=== PATIENT | male | born 1940 | race Caucasian/White ===

== ENCOUNTER 2016-10-17 13:44 | Outpatient (RCR) | payer MEDICARE, OTHER ==
--- OUTSIDE RECORDS SUMMARY | 2016-08-03 13:04 | XMS REPORT | Continuity of Care Document ---
Author Author [facility] Organization [facility] Address Unknown Phone Unavailable Care Team Providers Care Garment Form Assembler Name Role Phone Loy Bonner PCP [phone] Source Comments Some departments are not documenting in the electronic medical record. If you do not see the information that you expected, contact Release of Information in the Health Information Management department at [phone] for further assistance in locating additional records.[facility] Active Allergies and Adverse Reactions No Known Allergies Current Medications Prescription Sig. Disp. Refills Start End Date Status Date amLODIPine (NORVASC) 10 Take 10 mg by mouth Active mg tablet daily. levothyroxine (SYNTHROID) Take 50 mcg by mouth Active 50 mcg tablet daily. PARoxetine (PAXIL) 20 mg Take 20 mg by mouth Active tablet daily. hydrocortisone (CORTEF) Take 20 mg by mouth Active 20 mg tablet daily. omeprazole DR(+) Take 20 mg by mouth Active (PRILOSEC) 20 mg capsule daily. ALPRAZolam (XANAX) 0.5 mg Take 0.5 mg by mouth at Active tablet bedtime as needed. guaiFENesin LA (MUCINEX) Take 600 mg by mouth Active 600 mg tablet twice daily. metoprolol (LOPRESSOR) 25 Take 25 mg by mouth twice Active mg tablet daily. ALBUTEROL IN Inhale by mouth. Active ferrous sulfate 325 mg Take 325 mg by mouth Active (65 mg iron) tablet daily. rivaroxaban (XARELTO) 20 Take 20 mg by mouth. Active mg tab tablet other medication (IV) 1 Dose. Iron shots (5 Active total) brimonidine (ALPHAGAN P) Apply 1 Drop to both eyes 5 mL 2 06/21/20 Active 0.15 % ophthalmic twice daily. 16 solution dorzolamide (TRUSOPT) 2 % Insert or Apply 1 Drop to 5 mL 6 03/14/20 Active ophthalmic solution right eye as directed 16 three times daily. 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 Remains with good ON on clinical examination. Low/normal IOP on current drop regimen. CPM. 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 I discussed diagnosis and plan for intravitreal injection with patient. Risks, benefits and alternatives were discussed with patient. Risk of infection, and signs and symptoms of infection discussed at length with patient. Discussed fluctuating and deteriorating vision over the course of treatment. Patient elects to proceed with injection, informed consent was obtained and all questions were answered. Injection procedure: Site: OD x OS Posterior Sub-Tenon Subconj Intravitreous x Pre-injection drops: Tetracaine 0.5% drops x 5% Betadine x Betadine swab to lids x Speculum used Other Injection medication: Concentration Volume (in mL) Aflibercept (Eylea) 2 mg / 0.05 mL 0.05 Ranibizumab (Lucentis) 0.3 mg / 0.05 mL Ranibizumab (Lucentis) 0.5 mg / 0.05 mL Bevacizumab (Avastin) 1.25 mg / 0.05 mL Triamcinolone (Kenalog) 40 mg / mL Triamcinolone (Triesence) 40 mg / mL Vancomycin 1 mg / 100 microLiters Ceftazidime 2 mg / 100 microLiters ILuvien Lot # See NOV Expiration date: Injection Needle: 27 Gauge Needle 30 Gauge Needle x Needle supplied with medication Post-operative examination: Central retinal artery perfused by binocular indirect ophthalmoscopy Intraocular pressure checked by tonopen and found to be _41__ mmHg x Intraocular pressure checked by applanation and found to be ___ mmHg I personally performed the Injection ATTESTATION I personally performed the E/M including history, physical exam, and MDM. 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 Macular edema stable. Plan for VINOD OD today I discussed diagnosis and plan for intravitreal injection with patient. Risks, benefits and alternatives were discussed with patient. Risk of infection, and signs and symptoms of infection discussed at length with patient. Discussed fluctuating and deteriorating vision over the course of treatment. Patient elects to proceed with injection, informed consent was obtained and all questions were answered. Injection procedure: Site: OD x OS Posterior Sub-Tenon Subconj Intravitreous x Pre-injection drops: Tetracaine 0.5% drops x 5% Betadine x Betadine swab to lids x Speculum used Other Injection medication: Concentration Volume (in mL) Aflibercept (Eylea) 2 mg / 0.05 mL 0.05 Ranibizumab (Lucentis) 0.3 mg / 0.05 mL Ranibizumab (Lucentis) 0.5 mg / 0.05 mL Bevacizumab (Avastin) 1.25 mg / 0.05 mL Triamcinolone (Kenalog) 40 mg / mL Triamcinolone (Triesence) 40 mg / mL Vancomycin 1 mg / 100 microLiters Ceftazidime 2 mg / 100 microLiters ILuvien Lot # See NOV Expiration date: Injection Needle: 27 Gauge Needle 30 Gauge Needle x Needle supplied with medication Post-operative examination: Central retinal artery perfused by binocular indirect ophthalmoscopy Intraocular pressure checked by tonopen and found to be _33__ mmHg x Intraocular pressure checked by applanation and found to be ___ mmHg I personally performed the Injection Retinal edema right eye 10/17/2013 Last Assessment & Plan: Formatting of this note may be different from the original. I discussed diagnosis and plan for intravitreal injection with patient. Risks, benefits and alternatives were discussed with patient. Risk of infection, and signs and symptoms of infection discussed at length with patient. Discussed fluctuating and deteriorating vision over the course of treatment. Patient elects to proceed with injection, informed consent was obtained and all questions were answered. Injection procedure: Site: OD x OS Posterior Sub-Tenon Subconj Intravitreous x Pre-injection drops: Tetracaine 0.5% drops x 5% Betadine x Betadine swab to lids x Speculum used Other Injection medication: Concentration Volume (in mL) Aflibercept (Eylea) 2 mg / 0.05 mL 0.05 Ranibizumab (Lucentis) 0.3 mg / 0.05 mL Ranibizumab (Lucentis) 0.5 mg / 0.05 mL Bevacizumab (Avastin) 1.25 mg / 0.05 mL Triamcinolone (Kenalog) 40 mg / mL Triamcinolone (Triesence) 40 mg / mL Vancomycin 1 mg / 100 microLiters Ceftazidime 2 mg / 100 microLiters ILuvien Lot # See NOV Expiration date: Injection Needle: 27 Gauge Needle 30 Gauge Needle x Needle supplied with medication Post-operative examination: Central retinal artery perfused by binocular indirect ophthalmoscopy Intraocular pressure checked by tonopen and found to be ___ mmHg x Intraocular pressure checked by applanation and found to be ___ mmHg I personally performed the Injection HTN (hypertension) 08/26/2013 Hypothyroidism 08/26/2013 History of ARDS 08/26/2013 Overview: December 2005 - bilateral pseudomonas pneumonia with respiratory failure and ARDS Dilated aortic root (HCC) 08/26/2013 Interstitial lung disease (HCC) 08/25/2013 Emphysema/COPD ([facility]) 08/19/2013 Ascending aortic aneurysm ([facility]) 08/19/2013 Overview: 08/26/13 [facility] moderate diffuse CAD, moderate AI. Decreased diffusion capacity of lung 08/19/2013 CAD (coronary artery disease) 08/19/2013 Overview: 08/26/13 [facility] moderate diffuse CAD, moderate AI, dilated ascending AA. CTS consult to discuss aortic root replacement. 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 - right neck dissection with skin graft Most Recent Encounters Date Type Specialty Providers Description 08/01/2016 Office Visit Ophthalmology Tyler Vincent MD Retinal edema ( Primary Dx); 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 06/22/2016 Procedure visit Ophthalmology Tyler Vincent MD CRVO ( central retinal vein occlusion), right (Primary Dx); Retinal edema right eye 06/05/2016 Telephone Ophthalmology Tyler Vincent MD General Question 05/18/2016 Procedure visit Ophthalmology Tyler Vincent MD CRVO ( central retinal vein occlusion), right (Primary Dx); Central vein occlusion of retina, right Social History Tobacco Use Types Packs/Day Years Used Date Former Smoker Cigarettes 2 45 Quit: 09/24/2005 Alcohol Use Drinks/Week oz/Week Comments No Last Filed Vital Signs Vital Sign Reading Time Taken Blood Pressure 159/74 06/22/2016 9:28 AM CDT Pulse 76 06/22/2016 9:28 AM CDT Temperature 36.4 C (97.5 F) 08/26/2013 3:10 PM FRONT DESK RECEPTIONIST Respiratory Rate 26 08/19/2013 1:22 PM FRONT DESK RECEPTIONIST Height 1.75 m (5' 8.9") 08/01/2016 1:21 PM FRONT DESK RECEPTIONIST Weight 55.792 kg (123 lb) 08/01/2016 1:21 PM FRONT DESK RECEPTIONIST Body Mass Index 18.22 08/01/2016 1:21 PM FRONT DESK RECEPTIONIST Oxygen Saturation 97% 08/26/2013 3:11 PM FRONT DESK RECEPTIONIST Plan of Care Date Type Specialty Providers Description 09/05/2016 Appointment Ophthalmology Tyler Vincent MD [address] [address] [phone] (Fax) 09/12/2016 Appointment Ophthalmology Tyler Vincent MD [address] [place] [address] [phone] (Fax) Health Maintenance Due Date Last Done Comments Physical (Comprehensive) 1947 Exam Pertussis Vaccine 1951 Tetanus Vaccine 1957 Colorectal Cancer 1990 Screening Shingles Vaccine 2000 Prevnar/Pneumovax (#1) 2005 Influenza Vaccine 05/25/2016 Results from Last 3 Months SCAN COMP OPHTHAL DIAG IMG, POS SEG, RETINA (08/01/2016 1:42 PM)Only the most recent of 2 results within the time period is included.
[2016-08-03 13:22] LABS: BASOPHILS % (AUTO) 0 % (0-10); EOSINOPHILS % (AUTO) 0 % (0-10); LYMPHOCYTES # (AUTO) 0.4 X 10^3 (1.0-4.0); LYMPHOCYTES % (AUTO) 4 % (12-44); MEAN CORPUSCULAR HEMOGLOBIN 24 PG (25-34); MEAN CORPUSCULAR HGB CONC 31 G/DL (32-36); MEAN CORPUSCULAR VOLUME 78 FL (80-99); MEAN PLATELET VOLUME 8.8 FL (7.4-10.4); MONOCYTES # (AUTO) 0.2 X 10^3 (0.0-1.0); MONOCYTES % (AUTO) 2 % (0-12); NEUTROPHILS # (AUTO) 9.4 X 10^3 (1.8-7.8); NEUTROPHILS % (AUTO) 95 % (42-75); PLATELET COUNT 431 10^3/uL (130-400); RED BLOOD COUNT 4.13 10^6/uL (4.35-5.85); RED CELL DISTRIBUTION WIDTH 16.6 % (10.0-14.5)
[2016-08-03 13:48] LABS: ALANINE AMINOTRANSFERASE 9 U/L (0-55); ALBUMIN 3.7 G/DL (3.2-4.5); ANION GAP 11 MMOL/L (5-14); ASPARTATE AMINO TRANSFERASE 22 U/L (5-34); BILIRUBIN,TOTAL 0.5 MG/DL (0.1-1.0); BLOOD UREA NITROGEN 17 MG/DL (7-18); BUN/CREATININE RATIO 16; CALCIUM 9.4 MG/DL (8.5-10.1); CARBON DIOXIDE 22 MMOL/L (21-32); CHLORIDE 99 MMOL/L (98-107); CREATININE SERUM 1.04 MG/DL (0.60-1.30); GFR ESTIMATED > 60; GLUCOSE 220 MG/DL (70-105); POTASSIUM 4.3 MMOL/L (3.6-5.0); SODIUM 132 MMOL/L (135-145); TOTAL PROTEIN 7.9 G/DL (6.4-8.2)
[2016-08-03 14:09] LABS: THYROID STIMULATING HORMONE 2.87 UIU/ML (0.35-4.94)
[~2016-10-17 13:44] MED LIST changes: +FERRIC CARBOXYMALTOSE (CANCER) 750 MG in NS (IVPB) CANCER CENTER 250 ML IV SCH
[2016-10-17 15:08] LABS: BASOPHILS % (AUTO) 0 % (0-10); EOSINOPHILS % (AUTO) 0 % (0-10); LYMPHOCYTES # (AUTO) 0.5 X 10^3 (1.0-4.0); LYMPHOCYTES % (AUTO) 5 % (12-44); MEAN CORPUSCULAR HEMOGLOBIN 28 PG (25-34); MEAN CORPUSCULAR HGB CONC 32 G/DL (32-36); MEAN CORPUSCULAR VOLUME 88 FL (80-99); MEAN PLATELET VOLUME 8.8 FL (7.4-10.4); MONOCYTES # (AUTO) 0.6 X 10^3 (0.0-1.0); MONOCYTES % (AUTO) 6 % (0-12); NEUTROPHILS # (AUTO) 8.5 X 10^3 (1.8-7.8); NEUTROPHILS % (AUTO) 89 % (42-75); PLATELET COUNT 318 10^3/uL (130-400); RED CELL DISTRIBUTION WIDTH 19.7 % (10.0-14.5); WHITE BLOOD COUNT 9.6 10^3/uL (4.3-11.0)
== END 2016-11-01 | disposition home or self-care (01) ==
LOC: ONC 13:44
PROVIDERS: ATTEND Internal Medicine Hematology & Oncology
DX: Z08 Encounter for follow-up examination after completed treatment for malignant neoplasm (principal); Z85.818 Personal history of malignant neoplasm of other sites of lip, oral cavity, and pharynx; Z85.46 Personal history of malignant neoplasm of prostate; D50.9 Iron deficiency anemia, unspecified; R59.0 Localized enlarged lymph nodes; I71.6 Thoracoabdominal aortic aneurysm, without rupture; E89.0 Postprocedural hypothyroidism; N18.3 Chronic kidney disease, stage 3 (moderate); J43.9 Emphysema, unspecified; J90 Pleural effusion, not elsewhere classified; K57.30 Diverticulosis of large intestine without perforation or abscess without bleeding; Z79.899 Other long term (current) drug therapy; Z92.3 Personal history of irradiation; Z92.21 Personal history of antineoplastic chemotherapy
CPT/HCPCS: 36415; 80053; 82274; 82728; 84443; 85025; 96365; 99213

== ENCOUNTER → 2016-10-17 | Outpatient (CLI) | payer MEDICARE, OTHER ==
[~2016-10-17] MED LIST: AC500T; ACHD5005 PO; ALBU8.5H2 IH; ALPR.5T PO; AML5T; AMLO10TA82 PO; AMLO5TAB2 PO; ASP81CT PO; AZIT-21 PO; BRIM5DRO12 OD; CEFU500T34 PO; ENLP10T PO; ENLP5T PO; FERR-57 PO; GFN600TCR PO; GUAI100S; GUAI100S PO; HYDR-3002 PO; HYDR10TA13 PO; HYDR20TA PO; HYDR20TA2 PO; IMIP25TA4 PO; IPRA4AER INH; LATA2.5D5 OP; LEVO500T69 PO; LEVO75TA6 PO; LOSA100T7 PO; LRT10T; LVF500T GT; LVF500T PO; LVT.05T PO; METO25TA2 PO; METO50TA2 PO; METOPROLOL TART PO; MTP100TCR PO; MTP50T PO; NYST1000 PO; OMEP20CA6 PO; OMEP40CA36 PO; PNT40TEC; PRX20T PO; PRX25T; RIVA15TA PO; RIVA20TA2 PO; RT-COMBINH INH; TRAM-21 PO; TRAM-42 PO; ZLP5T PO
--- OUTSIDE RECORDS SUMMARY | 2016-10-17 09:49 | XMS REPORT | Continuity of Care Document ---
Author Author [facility] Organization [facility] Address Unknown Phone Unavailable Care Team Providers Care Litigation Examiner Name Role Phone Loy Bonner PCP [phone] Source Comments Some departments are not documenting in the electronic medical record. If you do not see the information that you expected, contact Release of Information in the Health Information Management department at [phone] for further assistance in locating additional records.[facility] Active Allergies and Adverse Reactions No Known [...] 1 Dose. Iron shots (5 Active total) dorzolamide (TRUSOPT) 2 % Insert or Apply 1 Drop to 5 mL 6 03/14/20 Active ophthalmic solution right eye as directed 16 three times daily. brimonidine (ALPHAGAN P) PLACE 1 DROP INTO BOTH 10 mL 6 10/03/19 Active 0.15 % ophthalmic EYES TWO TIMES A DAY 17 solution brimonidine (ALPHAGAN P) Apply 1 Drop to both eyes 5 mL 2 03/14/20 10/02/19 Discontin 0.15 % ophthalmic twice daily. 16 17 ued solution Hospital, Clinic, or Ordered Dose Route Frequency Start End Date Status Other Facility Date Administered Medication aflibercept(+) (EYLEA) 2mg INTRAVITREAL ONCE 10/03/19 10/03/19 Ended intravitreal injection 2 17 17 mg Active Problems Problem Noted Date Dry [...] note may be different from the original. With CME OS. Will defer VINOD OD today and VINOD OS next visit. I discussed diagnosis and plan for intravitreal injection with patient. Risks, benefits and alternatives were discussed with patient. Risk of infection, and signs and symptoms of infection discussed at length with patient. Discussed fluctuating and deteriorating vision over the course of treatment. Patient elects to proceed with injection, informed consent was obtained and all questions were answered. Injection procedure: Site: OD OS x Posterior Sub-Tenon Subconj Intravitreous x Pre-injection drops: [...] checked by tonopen and found to be _26__ mmHg x Intraocular pressure checked by applanation [...] note may be different from the original. OCT Stable with ERM. I discussed diagnosis and plan for intravitreal [...] checked by tonopen and found to be _34__ mmHg x Intraocular pressure checked by applanation and found to be ___ mmHg I personally performed the Injection ATTESTATION I personally performed the E/M including history, physical exam, and MDM. Tyler Vincent MD HTN (hypertension) 08/26/2013 Hypothyroidism 08/26/2013 History of ARDS 08/26/2013 Overview: December 2005 - bilateral pseudomonas pneumonia with respiratory failure and ARDS Dilated aortic root (HCC) 08/26/2013 Interstitial lung disease (HCC) 08/25/2013 Emphysema/COPD ([facility]) 08/19/2013 Ascending aortic aneurysm (HCC) 08/19/2013 Overview: 08/26/13 [facility] moderate diffuse CAD, moderate AI. Decreased diffusion capacity of lung 08/19/2013 CAD (coronary artery disease) 08/19/2013 Overview: 08/26/13 [facility] moderate diffuse CAD, moderate AI, dilated ascending AA. CTS consult to discuss aortic root replacement. 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 (Primary Dx) 10/02/2016 Refill Ophthalmology Tyler Vincent MD 09/05/2016 Office Visit Ophthalmology Tyler Vincent MD Retinal edema right eye (Primary Dx) 08/01/2016 Office Visit Ophthalmology Tyler Vincent MD Retinal edema ( Primary Dx); 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 Social History Tobacco Use Types Packs/Day Years Used Date Former Smoker Cigarettes 2 45 Quit: 09/24/2005 Smokeless Tobacco: Never Used Alcohol Use Drinks/Week oz/Week Comments No Last Filed Vital Signs Vital Sign Reading Time Taken Blood Pressure 137/67 10/03/2016 1:34 PM MOP WORKER Pulse 67 10/03/2016 1:34 PM MOP WORKER Temperature 36.4 C (97.5 F) 08/26/2013 3:10 PM MOP WORKER Respiratory Rate 26 08/19/2013 1:22 PM MOP WORKER Height 1.753 m (5' 9") 10/03/2016 1:34 PM MOP WORKER Weight 53.071 kg (117 lb) 10/03/2016 1:34 PM MOP WORKER Body Mass Index 17.27 10/03/2016 1:34 PM MOP WORKER Oxygen Saturation 97% 08/26/2013 3:11 PM MOP WORKER Plan of Care Date Type Specialty Providers Description 11/06/2016 Appointment Ophthalmology Doug Alejandro MD [address] [place] [address] [phone] (Fax) Health Maintenance Due Date Last Done Comments Physical (Comprehensive) 1947 Exam Pertussis Vaccine 1951 Tetanus Vaccine 1957 Colorectal Cancer 1990 Screening Shingles Vaccine 2000 Prevnar/Pneumovax (#1) 2005 Influenza Vaccine 05/25/2016 Results from Last 3 Months SCAN COMP OPHTHAL DIAG IMG, POS SEG, RETINA (08/01/2016 1:42 PM)
== END ==
LOC: RAD 09:46
PROVIDERS: ATTEND Otolaryngology Otolaryngology/Facial Plastic Surgery
DX: R13.19 Other dysphagia (principal)

== ENCOUNTER 2016-11-02 09:00 | Outpatient (RCR) | payer MEDICARE, OTHER ==
--- OUTSIDE RECORDS SUMMARY | 2016-08-22 09:47 | XMS REPORT | Continuity of Care Document ---
Author Author [facility] Organization [facility] Address Unknown Phone Unavailable Care Team Providers Care Assistant County Attorney Name Role Phone Loy Bonner PCP [phone] Source Comments Some departments are not documenting in the electronic medical record. If you do not see the information that you expected, contact Release of Information in the Health Information Management department at [phone] for further assistance in locating additional records.[facility] Active Allergies and Adverse Reactions No [...] lung disease (HCC) 08/25/2013 Emphysema/COPD ([facility]) 08/19/2013 Ascending aortic aneurysm ([facility]) 08/19/2013 Overview: 08/26/13 [facility] moderate diffuse CAD, moderate AI. Decreased diffusion capacity of lung 08/19/2013 CAD (coronary artery disease) 08/19/2013 Overview: 08/26/13 [facility] moderate diffuse CAD, moderate AI, dilated ascending [...] Telephone Ophthalmology Tyler Vincent MD General Question Social History Tobacco Use Types Packs/Day Years Used Date Former Smoker Cigarettes 2 45 Quit: 09/24/2005 Alcohol Use Drinks/Week oz/Week Comments No Last Filed Vital Signs Vital Sign Reading Time Taken Blood Pressure 159/74 06/22/2016 9:28 AM CDT Pulse 76 06/22/2016 9:28 AM CDT Temperature 36.4 C (97.5 F) 08/26/2013 3:10 PM WATER SYSTEM OPERATOR Respiratory Rate 26 08/19/2013 1:22 PM WATER SYSTEM OPERATOR Height 1.75 m (5' 8.9") 08/01/2016 1:21 PM WATER SYSTEM OPERATOR Weight 55.792 kg (123 lb) 08/01/2016 1:21 PM WATER SYSTEM OPERATOR Body Mass Index 18.22 08/01/2016 1:21 PM WATER SYSTEM OPERATOR Oxygen Saturation 97% 08/26/2013 3:11 PM WATER SYSTEM OPERATOR Plan of Care Date Type Specialty Providers Description 09/05/2016 Appointment Ophthalmology Tyler Vincent MD [address] [place] [address] [phone] (Fax) 09/12/2016 Appointment Ophthalmology Tyler Vincent MD [address] [place] [address] [phone] (Fax) Health Maintenance Due Date Last Done [...]
[~2016-11-02 09:00] MED LIST changes: -FERRIC CARBOXYMALTOSE (CANCER) 750 MG in NS (IVPB) CANCER CENTER 250 ML IV SCH
== END 2016-11-20 | disposition home or self-care (01) ==
LOC: PULM 09:00
PROVIDERS: ATTEND Nurse Practitioner Family
DX: J84.9 Interstitial pulmonary disease, unspecified (principal); R06.02 Shortness of breath; G47.34 Idiopathic sleep related nonobstructive alveolar hypoventilation

== ENCOUNTER 2016-11-09 10:52 | Outpatient (RCR) | payer MEDICARE, OTHER ==
--- OUTSIDE RECORDS SUMMARY | 2016-11-09 10:55 | XMS REPORT | Continuity of Care Document ---
Author Author [facility] Organization [facility] Address Unknown Phone Unavailable Care Team Providers Care Annual Giving Officer Name Role Phone Loy Bonner PCP [phone] Source Comments Some departments are not documenting in the electronic medical record. If you do not see the information that you expected, contact Release of Information in the Health Information Management department at [phone] for further assistance in locating additional records.[facility] Active Allergies and Adverse Reactions [...] Apply 1 Drop to 5 mL 6 06/21/20 Active ophthalmic solution right eye as directed 16 three times daily. brimonidine (ALPHAGAN P) PLACE 1 DROP INTO BOTH 10 mL 6 10/03/19 Active 0.15 % ophthalmic EYES TWO TIMES A DAY 17 solution Hospital, Clinic, or Ordered Dose Route Frequency Start End Date Status Other Facility Date Administered Medication aflibercept(+) (EYLEA) 2mg INTRAVITREAL ONCE 11/06/19 11/06/19 Ended intravitreal injection 2 17 17 mg [...] retinal vein occlusion of right eye 10/17/2013 Overview: VINOD OD q 4 weeks No treatment for OS as of now. L ast Assessment & Plan: Formatting of this note may be different from the original. Intravitreal Injection Procedure OCT and other investigations were carefully reviewed and a decision was made to inject the eye with medication for treatment of the condition. I discussed diagnosis and plan for intravitreal injection with patient. Risks, benefits and alternatives were discussed with patient. Risk of infection, and signs and symptoms of infection discussed at length with patient. Discussed fluctuating and deteriorating vision over the course of treatment. Patient elects to proceed with injection, informed consent was obtained and all questions were answered. Eye OD Diagnosis: CME from CRVO Pre-injection drops: Tetracaine 0.5% drops X 5% Betadine X Speculum used X Tetravisc X Injection Needle: 27 Gauge Needle 30 Gauge Needle Needle supplied with medication X Intravitreal injection: Concentration Volume (in mL) Aflibercept (Eylea) 2 mg / 0.05 mL x Ranibizumab (Lucentis) 0.3 mg / 0.05 mL Ranibizumab (Lucentis) 0.5 mg / 0.05 mL Bevacizumab (Avastin) 1.25 mg / 0.05 mL Triamcinolone (Kenalog) 40 mg / mL Triamcinolone (Triesence) 40 mg / mL Vancomycin 1 mg / 100 microLiters Ceftazidime 2 mg / 100 microLiters Zero units wasted Post-operative examination: Intraocular pressure checked by tonopen and found to be wnl mmHg; no complications noted X Antibiotic ointment instilled in the eye Patient stable at discharge I personally performed the Injection Doug Alejandro MD Retinal edema right eye 10/17/2013 Last Assessment [...] lung disease (HCC) 08/25/2013 Emphysema/COPD ([facility]) 08/19/2013 Ascending aortic aneurysm (HCC) 08/19/2013 Overview: 08/26/13 [facility] moderate diffuse CAD, moderate AI. 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 (Primary Dx) 10/02/2016 Refill Ophthalmology Tyler Vincent MD 09/05/2016 Office Visit Ophthalmology Tyler Vincent MD Retinal edema right eye (Primary Dx) Social History Tobacco Use Types Packs/Day Years Used Date Former Smoker Cigarettes 2 45 Quit: 09/24/2005 Smokeless Tobacco: Never Used Alcohol Use Drinks/Week oz/Week Comments No 0 Standard 0.0 drinks or equivalent Last Filed Vital Signs Vital Sign Reading Time Taken Blood Pressure 167/94 11/06/2016 10:57 AM PRECINCT I POLICE SERGEANT Pulse 80 11/06/2016 10:57 AM PRECINCT I POLICE SERGEANT Temperature 36.4 C (97.5 F) 08/26/2013 3:10 PM PRECINCT I POLICE SERGEANT Respiratory Rate 26 08/19/2013 1:22 PM PRECINCT I POLICE SERGEANT Height 1.753 m (5' 9") 11/06/2016 10:57 AM PRECINCT I POLICE SERGEANT Weight 54.1 kg (119 lb 4.3 oz) 11/06/2016 10:57 AM PRECINCT I POLICE SERGEANT Body Mass Index 17.6 11/06/2016 10:57 AM PRECINCT I POLICE SERGEANT Oxygen Saturation 97% 08/26/2013 3:11 PM PRECINCT I POLICE SERGEANT Plan of Care Date Type Specialty Providers Description 12/04/2016 Appointment Ophthalmology Doug Alejandro MD [address] [place] [address] [phone] (Fax) Health Maintenance Due Date Last Done Comments Physical (Comprehensive) 1947 Exam Pertussis Vaccine 1951 Tetanus Vaccine 1957 Shingles Vaccine 2000 Prevnar/Pneumovax (#1) 2005 Influenza Vaccine 05/25/2016 Results from Last 3 Months Not on file
[2016-11-09 11:04] LABS: BASOPHILS % (AUTO) 0 % (0-10); EOSINOPHILS # (AUTO) 0.1 10^3/uL (0.0-0.3); EOSINOPHILS % (AUTO) 1 % (0-10); LYMPHOCYTES # (AUTO) 0.5 X 10^3 (1.0-4.0); LYMPHOCYTES % (AUTO) 4 % (12-44); MEAN CORPUSCULAR HEMOGLOBIN 30 PG (25-34); MEAN CORPUSCULAR HGB CONC 33 G/DL (32-36); MEAN CORPUSCULAR VOLUME 90 FL (80-99); MEAN PLATELET VOLUME 8.7 FL (7.4-10.4); MONOCYTES # (AUTO) 0.6 X 10^3 (0.0-1.0); MONOCYTES % (AUTO) 6 % (0-12); NEUTROPHILS # (AUTO) 10.3 X 10^3 (1.8-7.8); NEUTROPHILS % (AUTO) 89 % (42-75); PLATELET COUNT 360 10^3/uL (130-400); RED BLOOD COUNT 4.09 10^6/uL (4.35-5.85); RED CELL DISTRIBUTION WIDTH 17.5 % (10.0-14.5); WHITE BLOOD COUNT 11.5 10^3/uL (4.3-11.0)
[2016-11-09 11:49] LABS: ALANINE AMINOTRANSFERASE 10 U/L (0-55); ANION GAP 12 MMOL/L (5-14); ASPARTATE AMINO TRANSFERASE 25 U/L (5-34); BILIRUBIN,TOTAL 0.4 MG/DL (0.1-1.0); BLOOD UREA NITROGEN 16 MG/DL (7-18); BUN/CREATININE RATIO 17; CALCIUM 9.9 MG/DL (8.5-10.1); CARBON DIOXIDE 24 MMOL/L (21-32); CHLORIDE 100 MMOL/L (98-107); CREATININE SERUM 0.92 MG/DL (0.60-1.30); GFR ESTIMATED > 60; GLUCOSE 83 MG/DL (70-105); POTASSIUM 4.5 MMOL/L (3.6-5.0); SODIUM 136 MMOL/L (135-145); TOTAL PROTEIN 8.4 G/DL (6.4-8.2)
== END 2017-02-07 | disposition home or self-care (01) ==
LOC: ONC 10:52
PROVIDERS: ATTEND Internal Medicine Hematology & Oncology
DX: Z08 Encounter for follow-up examination after completed treatment for malignant neoplasm (principal); Z85.818 Personal history of malignant neoplasm of other sites of lip, oral cavity, and pharynx; Z85.46 Personal history of malignant neoplasm of prostate; D50.9 Iron deficiency anemia, unspecified; R59.0 Localized enlarged lymph nodes; I71.6 Thoracoabdominal aortic aneurysm, without rupture; E89.0 Postprocedural hypothyroidism; N18.3 Chronic kidney disease, stage 3 (moderate); J43.9 Emphysema, unspecified; J90 Pleural effusion, not elsewhere classified; K57.30 Diverticulosis of large intestine without perforation or abscess without bleeding; Z79.899 Other long term (current) drug therapy; Z92.3 Personal history of irradiation; Z92.21 Personal history of antineoplastic chemotherapy
CPT/HCPCS: 36415; 80053; 82728; 85025; 99213

== ENCOUNTER 2016-11-10 10:58 | Outpatient (RCR) | payer MEDICARE, OTHER ==
--- OUTSIDE RECORDS SUMMARY | 2016-10-27 10:54 | XMS REPORT | Continuity of Care Document ---
Author Author [facility] Organization [facility] Address Unknown Phone Unavailable Care Team Providers Care Bouffant Curtain Machine Tender Name Role Phone Loy Bonner PCP [phone] Source Comments Some departments are not documenting in the electronic medical record. If you do not see the information that you expected, contact Release of Information in the Health Information Management department at [phone] for further assistance in locating additional records.[facility] Active Allergies and Adverse Reactions No [...] lung disease (HCC) 08/25/2013 Emphysema/COPD ([facility]) 08/19/2013 Ascending aortic aneurysm (HCC) 08/19/2013 Overview: 08/26/13 [facility] moderate diffuse CAD, moderate AI. Decreased diffusion capacity of lung 08/19/2013 CAD (coronary artery disease) 08/19/2013 Overview: 08/26/13 [facility] moderate diffuse CAD, moderate AI, dilated [...] Taken Blood Pressure 137/67 10/03/2016 1:34 PM COFFEE BREWER Pulse 67 10/03/2016 1:34 PM COFFEE BREWER Temperature 36.4 C (97.5 F) 08/26/2013 3:10 PM COFFEE BREWER Respiratory Rate 26 08/19/2013 1:22 PM COFFEE BREWER Height 1.753 m (5' 9") 10/03/2016 1:34 PM COFFEE BREWER Weight 53.071 kg (117 lb) 10/03/2016 1:34 PM COFFEE BREWER Body Mass Index 17.27 10/03/2016 1:34 PM COFFEE BREWER Oxygen Saturation 97% 08/26/2013 3:11 PM COFFEE BREWER Plan of Care Date Type Specialty Providers Description 11/06/2016 Appointment Ophthalmology Doug Alejandro MD [address] [place] [address] [phone] (Fax) Health Maintenance Due Date Last Done Comments Physical (Comprehensive) 1947 Exam Pertussis Vaccine 1951 Tetanus Vaccine 1957 Colorectal Cancer 1990 Screening Shingles Vaccine 2000 Prevnar/Pneumovax (#1) 2005 Influenza Vaccine 05/25/2016 Results from Last 3 Months SCAN COMP OPHTHAL DIAG IMG, POS SEG, RETINA (08/01/2016 1:42 PM)
== END 2016-11-10 11:31 | disposition home or self-care (01) ==
PROVIDERS: ATTEND Otolaryngology Otolaryngology/Facial Plastic Surgery
DX: R13.12 Dysphagia, oropharyngeal phase (principal); Z85.818 Personal history of malignant neoplasm of other sites of lip, oral cavity, and pharynx

== ENCOUNTER 2017-02-12 09:23 | Outpatient (RCR) | payer MEDICARE, OTHER | END 2017-05-13 | disposition home or self-care (01) | LOC: PULM 09:23 | PROVIDERS: ATTEND Nurse Practitioner Family | DX: J84.9 Interstitial pulmonary disease, unspecified (principal); R06.02 Shortness of breath; G47.34 Idiopathic sleep related nonobstructive alveolar hypoventilation ==

== ENCOUNTER 2017-03-29 10:57 | Outpatient (RCR) | payer MEDICARE, OTHER ==
[2017-02-12 09:26] LABS: BASOPHILS % (AUTO) 0 % (0-10); EOSINOPHILS # (AUTO) 0.1 10^3/uL (0.0-0.3); EOSINOPHILS % (AUTO) 1 % (0-10); LYMPHOCYTES # (AUTO) 0.4 X 10^3 (1.0-4.0); LYMPHOCYTES % (AUTO) 3 % (12-44); MEAN CORPUSCULAR HEMOGLOBIN 29 PG (25-34); MEAN CORPUSCULAR HGB CONC 32 G/DL (32-36); MEAN CORPUSCULAR VOLUME 91 FL (80-99); MONOCYTES # (AUTO) 0.8 X 10^3 (0.0-1.0); MONOCYTES % (AUTO) 6 % (0-12); NEUTROPHILS # (AUTO) 12.8 X 10^3 (1.8-7.8); NEUTROPHILS % (AUTO) 91 % (42-75); PLATELET COUNT 305 10^3/uL (130-400); RED BLOOD COUNT 3.81 10^6/uL (4.35-5.85); RED CELL DISTRIBUTION WIDTH 13.9 % (10.0-14.5); WHITE BLOOD COUNT 14.1 10^3/uL (4.3-11.0)
[2017-02-12 09:48] LABS: ALANINE AMINOTRANSFERASE 9 U/L (0-55); ALBUMIN 3.6 G/DL (3.2-4.5); ANION GAP 9 MMOL/L (5-14); ASPARTATE AMINO TRANSFERASE 19 U/L (5-34); BILIRUBIN,TOTAL 0.7 MG/DL (0.1-1.0); BLOOD UREA NITROGEN 13 MG/DL (7-18); BUN/CREATININE RATIO 14; CALCIUM 9.4 MG/DL (8.5-10.1); CARBON DIOXIDE 24 MMOL/L (21-32); CHLORIDE 98 MMOL/L (98-107); GFR ESTIMATED > 60; GLUCOSE 149 MG/DL (70-105); POTASSIUM 4.1 MMOL/L (3.6-5.0); SODIUM 131 MMOL/L (135-145); TOTAL PROTEIN 7.6 G/DL (6.4-8.2)
[2017-03-29 11:27] LABS: BASOPHILS % (AUTO) 0 % (0-10); EOSINOPHILS # (AUTO) 0.1 10^3/uL (0.0-0.3); EOSINOPHILS % (AUTO) 1 % (0-10); LYMPHOCYTES # (AUTO) 0.4 X 10^3 (1.0-4.0); LYMPHOCYTES % (AUTO) 4 % (12-44); MEAN CORPUSCULAR HEMOGLOBIN 29 PG (25-34); MEAN CORPUSCULAR HGB CONC 32 G/DL (32-36); MEAN CORPUSCULAR VOLUME 91 FL (80-99); MEAN PLATELET VOLUME 8.8 FL (7.4-10.4); MONOCYTES # (AUTO) 0.5 X 10^3 (0.0-1.0); MONOCYTES % (AUTO) 5 % (0-12); NEUTROPHILS # (AUTO) 8.4 X 10^3 (1.8-7.8); NEUTROPHILS % (AUTO) 90 % (42-75); PLATELET COUNT 334 10^3/uL (130-400); RED BLOOD COUNT 4.03 10^6/uL (4.35-5.85); RED CELL DISTRIBUTION WIDTH 14.4 % (10.0-14.5); WHITE BLOOD COUNT 9.3 10^3/uL (4.3-11.0)
== END 2017-05-13 | disposition home or self-care (01) ==
LOC: ONC 10:57
PROVIDERS: ATTEND Internal Medicine Hematology & Oncology
DX: Z08 Encounter for follow-up examination after completed treatment for malignant neoplasm (principal); Z85.818 Personal history of malignant neoplasm of other sites of lip, oral cavity, and pharynx; Z85.46 Personal history of malignant neoplasm of prostate; D50.9 Iron deficiency anemia, unspecified; R59.0 Localized enlarged lymph nodes; I71.6 Thoracoabdominal aortic aneurysm, without rupture; E89.0 Postprocedural hypothyroidism; N18.3 Chronic kidney disease, stage 3 (moderate); J43.9 Emphysema, unspecified; J90 Pleural effusion, not elsewhere classified; K57.30 Diverticulosis of large intestine without perforation or abscess without bleeding; Z79.899 Other long term (current) drug therapy; Z92.3 Personal history of irradiation; Z92.21 Personal history of antineoplastic chemotherapy
CPT/HCPCS: 36415; 80053; 82728; 84443; 85025; 99213

== ENCOUNTER 2017-05-17 11:10 | Outpatient (RCR) | payer MEDICARE, OTHER ==
[2017-05-17 11:46] LABS: BASOPHILS % (AUTO) 0 % (0-10); EOSINOPHILS # (AUTO) 0.1 10^3/uL (0.0-0.3); EOSINOPHILS % (AUTO) 1 % (0-10); LYMPHOCYTES # (AUTO) 0.4 X 10^3 (1.0-4.0); LYMPHOCYTES % (AUTO) 3 % (12-44); MEAN CORPUSCULAR HEMOGLOBIN 29 PG (25-34); MEAN CORPUSCULAR HGB CONC 33 G/DL (32-36); MEAN CORPUSCULAR VOLUME 89 FL (80-99); MEAN PLATELET VOLUME 8.9 FL (7.4-10.4); MONOCYTES # (AUTO) 0.6 X 10^3 (0.0-1.0); MONOCYTES % (AUTO) 5 % (0-12); NEUTROPHILS # (AUTO) 10.2 X 10^3 (1.8-7.8); NEUTROPHILS % (AUTO) 91 % (42-75); PLATELET COUNT 338 10^3/uL (130-400); RED BLOOD COUNT 3.92 10^6/uL (4.35-5.85); RED CELL DISTRIBUTION WIDTH 14.1 % (10.0-14.5); WHITE BLOOD COUNT 11.2 10^3/uL (4.3-11.0)
[2017-05-17 12:11] LABS: ALANINE AMINOTRANSFERASE 9 U/L (0-55); ALBUMIN 3.7 GM/DL (3.2-4.5); ANION GAP 9 MMOL/L (5-14); ASPARTATE AMINO TRANSFERASE 21 U/L (5-34); BILIRUBIN,TOTAL 0.5 MG/DL (0.1-1.0); BLOOD UREA NITROGEN 17 MG/DL (7-18); BUN/CREATININE RATIO 18; CARBON DIOXIDE 26 MMOL/L (21-32); CHLORIDE 99 MMOL/L (98-107); CREATININE SERUM 0.97 MG/DL (0.60-1.30); GFR ESTIMATED > 60; GLUCOSE 160 MG/DL (70-105); LACTATE DEHYDROGENASE 196 U/L (125-220); POTASSIUM 4.4 MMOL/L (3.6-5.0); SODIUM 134 MMOL/L (135-145); TOTAL PROTEIN 8.6 GM/DL (6.4-8.2)
== END 2017-06-23 | disposition home or self-care (01) ==
LOC: ONC 11:10
PROVIDERS: ATTEND Internal Medicine Hematology & Oncology
DX: Z79.899 Other long term (current) drug therapy; Z92.3 Personal history of irradiation; Z08 Encounter for follow-up examination after completed treatment for malignant neoplasm; R59.0 Localized enlarged lymph nodes; D50.9 Iron deficiency anemia, unspecified; Z92.21 Personal history of antineoplastic chemotherapy; Z85.46 Personal history of malignant neoplasm of prostate; N18.3 Chronic kidney disease, stage 3 (moderate); Z85.818 Personal history of malignant neoplasm of other sites of lip, oral cavity, and pharynx; J43.9 Emphysema, unspecified; J90 Pleural effusion, not elsewhere classified; K57.30 Diverticulosis of large intestine without perforation or abscess without bleeding; I71.6 Thoracoabdominal aortic aneurysm, without rupture; E89.0 Postprocedural hypothyroidism
CPT/HCPCS: 36415; 80053; 82728; 83615; 84443; 85025

== ENCOUNTER → 2017-06-18 | Outpatient (CLI) | payer MEDICARE, OTHER ==
--- NOTE | 2017-06-18 15:18 | Diagnostic Imaging Report ---
INDICATION: Productive cough. History of COPD. COMPARISON: 08/02/2016. FINDINGS: Frontal and lateral radiographic views of the chest were obtained and demonstrate interval development of patchy and confluent alveolar opacities within the lingula of the left upper lobe. This is superimposed on background of likely advanced chronic lung disease. There is no evidence of large effusion or pneumothorax. Cardiac silhouette is partially obscured, but appears to be within normal limits. Note is made of aortic atherosclerosis. Bony structures show no gross acute abnormalities. IMPRESSION: 1. Findings consistent with acute infiltrate in the lingula of the left upper lobe superimposed on probable advanced chronic lung disease. Dictated by: Dictated on workstation # [id number]
== END ==
LOC: RAD 14:44
PROVIDERS: ATTEND Nurse Practitioner
DX: R91.8 Other nonspecific abnormal finding of lung field (principal)
CPT/HCPCS: 71020

== ENCOUNTER → 2017-06-26 | Outpatient (CLI) | payer MEDICARE, OTHER | LOC: RAD 11:40 | PROVIDERS: ATTEND Nurse Practitioner | DX: J18.9 Pneumonia, unspecified organism (principal) | CPT/HCPCS: 71010 ==

== ENCOUNTER 2017-08-09 10:33 | Outpatient (RCR) | payer MEDICARE, OTHER ==
[2017-08-02 10:43] LABS: BASOPHILS % (AUTO) 1 % (0-10); EOSINOPHILS # (AUTO) 0.1 10^3/uL (0.0-0.3); EOSINOPHILS % (AUTO) 1 % (0-10); HEMATOCRIT 32 % (40-54); HEMOGLOBIN 10.1 G/DL (13.3-17.7); LYMPHOCYTES # (AUTO) 0.6 X 10^3 (1.0-4.0); LYMPHOCYTES % (AUTO) 8 % (12-44); MEAN CORPUSCULAR HEMOGLOBIN 27 PG (25-34); MEAN CORPUSCULAR HGB CONC 32 G/DL (32-36); MEAN CORPUSCULAR VOLUME 87 FL (80-99); MEAN PLATELET VOLUME 8.9 FL (7.4-10.4); MONOCYTES # (AUTO) 0.8 X 10^3 (0.0-1.0); MONOCYTES % (AUTO) 10 % (0-12); NEUTROPHILS # (AUTO) 6.3 X 10^3 (1.8-7.8); NEUTROPHILS % (AUTO) 80 % (42-75); PLATELET COUNT 400 10^3/uL (130-400); RED BLOOD COUNT 3.71 10^6/uL (4.35-5.85); RED CELL DISTRIBUTION WIDTH 15.1 % (10.0-14.5); WHITE BLOOD COUNT 7.9 10^3/uL (4.3-11.0)
[2017-08-02 10:51] LABS: ALANINE AMINOTRANSFERASE 10 U/L (0-55); ALBUMIN 3.4 GM/DL (3.2-4.5); ALKALINE PHOSPHATASE 51 U/L (40-136); BILIRUBIN,TOTAL 0.5 MG/DL (0.1-1.0); BUN/CREATININE RATIO 21; CALCIUM 9.6 MG/DL (8.5-10.1); CARBON DIOXIDE 27 MMOL/L (21-32); CHLORIDE 95 MMOL/L (98-107); CREATININE SERUM 0.82 MG/DL (0.60-1.30); GFR ESTIMATED > 60; GLUCOSE 119 MG/DL (70-105); POTASSIUM 4.5 MMOL/L (3.6-5.0); SODIUM 131 MMOL/L (135-145); TOTAL PROTEIN 8.1 GM/DL (6.4-8.2)
[~2017-08-09 10:33] MED LIST changes: -LATA2.5D5 OP; +LATA2.5D5 OU
[2017-08-27] MEDS ORDERED: FLUT1DIS26 IH (15:58)
[2017-08-27] MEDS ORDERED: LEVO112T55 PO (15:58)
[2017-08-27] MEDS ORDERED: RIVA20TA PO (15:58)
[2017-08-27] MEDS ORDERED: ALBU2.5V4 IH (15:58)
[2017-08-27] MEDS ORDERED: PARO20TA5 PO (15:58)
[2017-08-27] MEDS ORDERED: DORZ10DR2 OU (15:58)
[2017-08-27] MEDS ORDERED: PRED5TAB PO (15:58)
[2017-08-27] MEDS ORDERED: MONT10TA24 PO (15:58)
[2017-08-27] MEDS ORDERED: IPRA4AER IH (15:58)
[2017-08-27] MEDS ORDERED: ALPR0.5T7 PO (15:58)
[2017-08-27] MEDS ORDERED: BRIN8DRO OU (15:58)
[2017-08-27] MEDS ORDERED: BRIM5DRO2 OU (15:58)
[2017-08-27] MEDS ORDERED: OMEP40CA36 PO (15:58)
[2017-08-28] MEDS ORDERED: CEFD300C3 PO (11:40)
== END 2017-08-29 | disposition home or self-care (01) ==
LOC: ONC 10:33
PROVIDERS: ATTEND Internal Medicine Hematology & Oncology
DX: Z08 Encounter for follow-up examination after completed treatment for malignant neoplasm (principal); Z85.818 Personal history of malignant neoplasm of other sites of lip, oral cavity, and pharynx; Z85.46 Personal history of malignant neoplasm of prostate; D50.9 Iron deficiency anemia, unspecified; R59.0 Localized enlarged lymph nodes; I71.6 Thoracoabdominal aortic aneurysm, without rupture; E89.0 Postprocedural hypothyroidism; N18.3 Chronic kidney disease, stage 3 (moderate); J43.9 Emphysema, unspecified; J90 Pleural effusion, not elsewhere classified; K57.30 Diverticulosis of large intestine without perforation or abscess without bleeding; Z79.899 Other long term (current) drug therapy; Z92.3 Personal history of irradiation; Z92.21 Personal history of antineoplastic chemotherapy
CPT/HCPCS: 80053; 82728; 84443; 85025; 99213

== ENCOUNTER 2017-08-27 11:40 | Inpatient (IN) | payer MEDICARE, OTHER ==
[~2017-08-27] VITALS: Ht 175.3 cm; Wt 52.8 kg
--- OUTSIDE RECORDS SUMMARY | 2017-08-27 11:46 | XMS REPORT | Continuity of Care Document ---
Author Author [facility] Organization [facility] Address Unknown Phone Unavailable Care Team Providers Care Receptionist Doctor'S Office Name Role Phone [employer] Unavailable Unavailable Problems Medications Allergies, Adverse Reactions, Alerts Immunizations Results Vital Signs Encounters Location Location Details Encounter Type Encounter Number Reason For Visit Attending Provider ADM Date DC Date Status Source OUTPATIENT [id number] ALFREDO MAYES 08/19/201308/19 Active [facility] Kim DENNIS 07/19/2017 Active [facility] Procedures Plan of Care Social History Assessment and Plan Family History Value Date Source Advance Directives Order Name Results Value Date Source
--- OUTSIDE RECORDS SUMMARY | 2017-08-27 11:47 | XMS REPORT | Clinical Summary ---
Author Author [facility] Organization [facility] Address Unknown Phone Unavailable Care Team Providers Care Extrusion Operator Name Role Phone PCP Unavailable Source Comments Some departments are not documenting in the electronic medical record. If you do not see the information that you expected, contact Release of Information in the Health Information Management department at [phone] for further assistance in locating additional records.[facility] Allergies No Known Allergies Current Medications Prescription Sig. Disp. Refills Start End Date Status Date PARoxetine (PAXIL) 20 mg Take 20 mg by mouth Active tablet daily. hydrocortisone (CORTEF) Take 20 mg by mouth Active 20 mg tablet daily. omeprazole DR(+) Take 20 mg by mouth Active (PRILOSEC) 20 mg capsule daily. ALPRAZolam (XANAX) 0.5 mg Take 0.5 mg by mouth at Active tablet bedtime as needed. rivaroxaban (XARELTO) 20 Take 20 mg by mouth. Active mg tab tablet IPRATROPIUM/ALBUTEROL Inhale by mouth into the Active SULFATE (COMBIVENT IN) lungs. imipramine (TOFRANIL) 25 Take 25 mg by mouth at Active mg tablet bedtime daily. VIT A/C/E AC/ZNOX/CUPRIC Take by mouth. Active OXIDE (EYE VITAMIN AND MINERALS PO) montelukast (SINGULAIR) Take 10 mg by mouth at Active 10 mg tablet bedtime daily. FLUTICASONE/SALMETEROL Inhale by mouth into the Active (ADVAIR DISKUS IN) lungs. COMBIVENT RESPIMAT 20-100 12/20/19 Active mcg/actuation mist [address](+) 01/08/20 Active (PRILOSEC) 40 mg capsule 17 azithromycin (ZITHROMAX) Take 1 tablet by mouth 06/18/20 Active 250 mg tablet daily. 17 prednisone (DELTASONE) 10 Take 1 tablet by mouth 06/18/20 Active mg tablet daily. 17 ADVAIR DISKUS 250-50 Take 1 spray by mouth 06/01/20 Active mcg/dose inhalation disk twice daily. 17 levothyroxine (SYNTHROID) Take 1 tablet by mouth 03/30/20 Active 100 mcg tablet daily. 17 nystatin (MYCOSTATIN) Take 100,000 Units by 05/10/20 Active 100,000 units/mL oral mouth as Needed. 17 suspension latanoprost (XALATAN) Apply 1 drop to both eyes 2.5 mL 11 06/25/20 Active 0.005 % ophthalmic at bedtime daily. 17 solution brimonidine (ALPHAGAN P) Apply 1 drop to both eyes 15 mL 11 06/25/20 Active 0.15 % ophthalmic twice daily. 17 solution dorzolamide (TRUSOPT) 2 % Apply 1 drop to both eyes 10 mL 11 06/25/20 Active ophthalmic solution twice daily. 17 brinzolamide/brimonidine( Place 1 drop into or 8 mL 12 08/21/20 Active +) (SIMBRINZA) 1/0.2 % around eye(s) three times 17 ophthalmic suspension daily. Shake well before use. brinzolamide/brimonidine( Place 1 drop into or 8 mL 12 08/21/20 Discontin +) (SIMBRINZA) 1/0.2 % around eye(s) three times 17 17 ued ophthalmic suspension daily. Shake well before use. 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 Eye od Diagnosis: crvo Pre-injection drops: Tetracaine 0.5% drops X 5% Betadine X Speculum used X Tetravisc X Injection Needle: 27 Gauge Needle 30 Gauge Needle Needle supplied with medication X Intravitreal injection: Concentration Volume (in mL) Aflibercept (Eylea) 2 mg / 0.05 mL X Ranibizumab (Lucentis) 0.3 mg / 0.05 mL [...] aortic root (HCC) 08/26/2013 Interstitial lung disease ([facility]) 08/25/2013 Emphysema/COPD ([facility]) 08/19/2013 Ascending aortic aneurysm ([facility]) 08/19/2013 Overview: 08/26/13 [facility] moderate diffuse CAD, moderate AI. 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);Severe stage glaucoma 07/19/2017 Procedure visit Ophthalmology Ash Pressley MD Retinal edema right eye (Primary Dx);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;Central vein occlusion of retina left eye;Epiretinal membrane (ERM) of both eyes;Pseudophakia of both eyes;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 06/25/2017 Office Visit Ophthalmology Queta Sutton MD 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) 06/21/2017 Procedure visit Ophthalmology Ash Pressley MD 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 (Primary Dx);Epiretinal membrane (ERM) of both eyes;Pseudophakia of both eyes from Last 3 Months Family History Medical History Relation Name Comments Cancer Father lung Cataract Mother Diabetes Mother Amblyopia Neg Hx Blindness Neg Hx Coronary Artery Disease Neg Hx Glaucoma Neg Hx Hypertension Neg Hx Macular Degen Neg Hx Neurologic Disorder Neg Hx Retinal Detachment Neg Hx Strabismus Neg Hx Stroke Neg Hx Thyroid Disease Neg Hx Relation Name Status Comments Father Mother Social History Tobacco Use Types Packs/Day Years Used Date Former Smoker Cigarettes 2 45 Quit: 09/24/2005 Smokeless Tobacco: Never Used Alcohol Use Drinks/Week oz/Week Comments No 0 Standard 0.0 drinks or equivalent Sex Assigned at Date Recorded Not on file Last Filed Vital Signs Vital Sign Reading Time Taken Blood Pressure 167/94 11/06/2016 10:57 AM MANAGER CARDIAC Pulse 80 11/06/2016 10:57 AM MANAGER CARDIAC Temperature 36.4 C (97.5 F) 08/26/2013 3:10 PM MANAGER CARDIAC Respiratory Rate 26 08/19/2013 1:22 PM MANAGER CARDIAC Oxygen Saturation 97% 08/26/2013 3:11 PM MANAGER CARDIAC Inhaled Oxygen - - Concentration Weight 54 kg (119 lb) 01/29/2017 10:42 AM CDT Height 175.3 cm (5' 9") 01/29/2017 10:42 AM CDT Body Mass Index 17.57 01/29/2017 10:42 AM CDT Plan of Treatment Health Maintenance Due Date Last Done Comments PHYSICAL (COMPREHENSIVE) 1947 EXAM PERTUSSIS VACCINE 1951 TETANUS VACCINE 1957 SHINGLES VACCINE 2000 PREVNAR/PNEUMOVAX (#1) 2005 INFLUENZA VACCINE 04/24/2017 Results * VISUAL FIELD, EXTEND (08/21/2017 12:33 PM) Specimen Performing Laboratory [facility] [employer] [address] [place] [address], [address] [place] [address] * GONIOSCOPY (06/25/2017 2:33 PM) Specimen Performing Laboratory IN CLINIC Narrative Interpretation / Result: See exam * SCAN COMP OPHTHAL DIAG IMG, OP NERVE (06/25/2017 2:32 PM) Specimen Performing Laboratory [facility] [address] [place] [address] from Last 3 Months
--- OUTSIDE RECORDS SUMMARY | 2017-08-27 11:47 | XMS REPORT | Encounter Summary ---
Author Author [facility] Organization [facility] Address Unknown Phone Unavailable Care Team Providers Care Senior Java Software Developer Name Role Phone PCP Unavailable Reason for Visit * Reason Comments Eye Problem Pt here for glaucoma evaluation, Hx glaucoma suspect OD, Hx CRVO OD. Pt denies any changes since last visit. Medication Update Alphagan TID OU, Trusopt BID OD. FYI OCT(N) ordered today. Encounter Details Date Type Department Care Team Description 06/25/2017 Office Visit [facility] Queta Sutton MD Glaucoma due to Physicians - [address] combination of mechanisms [place] [address] (Primary Dx) [address] [facility] [phone] [address] [place] [address] Social History Tobacco Use Types Packs/Day Years Used Date Former Smoker Cigarettes 2 45 Quit: 09/24/2005 Smokeless Tobacco: Never Used Alcohol Use Drinks/Week oz/Week Comments No 0 Standard 0.0 drinks or equivalent Sex Assigned at Date Recorded Not on file as of this encounter Progress Notes * Queta Sutton MD - 06/25/2017 1:30 PM CDT ASSESSMENT: MMG, OS>OD -iop higher than goal (<15 OD, <12 OS) -on brimonidine OU and trusopt OD -[facility] 2014JUL 03 Gonio 07/10 Hx of CRVO OU -macular edema being treated with eydarryla / Dr. 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
--- OUTSIDE RECORDS SUMMARY | 2017-08-27 11:47 | XMS REPORT | Encounter Summary ---
Author Author [facility] Organization [facility] Address Unknown Phone Unavailable Care Team Providers Care Tip Cementer Name Role Phone PCP Unavailable Reason for Visit * Reason Comments Eye Problem Pt here for VINOD OD today, S/P VINOD OD 06/21/17, Pt states VA stable. No new floaters, no flashes or pain. 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 OCT: OD: non center invovling intraretinal cystic spaces OS: outer retinal atrophy, intraretinal cystic spaces, vmt Assessment and Plan: Monocular patient, f/u for cme OD, known glaucoma, & hx of crvo ou 1- Macular edema OU secondary to crvo OD: improving intraretinal and subretinal cystic spaces. Plan to increase interval duration for Eylea injections OS: atrophic rpe changes with outer retinal atrophy, no center involving, will monitor closely 2- S/p bilateral CRVO S/p prp OS >20y ago. Continue monitoring 3- Mild ERM OU Asymptomatic Monitor closely 4- Large optic nerve cup/disc ratio (on glaucoma drops by ) Continue antiglaucoma gtts follow up next week 5- PCIOL OU in place monitor closely 6- Decreased vision OD despite improved macular edema Plan to have optometry clinic appointment to check for glasses If no improvement with prescription, plan for low vision clinic in this encounter Plan of Treatment Not on fileas of this encounter Visit Diagnoses Diagnosis Retinal edema right eye - Primary Retinal edema 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 Central vein occlusion of retina Central vein occlusion of retina left eye Central vein occlusion of retina Epiretinal membrane (ERM) of both eyes Pseudophakia of both eyes Lens replaced by other means 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
--- OUTSIDE RECORDS SUMMARY | 2017-08-27 11:47 | XMS REPORT | Encounter Summary ---
Author Author [facility] Organization [facility] Address Unknown Phone Unavailable Care Team Providers Care Pie Dough Roller Name Role Phone PCP Unavailable Reason for Visit * Reason Comments Eye Problem Pt here for FUV for GVD OD and IOP check, Hx glaucoma due to combination mechanisms. Medication Update Brimonidine TID OU, Dorzolomide BID OU, Latanoprost QHS OU. Vision Change Pt denies changes in VA since last visit. Encounter Details Date Type Department Care Team Description 08/21/2017 Office Visit [facility] Queta Sutton MD Glaucoma due to Physicians - [address] combination of [place] [address] (Primary Dx);Severe stage [address] [place] [phone] glaucoma [address] [place] [address] Social History Tobacco Use Types Packs/Day Years Used Date Former Smoker Cigarettes 2 45 Quit: 09/24/2005 Smokeless Tobacco: Never Used Alcohol Use Drinks/Week oz/Week Comments No 0 Standard 0.0 drinks or equivalent Sex Assigned at Date Recorded Not on file as of this encounter Progress Notes * Queta Sutton MD - 08/21/2017 10:00 AM PIPE FITTER SOFT COPPER ASSESSMENT: MMG, OS>OD -iop higher than goal (<15 OD, <12 OS) -on brimonidine OU and trusopt OD -[facility] 2014 OCT 07/10 Gonio 07/10 Hx of CRVO OU -macular edema being treated with seb / Dr. 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
--- OUTSIDE RECORDS SUMMARY | 2017-08-27 11:47 | XMS REPORT | Encounter Summary ---
Author Author [facility] Organization [facility] Address Unknown Phone Unavailable Care Team Providers Care Ion Implant Machine Operator Name Role Phone PCP Unavailable Reason for Visit * Reason Comments Eye Problem 5 wk FUV Injection OD, S/P VINOD OD 05/15/17, Pt states VA seems to be the same. Has floaters OD without changes. No flashes. Did have some pain when he got the injection last time and would like to try another way to numb the eye. Medications Only Eye Vitamin PO, Purple Top BID OD, [place] Top TID OD Encounter Details Date Type Department Care Team Description 06/21/2017 Procedure visit [facility] Ash Pressley MD Central retinal vein Physicians - [address] occlusion [place] [address] edema of both eyes [address] [place] [phone] (Primary Dx);Epiretinal 100 membrane (ERM) of both [place] eyes;Pseudophakia of both [address] eyes [phone] Social History Tobacco Use Types Packs/Day Years Used Date Former Smoker Cigarettes 2 45 Quit: 09/24/2005 Smokeless Tobacco: Never Used Alcohol Use Drinks/Week oz/Week Comments No 0 Standard 0.0 drinks or equivalent Sex Assigned at Date Recorded Not on file as of this encounter Progress Notes * Ash Pressley MD - 06/21/2017 1:00 PM CDT Formatting of this note may be different from the original. There is no height or weight on file to calculate BMI. OCT: OD: resolved subfoveal intraretinal and subretinal fluid. Residual intrearetinal cystic spaces inferior to fovea. Eerm OS: non center involving cystic spaces, erm Optos: OD: s/p CRVO, with atherosclerotic vessel OS: s/p prp and focal laser I discussed diagnosis and plan for intravitreal [...] OD x OS Posterior Sub-Tenon Subconj Intravitreous Pre-injection drops: Tetracaine 0.5% drops x 5% [...] mg / 100 microLiters ILuvien Lot # Expiration date: Injection Needle: 27 Gauge Needle 30 Gauge Needle x Needle supplied with medication Post-operative examination: Central retinal artery perfused by vision check X Intraocular pressure checked by tonopen and found to be ___ mmHg Intraocular pressure checked by applanation and found to be ___ mmHg I personally performed the Injection Assessment and Plan: 1- Macular edema OU secondary to crvo OD: improving intraretinal and subretinal cystic spaces. Plan to continue Eylea monthly injections OS: atrophic rpe changes with outer retinal atrophy on OCT, no center involving , will monitor closely 2- S/p bilateral CRVO S/p prp OS >20y ago. Will monitor closely 3- Mild ERM OU Asymptomatic Monitor closely 4- PCIOL OU in place Will mopnitor closely 5- Large optic nerve cup/disc ratio (on glaucoma drops by ) Continue antiglaucoma gtts The patient has a follow up appointment with next week 6- Decreased vision OD despite improved macular edema Possible etiologies are glaucomatous nerve damage, refraction, or both The patient has a follow up appointment with next week Plan to have optometry clinic appointment to check for glasses If no improvement with new prescription, plan for low vision clinic in this encounter Plan of Treatment Not on fileas of this encounter Visit Diagnoses Diagnosis 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 - Primary Epiretinal membrane (ERM) of both eyes Pseudophakia of both eyes Lens replaced by other means in this encounter Administered Medications Medication Order MAR Action Action Date Dose Rate Site aflibercept(+) (EYLEA) intravitreal Given 06/21/2017 2 mg Eye, Right injection 2 mg 08:17 CDT 2 mg, INTRAVITREAL, ONCE, 1 dose, Samia 06/21/17 at 1545 in this encounter
--- OUTSIDE RECORDS SUMMARY | 2017-08-27 11:54 | XMS REPORT | Continuity of Care Document ---
Author Author [facility] Organization [facility] Address Unknown Phone Unavailable Allergies Active Description Code Type Severity Reaction Onset Reported/Identified Relationship to Patient Clinical Status Yes No Known Drug Allergies [id number] Drug Allergy Unknown N/ A 05/21/2007 Medications Problems Date Dx Coded Attending Type Code Diagnosis Diagnosed By 11/29/2010 Ot V10.02 HX-ORAL/PHARYNX MALG NEC 11/29/2010 Ot V10.46 HX-PROSTATIC MALIGNANCY 11/29/2010 Ot V58.66 LONG-TERM (CURRENT) USE OF ASPIRIN 11/29/2010 Ot V58.69 OTH MED,LT,CURRENT USE 11/29/2010 Ot V67.1 RADIOTHERAPY FOLLOW-UP 11/29/2010 Ot V67.2 CHEMOTHERAPY FOLLOW-UP 11/30/2010 Ot 530.3 ESOPHAGEAL STRICTURE 11/30/2010 Ot V10.02 HX-ORAL/PHARYNX MALG NEC 11/30/2010 Ot V15.3 HX OF IRRADIATION 11/30/2010 Ot V87.41 PERSONAL HISTORY OF ANTINEOPLASTIC CHEMO 04/18/2011 Ot 780.2 SYNCOPE AND COLLAPSE 04/18/2011 Ot 780.4 DIZZINESS AND GIDDINESS 04/18/2011 Ot 780.79 OTH MALAISE FATIGUE 04/18/2011 Ot 791.9 ABN URINE FINDINGS NEC 04/19/2011 Ot 401.9 HYPERTENSION NOS 04/19/2011 Ot 780.4 DIZZINESS AND GIDDINESS 04/19/2011 Ot 824.2 FX LATERAL MALLEOLUS-CL 04/19/2011 Ot 824.8 FX ANKLE NOS-CLOSED 04/19/2011 Ot 959.7 LOWER LEG INJURY NOS 04/19/2011 Ot E000.8 OTHER EXTERNAL CAUSE STATUS 04/19/2011 Ot E849.0 ACCIDENT IN HOME 04/19/2011 Ot E888.9 FALL NOS 05/13/2011 Ot 112.0 THRUSH 05/13/2011 Ot 272.4 HYPERLIPIDEMIA NEC/NOS 05/13/2011 Ot 276.1 HYPOSMOLALITY 05/13/2011 Ot 276.8 HYPOPOTASSEMIA 05/13/2011 Ot 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 05/13/2011 Ot 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 05/13/2011 Ot 458.9 HYPOTENSION NOS 05/13/2011 Ot 486 PNEUMONIA, ORGANISM NOS 05/13/2011 Ot 530.81 ESOPHAGEAL REFLUX 05/13/2011 Ot V10.46 HX-PROSTATIC MALIGNANCY 05/13/2011 Ot V10.51 HX OF BLADDER MALIGNANCY 05/13/2011 Ot V54.89 OTHER ORTHOPEDIC AFTERCARE 08/06/2012 Ot 845.00 SPRAIN OF ANKLE NOS 08/06/2012 Ot 959.01 HEAD INJURY, NOS 08/06/2012 Ot 959.7 LOWER LEG INJURY NOS 08/06/2012 Ot E000.8 OTHER EXTERNAL CAUSE STATUS 08/06/2012 Ot E849.0 ACCIDENT IN HOME 08/06/2012 Ot E888.1 FALL STRIKING OBJECT NEC 08/06/2012 Ot E927.0 OVEREXERTION FROM SUDDEN STRENUOUS MOVEM 01/06/2013 Ot 562.10 DIVERTICULOSIS COLON (W/O MENT OF HEMORR 01/06/2013 Ot V76.51 SCREEN MAL NEOP-COLON 04/28/2013 JOSE SKAGGS MD Ot 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 04/28/2013 JOSE SKAGGS MD Ot 276.1 HYPOSMOLALITY 04/28/2013 JOSE SKAGGS MD Ot 285.9 ANEMIA NOS 04/28/2013 JOSE SKAGGS MD Ot 401.9 HYPERTENSION NOS 04/28/2013 JOSE SKAGGS MD Ot 414.01 CORONARY ATHEROSCLEROSIS OF [place] CORON 04/28/2013 JOSE SKAGGS MD Ot 433.10 CAROTID ARTERY OCCLUSION W O CEREBRAL IN 04/28/2013 JOSE SKAGGS MD Ot 458.9 HYPOTENSION NOS 04/28/2013 JOSE SKAGGS MD Ot 486 PNEUMONIA, ORGANISM NOS 04/28/2013 JOSE SKAGGS MD Ot 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 04/28/2013 JOSE SKAGGS MD Ot 787.91 DIARRHEA 04/28/2013 JOSE SKAGGS MD Ot 799.02 HYPOXEMIA 10/01/2013 JOSE SKAGGS MD Ot 244.9 HYPOTHYROIDISM NOS 10/01/2013 JOSE SKAGGS MD Ot 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 10/01/2013 JOSE SKAGGS MD Ot 272.0 PURE HYPERCHOLESTEROLEM 10/01/2013 JOSE SKAGGS MD Ot 276.51 DEHYDRATION 10/01/2013 JOSE SKAGGS MD Ot 276.69 OTHER FLUID OVERLOAD 10/01/2013 JOSE SKAGGS MD Ot 276.9 ELECTROLYT/FLUID DIS NEC 10/01/2013 JOSE SKAGGS MD Ot 285.9 ANEMIA NOS 10/01/2013 JOSE SKAGGS MD Ot 300.00 ANXIETY STATE NOS 10/01/2013 JOSE SKAGGS MD Ot 311 DEPRESSIVE DISORDER NEC 10/01/2013 JOSE SKAGGS MD Ot 403.90 HYPTNSV CHR KID DIS, UNSPEC, W CHR KD ST 10/01/2013 JOSE SKAGGS MD Ot 414.01 CORONARY ATHEROSCLEROSIS OF [place] CORON 10/01/2013 JOSE SKAGGS MD Ot 424.1 AORTIC VALVE DISORDER 10/01/2013 JOSE SKAGGS MD Ot 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 10/01/2013 JOSE SKAGGS MD Ot 482.42 METHICILLIN RESISTANT PNEUMONIA DUE TO S 10/01/2013 JOSE SKAGGS MD Ot 496 CHR AIRWAY OBSTRUCT NEC 10/01/2013 JOSE SKGAGS MD Ot 518.83 CHRONIC RESPIRATORY FAILURE 10/01/2013 JOSE SKAGGS MD Ot 585.9 CHRONIC KIDNEY DISEASE, UNSPECIFIED 10/01/2013 JOSE SKAGGS MD Ot 593.9 RENAL URETERAL DIS NOS 10/01/2013 JOSE SKAGGS MD Ot V10.02 HX-ORAL/PHARYNX MALG NEC 10/01/2013 JOSE SKAGGS MD Ot V10.46 HX-PROSTATIC MALIGNANCY 10/01/2013 JOSE SKAGGS MD Ot V15.3 HX OF IRRADIATION 10/01/2013 JOSE SKAGGS MD Ot V15.82 HISTORY OF TOBACCO USE 10/01/2013 JOSE SKAGGS MD Ot V87.41 PERSONAL HISTORY OF ANTINEOPLASTIC CHEMO 05/04/2014 JOSE SKAGGS MD Ot 041.11 METHICILLIN SUSCEPTIBLE STAPHYLOCOCCUS A 05/04/2014 JOSE SKAGGS MD Ot 112.4 CANDIDIASIS OF LUNG 05/04/2014 JOSE SKAGGS MD Ot 238.71 ESSENTIAL THROMBOCYTHEMIA 05/04/2014 JOSE SKAGGS MD Ot 244.9 HYPOTHYROIDISM NOS 05/04/2014 JOSE SKAGGS MD Ot 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 05/04/2014 JOSE SKAGGS MD Ot 272.0 PURE HYPERCHOLESTEROLEM 05/04/2014 JOSE SKAGGS MD Ot 276.8 HYPOPOTASSEMIA 05/04/2014 JOSE SKAGGS MD Ot 285.9 ANEMIA NOS 05/04/2014 JOSE SKAGGS MD Ot 300.00 ANXIETY STATE NOS 05/04/2014 JOSE SKAGGS MD Ot 311 DEPRESSIVE DISORDER NEC 05/04/2014 JOSE SKAGGS MD Ot 389.9 HEARING LOSS NOS 05/04/2014 JOSE SKAGGS MD Ot 401.9 HYPERTENSION NOS 05/04/2014 JOSE SKAGGS MD Ot 414.01 CORONARY ATHEROSCLEROSIS OF [place] CORON 05/04/2014 JOSE SKAGGS MD Ot 415.19 OTH PULMON EMBOLISM/INFARCT 05/04/2014 JOSE SKAGGS MD Ot 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 05/04/2014 JOSE SKAGGS MD Ot 486 PNEUMONIA, ORGANISM NOS 05/04/2014 JOSE SKAGGS MD Ot 496 CHR AIRWAY OBSTRUCT NEC 05/04/2014 JOSE SKAGGS MD Ot 530.81 ESOPHAGEAL REFLUX 05/04/2014 JOSE SKAGGS MD Ot 716.90 ARTHROPATHY NOS-UNSPEC 05/04/2014 JOSE SKAGGS MD Ot V10.02 HX-ORAL/PHARYNX MALG NEC 05/04/2014 JOSE SKAGGS MD Ot V10.46 HX-PROSTATIC MALIGNANCY 07/01/2014 GAURAV HERRERA DO Ot 244.9 HYPOTHYROIDISM NOS 07/01/2014 GAURAV HERRERA DO Ot 785.6 ENLARGEMENT LYMPH NODES 07/01/2014 GAURAV HERRERA DO Ot 793.11 SOLITARY PULMONARY NODULE 07/01/2014 GAURAV HERRERA DO Ot V10.02 HX-ORAL/PHARYNX MALG NEC 07/01/2014 GAURAV HERRERA DO Ot V15.82 HISTORY OF TOBACCO USE 07/16/2014 JOSE SKAGGS MD Ot 162.9 MAL RODRIGUEZ BRONCH/LUNG NOS 07/16/2014 JOSE SKAGGS MD Ot 244.8 ACQUIRED HYPOTHYROID NEC 07/16/2014 JOSE SKAGGS MD Ot 276.1 HYPOSMOLALITY 07/16/2014 JOSE SKAGGS MD Ot 285.9 ANEMIA NOS 07/16/2014 JOSE SKAGGS MD Ot 300.00 ANXIETY STATE NOS 07/16/2014 JOSE SKAGGS MD Ot 389.9 HEARING LOSS NOS 07/16/2014 JOSE SKAGGS MD Ot 401.9 HYPERTENSION NOS 07/16/2014 JOSE SKAGGS MD Ot 416.2 CHRONIC PULMONARY EMBOLISM 07/16/2014 JOSE SKAGGS MD Ot 496 CHR AIRWAY OBSTRUCT NEC 07/16/2014 JOSE SKAGGS MD Ot 716.90 ARTHROPATHY NOS-UNSPEC 07/16/2014 JOSE SKAGGS MD Ot 781.94 FACIAL WEAKNESS 07/16/2014 JOSE SKAGGS MD Ot 784.42 DYSPHONIA 07/16/2014 JOSE SKAGGS MD Ot 802.4 FX MALAR/MAXILLARY-CLOSE 07/16/2014 JOSE SKAGGS MD Ot 910.0 ABRASION HEAD 07/16/2014 JOSE SKAGGS MD Ot E849.7 ACCID IN RESIDENT INSTIT 07/16/2014 JOSE SKAGGS MD Ot E879.8 ABN REACT-PROCEDURE NEC 07/16/2014 JOSE SKAGGS MD Ot E888.1 FALL STRIKING OBJECT NEC 07/16/2014 JOSE SKAGGS MD Ot V10.02 HX-ORAL/PHARYNX MALG NEC 07/16/2014 JOSE SKAGGS MD Ot V10.46 HX-PROSTATIC MALIGNANCY 07/16/2014 JOSE SKAGGS MD Ot V15.82 HISTORY OF TOBACCO USE 07/16/2014 JOSE SKAGGS MD Ot V58.61 ANTICOAGULANTS,LT,CURRENT USE 08/16/2014 JOSE SKAGGS MD Ot 285.9 ANEMIA NOS 08/19/2014 VENECIA CALVO N Ot 162.9 09/01/2014 JACK INGRAM LAUNDRY MANAGER Ot 162.9 09/10/2014 GAURAV HERRERA DO Ot 162.9 09/12/2014 VIKI SKAGGS MD Ot 784.2 SWELLING IN HEAD NECK 09/12/2014 VIKI SKAGGS MD Ot V58.61 ANTICOAGULANTS,LT,CURRENT USE 09/29/2014 LUBNA, BOBAN N Ot 162.9 10/27/2014 LUBNA, BOBAN N Ot 162.9 MAL RODRIGUEZ BRONCH/LUNG NOS 11/06/2014 LUBNA, BOBAN N Ot 162.9 11/06/2014 LUBNA, BOBAN N Ot 162.9 11/12/2014 LUBNA, BOBAN N Ot 162.9 11/13/2014 LUBNA BOBAN N Ot 162.9 11/20/2014 Ot 492.8 11/20/2014 Ot 515 12/25/2014 LUBNA, BOBAN N Ot 162.9 02/10/2015 LUBNA, BOBAN N Ot 162.9 MAL RODRIGUEZ BRONCH/LUNG NOS 02/10/2015 LUBNA, BOBAN N Ot 285.9 ANEMIA NOS 02/10/2015 LUBNA, BOBAN N Ot V58.69 OTH MED,LT,CURRENT USE 02/11/2015 LUBNA, BOBAN N Ot 162.9 02/12/2015 LUBNA, BOBAN N Ot 162.9 02/17/2015 OLI RDZ, LORI Jordan Ot 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 02/17/2015 O[address] RDZ, LORI Jordan Ot 702.0 ACTINIC KERATOSIS 02/17/[address]Z, LORI Jordan Ot V74.8 SCREEN-BACTERIAL DIS NEC 03/29/2015 LUBNA, BOBAN N Ot 162.9 03/29/2015 LUBNA, BOBAN N Ot 285.9 03/29/2015 LUBNA, BOBAN N Ot V58.69 04/02/2015 LUBNA, BOBAN N Ot 162.9 04/02/2015 LUBNA, BOBAN N Ot 285.9 04/02/2015 LUBNA, BOBAN N Ot V58.69 05/12/2015 LUBNA, BOBAN N Ot 162.9 MAL RODRIGUEZ BRONCH/LUNG NOS 05/12/2015 LUBNA, BOBAN N Ot 285.9 ANEMIA NOS 05/12/2015 LUBNA, BOBAN N Ot V58.69 OTH MED,LT,CURRENT USE 05/14/2015 LUBNA, BOBAN N Ot 162.9 05/14/2015 LUBNA, BOBAN N Ot 285.9 05/14/2015 LUBNA, BOBAN N Ot V58.69 05/18/2015 JACK INGRAM LAUNDRY MANAGER Ot 162.5 05/18/2015 JACK INGRAM LAUNDRY MANAGER Ot 170.1 05/18/2015 JACK INGRAM LAUNDRY MANAGER Ot 196.0 05/18/2015 JACK INGRAM LAUNDRY MANAGER Ot 244.1 05/18/2015 JACK INGRAM LAUNDRY MANAGER Ot 280.9 05/18/2015 JACK INGRAM LAUNDRY MANAGER Ot 441.2 05/18/2015 JACK INGRAM LAUNDRY MANAGER Ot V10.46 05/18/2015 JACK INGRAM LAUNDRY MANAGER Ot V15.3 05/18/2015 INGRAM, HILAH S LAUNDRY MANAGER Ot V58.69 05/18/2015 VENECIA CALVO N Ot 162.9 05/18/2015 VENECIA CALVO N Ot 285.9 05/18/2015 VENECIA CALVO N Ot V58.69 06/02/2015 INGRAMJACK Pandey LAUNDRY MANAGER Ot 162.5 06/02/2015 JACK INGRAM LAUNDRY MANAGER Ot 170.1 06/02/2015 INGRAMJACK Pandey S LAUNDRY MANAGER Ot 196.0 06/02/2015 JACK INGRAM S LAUNDRY MANAGER Ot 244.1 06/02/2015 INGRAMJACK Pandey S LAUNDRY MANAGER Ot 280.9 06/02/2015 INGRAMJACK Pandey S LAUNDRY MANAGER Ot 441.2 06/02/2015 JACK INGRAM S LAUNDRY MANAGER Ot V10.46 06/02/2015 JACK INGRAM LAUNDRY MANAGER Ot V15.3 06/02/2015 JACK INGRAM LAUNDRY MANAGER Ot V58.69 06/23/2015 VENECIA CALVO N Ot 162.9 MAL RODRIGUEZ BRONCH/LUNG NOS 06/23/2015 VENECIA CALVO N Ot 285.9 ANEMIA NOS 06/23/2015 VENECIA CALVO N Ot V58.69 OTH MED,LT,CURRENT USE 09/21/2015 VENECIA CALVO N Ot C06.2 09/21/2015 VENECIA CALVO N Ot D50.9 09/21/2015 VENECIA CALVO N Ot E03.9 10/22/[address]Z, LORI Jordan Ot C44.42 SQUAMOUS CELL CARCINOMA OF SKIN OF [place]AL[place] 10/22/[address]Z, LORI Jordan Ot L57.0 ACTINIC KERATOSIS 10/27/2015 VENECIA CALVO N Ot 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 10/27/2015 VENECIA CALVO N Ot D50.9 IRON DEFICIENCY ANEMIA, UNSPECIFIED 10/27/2015 VENECIA CALVO N Ot E03.9 HYPOTHYROIDISM, UNSPECIFIED 12/17/[address], JOSE Granado Ot I71.2 01/11/[address]Z, JOSE Granado Ot 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, 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 01/22/2016 Ot 787.20 DYSPHAGIA, UNSPECIFIED 01/22/2016 Ot V10.02 HX-ORAL/PHARYNX MALG NEC 01/22/2016 Ot V10.46 HX-PROSTATIC MALIGNANCY 01/22/2016 Ot V58.66 LONG-TERM (CURRENT) USE OF ASPIRIN 01/22/2016 Ot V58.69 OTH MED,LT,CURRENT USE 01/22/2016 Ot V67.1 RADIOTHERAPY FOLLOW-UP 01/22/2016 Ot V67.2 CHEMOTHERAPY FOLLOW-UP 01/22/2016 Ot 272.4 HYPERLIPIDEMIA NEC/NOS 01/22/2016 Ot 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 01/22/2016 Ot 397.0 TRICUSPID VALVE DISEASE 01/22/2016 Ot 401.9 HYPERTENSION NOS 01/22/2016 Ot 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 01/22/2016 Ot 492.8 EMPHYSEMA NEC 01/22/2016 Ot 793.1 NOSP (ABN) FINDINGS ON RADIOLOGICAL OT 01/22/2016 Ot 276.1 HYPOSMOLALITY 01/22/2016 Ot 276.8 HYPOPOTASSEMIA 01/22/2016 Ot 486 PNEUMONIA, ORGANISM NOS 01/22/2016 Ot 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 01/22/2016 Ot 244.9 HYPOTHYROIDISM NOS 01/22/2016 Ot 585.3 CHRONIC KIDNEY DISEASE, STAGE III (MODER 01/22/2016 Ot V10.02 HX-ORAL/PHARYNX MALG NEC 01/22/2016 Ot V10.46 HX-PROSTATIC MALIGNANCY 01/22/2016 Ot V12.61 PERSONAL HISTORY, PNEUMONIA (RECURRENT) 01/22/2016 Ot V58.66 LONG-TERM (CURRENT) USE OF ASPIRIN 01/22/2016 Ot V58.69 OTH MED,LT,CURRENT USE 01/22/2016 Ot V67.1 RADIOTHERAPY FOLLOW-UP 01/22/2016 Ot V67.2 CHEMOTHERAPY FOLLOW-UP 01/22/2016 Ot 227.0 BENIGN NEOPLASM ADRENAL 01/22/2016 Ot 441.4 ABDOM AORTIC ANEURYSM 01/22/2016 Ot 593.2 CYST OF KIDNEY, ACQUIRED 01/22/2016 Ot 786.07 WHEEZING 01/22/2016 Ot 786.9 RESP SYS/CHEST SYMP NEC 01/22/2016 Ot 793.19 OTHER NONSPECIFIC ABNORMAL FINDING OF RUBY 01/22/2016 Ot 786.07 WHEEZING 01/22/2016 Ot V15.82 HISTORY OF TOBACCO USE 01/22/2016 Ot 272.4 HYPERLIPIDEMIA NEC/NOS 01/22/2016 Ot 401.9 HYPERTENSION NOS 01/22/2016 Ot 414.00 CORON ATHEROSCLER NOS TYPE VESSEL, NATIV 01/22/2016 Ot 433.30 MULT BILTRAL ARTERY OCCLUSION WO CEREBRA 01/22/2016 Ot 440.0 AORTIC ATHEROSCLEROSIS 01/22/2016 Ot 441.4 ABDOM AORTIC ANEURYSM 01/22/2016 Ot 492.8 EMPHYSEMA NEC 01/22/2016 Ot 780.2 SYNCOPE AND COLLAPSE 01/22/2016 Ot 244.9 HYPOTHYROIDISM NOS 01/22/2016 Ot 585.3 CHRONIC KIDNEY DISEASE, STAGE III (MODER 01/22/2016 Ot V10.02 HX-ORAL/PHARYNX MALG NEC 01/22/2016 Ot V10.46 HX-PROSTATIC MALIGNANCY 01/22/2016 Ot V12.61 PERSONAL HISTORY, PNEUMONIA (RECURRENT) 01/22/2016 Ot V58.66 LONG-TERM (CURRENT) USE OF ASPIRIN 01/22/2016 Ot V58.69 OTH MED,LT,CURRENT USE 01/22/2016 Ot V67.1 RADIOTHERAPY FOLLOW-UP 01/22/2016 Ot V67.2 CHEMOTHERAPY FOLLOW-UP 01/22/2016 Ot V72.84 EXAM PRE-OPERATIVE NOS 01/22/2016 Ot V72.84 EXAM PRE-OPERATIVE NOS 01/22/2016 Ot 185 MALIGN NEOPL PROSTATE 01/22/[address], JOSE Granado Ot 486 PNEUMONIA, ORGANISM NOS 01/22/2016 SUNDAR COULTER Ot 272.4 HYPERLIPIDEMIA NEC/NOS 01/22/2016 SUNDAR COULTER Ot 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 01/22/2016 SUNDAR COULTER Ot 397.0 TRICUSPID VALVE DISEASE 01/22/2016 SUNDAR COULTER Ot 401.9 HYPERTENSION NOS 01/22/2016 SUNDAR COULTER Ot 414.00 CORON ATHEROSCLER NOS TYPE VESSEL, NATIV 01/22/2016 SUNDAR COULTER Ot 441.7 THORACOABDOMINAL ANEURYSM WO RUPTURE 01/22/2016 SUNDAR COULTER Ot 793.3 NOSP (ABN) FINDINGS ON RADIOLOGICAL OT 01/22/2016 VENECIA CALVO Ot 244.9 HYPOTHYROIDISM NOS 01/22/2016 VENECIA CALVO Ot 285.9 ANEMIA NOS 01/22/2016 VENECIA CALVO Ot 585.3 CHRONIC KIDNEY DISEASE, STAGE III (MODER 01/22/2016 LUBNAVENECIA SMYTH Lacey Ot V10.02 HX-ORAL/PHARYNX MALG NEC 01/22/2016 LUBNA, VENECIA Rahman Ot V10.46 HX-PROSTATIC MALIGNANCY 01/22/2016 LUBNA, VENECIA Rahman Ot V12.61 PERSONAL HISTORY, PNEUMONIA (RECURRENT) 01/22/2016 LUBNA VENECIA Rahman Ot V58.66 LONG-TERM (CURRENT) USE OF ASPIRIN 01/22/2016 LUBNA VENECIA Rahman Ot V58.69 OTH MED,LT,CURRENT USE 01/22/2016 LUBNA VENECIA Rahman Ot V67.1 RADIOTHERAPY FOLLOW-UP 01/22/2016 VENECIA CALVO Ot V67.2 CHEMOTHERAPY FOLLOW-UP 01/22/2016 JOSE SKAGGS MD Ot 786.7 ABNORMAL CHEST SOUNDS 01/22/2016 JOSE SKAGGS MD Ot 793.19 OTHER NONSPECIFIC ABNORMAL FINDING OF RUBY 01/22/2016 JOSE SKAGGS MD Ot 486 PNEUMONIA, ORGANISM NOS 01/22/2016 JOSE SKAGGS MD Ot 496 CHR AIRWAY OBSTRUCT NEC 01/22/2016 JOSE SKAGGS MD Ot 518.0 PULMONARY COLLAPSE 01/22/2016 JOSE SKAGGS MD Ot 784.2 SWELLING IN HEAD NECK 01/22/2016 JOSE SKAGGS MD Ot 786.2 COUGH 01/22/2016 JOSE SKAGGS MD Ot 793.19 OTHER NONSPECIFIC ABNORMAL FINDING OF RUBY 01/22/2016 OJSE SKAGGS MD Ot V10.89 HX OF MALIGNANCY NEC 01/22/2016 GAURAV HERRERA DO Ot 785.6 ENLARGEMENT LYMPH NODES 01/22/2016 GAURAV HERRERA DO Ot 793.11 SOLITARY PULMONARY NODULE 01/22/2016 GAURAV HERRERA DO Ot 244.9 HYPOTHYROIDISM NOS 01/22/2016 GAURAV HERRERA DO Ot 585.3 CHRONIC KIDNEY DISEASE, STAGE III (MODER 01/22/2016 GAURAV HERRERA DO Ot 786.09 RESPIRATORY ABNORM NEC 01/22/2016 GAURAV HERRERA DO Ot V64.3 NO PROC FOR REASONS NEC 01/22/2016 GAURAV HERRERA DO Ot V72.84 EXAM PRE-OPERATIVE NOS 01/22/2016 GAURAV HERRERA DO Ot 162.9 MAL RODRIGUEZ BRONCH/LUNG NOS 01/22/2016 GAURAV HERRERA DO Ot 162.9 MAL RODRIGUEZ BRONCH/LUNG NOS 01/22/2016 VENECIA CALVO Ot 162.9 MAL RODRIGUEZ BRONCH/LUNG NOS 01/22/2016 JACK INGRAM LAUNDRY MANAGER Ot 162.9 MAL RODRIGUEZ BRONCH/LUNG NOS 01/22/[address], JOSE Granado Ot 285.9 ANEMIA NOS 01/22/2016 Ot 492.8 EMPHYSEMA NEC 01/22/2016 Ot 515 POSTINFLAM PULM FIBROSIS 01/22/2016 LORI BAIRD MD Ot 709.9 SKIN DISORDER NOS 01/22/2016 LORI BAIRD MD Ot V72.84 EXAM PRE-OPERATIVE NOS 01/22/2016 JACK INGRAM S LAUNDRY MANAGER Ot 162.5 MAL RODRIGUEZ LOWER LOBE LUNG 01/22/2016 JACK INGRAM S LAUNDRY MANAGER Ot 170.1 MALIGNANT RODRIGUEZ MANDIBLE 01/22/2016 JACK INGRAM S LAUNDRY MANAGER Ot 196.0 MAL RODRIGUEZ LYMPH-HEAD/NECK 01/22/2016 JACK INGRAM S LAUNDRY MANAGER Ot 244.1 POSTABLAT HYPOTHYR NEC 01/22/2016 JACK INGRAM S LAUNDRY MANAGER Ot 280.9 IRON DEFIC ANEMIA NOS 01/22/2016 JACK INGRAM S LAUNDRY MANAGER Ot 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 01/22/2016 JACK INGRAM S LAUNDRY MANAGER Ot V10.46 HX-PROSTATIC MALIGNANCY 01/22/2016 JACK INGRAM S LAUNDRY MANAGER Ot V15.3 HX OF IRRADIATION 01/22/2016 JACK INGRAM S LAUNDRY MANAGER Ot V58.69 OTH MED,LT,CURRENT USE 01/22/2016 LORI BAIRD MD Ot L98.9 DISORDER OF THE SKIN AND SUBCUTANEOUS TI 01/22/2016 LORI BAIRD MD Ot Z01.818 ENCOUNTER FOR OTHER PREPROCEDURAL EXAMIN 01/22/2016 LORI BAIRD MD Ot Z11.2 ENCOUNTER FOR SCREENING FOR OTHER BACTER 01/22/2016 VENECIA CALVO Ot 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 01/22/2016 VENECIA CALVO Ot D50.9 IRON DEFICIENCY ANEMIA, UNSPECIFIED 01/22/2016 VENECIA CALVO Ot E03.9 HYPOTHYROIDISM, UNSPECIFIED 01/22/[address], JOSE Granado Ot 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, 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 01/22/2016 BRITNI HARVEY MD, Ot S91.115A LAC W/O FB OF LEFT LESSER TOE(S) W/O DAM 01/22/2016 BRITNI HARVEY MD Ot W27.2XXA CONTACT WITH SCISSORS, INITIAL ENCOUNTER 01/22/2016 BRITNI HARVEY MD Ot Y92.[address] IN [facility] ( [facility]IVATE 01/22/2016 BRITNI HARVEY MD Ot Y99.8 OTHER EXTERNAL CAUSE STATUS 01/22/2016 BRITNI HARVEY MD Ot Z79.01 [employer]PER[employer] (CURRENT) USE OF ANTICOAGULANT 01/22/2016 BRITNI HARVEY MD, Ot Z87.891 PERSONAL HISTORY OF NICOTINE DEPENDENCE 01/24/2016 BRITNI HARVEY MD, Ot S91.115A LAC W/O FB OF LEFT LESSER TOE(S) W/O DAM 01/24/2016 BRITNI HARVEY MD Ot W27.2XXA CONTACT WITH SCISSORS, INITIAL ENCOUNTER 01/24/2016 BRITNI HARVEY MD Ot Y92.[address] IN [facility] NON[facility] ( PRIVATE 01/24/2016 BRITNI HARVEY MD Ot Y99.8 OTHER EXTERNAL CAUSE STATUS 01/24/2016 BRITNI HARVEY MD Ot Z79.01 USP (CURRENT) USE OF ANTICOAGULANT 01/24/2016 BRITNI HARVEY MD Ot Z87.891 PERSONAL HISTORY OF NICOTINE DEPENDENCE 01/28/2016 BRITNI HARVEY MD, Ot S91.115A LAC W/O FB OF LEFT LESSER TOE(S) W/O DAM 01/28/2016 BRITNI HARVEY MD Ot W27.2XXA CONTACT WITH SCISSORS, INITIAL ENCOUNTER 01/28/2016 BRITNI HARVEY MD, Ot Y92.[address] [facility] ( [facility] 01/28/2016 BRITNI HARVEY MD Ot Y99.8 OTHER EXTERNAL CAUSE STATUS 01/28/2016 BRITNI HARVEY MD Ot Z79.01 SUPER[employer] (CURRENT) USE OF ANTICOAGULANT 01/28/2016 BRITNI HARVEY MD Ot Z87.891 PERSONAL HISTORY OF NICOTINE DEPENDENCE 02/01/2016 VENECIA CALVO Ot 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 02/01/2016 VENECIA CALVO Lacey Ot D50.9 IRON DEFICIENCY ANEMIA, UNSPECIFIED 02/01/2016 VENECIA CALVO Lacey Ot E03.9 HYPOTHYROIDISM, UNSPECIFIED 02/03/2016 JACK INGRAM Ot 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 02/03/2016 JACK INGRAMP Ot C61 MALIGNANT NEOPLASM OF PROSTATE 02/03/2016 JACK INGRAM Ot 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 CHRONIC KIDNEY DISEASE 02/03/2016 JACK INGRAM Ot E03.9 HYPOTHYROIDISM, UNSPECIFIED 02/03/2016 NATALY JACK Dannie EUCEDAP Ot N18.3 CHRONIC KIDNEY DISEASE, STAGE 3 ( MODERAT 02/03/2016 NATALY JACK Dannie EUCEDAP Ot Z79.899 OTHER USP (CURRENT) DRUG THERAPY 02/28/2016 Ot 787.20 DYSPHAGIA, UNSPECIFIED 02/28/2016 Ot V10.02 HX-ORAL/PHARYNX MALG NEC 02/28/2016 Ot V10.46 HX-PROSTATIC MALIGNANCY 02/28/2016 Ot V58.66 LONG-TERM (CURRENT) USE OF ASPIRIN 02/28/2016 Ot V58.69 OTH MED,LT,CURRENT USE 02/28/2016 Ot V67.1 RADIOTHERAPY FOLLOW-UP 02/28/2016 Ot V67.2 CHEMOTHERAPY FOLLOW-UP 02/28/2016 Ot 272.4 HYPERLIPIDEMIA NEC/NOS 02/28/2016 Ot 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 02/28/2016 Ot 397.0 TRICUSPID VALVE DISEASE 02/28/2016 Ot 401.9 HYPERTENSION NOS 02/28/2016 Ot 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 02/28/2016 Ot 492.8 EMPHYSEMA NEC 02/28/2016 Ot 793.1 NOSP (ABN) FINDINGS ON RADIOLOGICAL OT 02/28/2016 Ot 276.1 HYPOSMOLALITY 02/28/2016 Ot 276.8 HYPOPOTASSEMIA 02/28/2016 Ot 486 PNEUMONIA, ORGANISM NOS 02/28/2016 Ot 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 02/28/2016 Ot 244.9 HYPOTHYROIDISM NOS 02/28/2016 Ot 585.3 CHRONIC KIDNEY DISEASE, STAGE III (MODER 02/28/2016 Ot V10.02 HX-ORAL/PHARYNX MALG NEC 02/28/2016 Ot V10.46 HX-PROSTATIC MALIGNANCY 02/28/2016 Ot V12.61 PERSONAL HISTORY, PNEUMONIA (RECURRENT) 02/28/2016 Ot V58.66 LONG-TERM (CURRENT) USE OF ASPIRIN 02/28/2016 Ot V58.69 OTH MED,LT,CURRENT USE 02/28/2016 Ot V67.1 RADIOTHERAPY FOLLOW-UP 02/28/2016 Ot V67.2 CHEMOTHERAPY FOLLOW-UP 02/28/2016 Ot 227.0 BENIGN NEOPLASM ADRENAL 02/28/2016 Ot 441.4 ABDOM AORTIC ANEURYSM 02/28/2016 Ot 593.2 CYST OF KIDNEY, ACQUIRED 02/28/2016 Ot 786.07 WHEEZING 02/28/2016 Ot 786.9 RESP SYS/CHEST SYMP NEC 02/28/2016 Ot 793.19 OTHER NONSPECIFIC ABNORMAL FINDING OF RUBY 02/28/2016 Ot 786.07 WHEEZING 02/28/2016 Ot V15.82 HISTORY OF TOBACCO USE 02/28/2016 Ot 272.4 HYPERLIPIDEMIA NEC/NOS 02/28/2016 Ot 401.9 HYPERTENSION NOS 02/28/2016 Ot 414.00 CORON ATHEROSCLER NOS TYPE VESSEL, NATIV 02/28/2016 Ot 433.30 MULT BILTRAL ARTERY OCCLUSION WO CEREBRA 02/28/2016 Ot 440.0 AORTIC ATHEROSCLEROSIS 02/28/2016 Ot 441.4 ABDOM AORTIC ANEURYSM 02/28/2016 Ot 492.8 EMPHYSEMA NEC 02/28/2016 Ot 780.2 SYNCOPE AND COLLAPSE 02/28/2016 Ot 244.9 HYPOTHYROIDISM NOS 02/28/2016 Ot 585.3 CHRONIC KIDNEY DISEASE, STAGE III (MODER 02/28/2016 Ot V10.02 HX-ORAL/PHARYNX MALG NEC 02/28/2016 Ot V10.46 HX-PROSTATIC MALIGNANCY 02/28/2016 Ot V12.61 PERSONAL HISTORY, PNEUMONIA (RECURRENT) 02/28/2016 Ot V58.66 LONG-TERM (CURRENT) USE OF ASPIRIN 02/28/2016 Ot V58.69 OTH MED,LT,CURRENT USE 02/28/2016 Ot V67.1 RADIOTHERAPY FOLLOW-UP 02/28/2016 Ot V67.2 CHEMOTHERAPY FOLLOW-UP 02/28/2016 Ot V72.84 EXAM PRE-OPERATIVE NOS 02/28/2016 Ot V72.84 EXAM PRE-OPERATIVE NOS 02/28/2016 Ot 185 MALIGN NEOPL PROSTATE 02/28/2016 JOSE SKAGGS MD Ot 486 PNEUMONIA, ORGANISM NOS 02/28/2016 SUNDAR COULTER Ot 272.4 HYPERLIPIDEMIA NEC/NOS 02/28/2016 SUNDAR COULTER Ot 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 02/28/2016 SUNDAR COULTER Ot 397.0 TRICUSPID VALVE DISEASE 02/28/2016 SUNDAR COULTER Ot 401.9 HYPERTENSION NOS 02/28/2016 SUNDAR COULTER Ot 414.00 CORON ATHEROSCLER NOS TYPE VESSEL, NATIV 02/28/2016 SUNDAR COULTER Ot 441.7 THORACOABDOMINAL ANEURYSM WO RUPTURE 02/28/2016 SUNDAR COULTER Ot 793.3 NOSP (ABN) FINDINGS ON RADIOLOGICAL OT 02/28/2016 VENECIA CALVO Ot 244.9 HYPOTHYROIDISM NOS 02/28/2016 VENECIA CALVO Ot 285.9 ANEMIA NOS 02/28/2016 VENECIA CALVO Ot 585.3 CHRONIC KIDNEY DISEASE, STAGE III (MODER 02/28/2016 VENECIA CALVO Ot V10.02 HX-ORAL/PHARYNX MALG NEC 02/28/2016 VENECIA CALVO Ot V10.46 HX-PROSTATIC MALIGNANCY 02/28/2016 VENECIA CALVO Ot V12.61 PERSONAL HISTORY, PNEUMONIA (RECURRENT) 02/28/2016 VENECIA CALVO Ot V58.66 LONG-TERM (CURRENT) USE OF ASPIRIN 02/28/2016 VENECIA CALVO Ot V58.69 OTH MED,LT,CURRENT USE 02/28/2016 VENECIA CALVO Ot V67.1 RADIOTHERAPY FOLLOW-UP 02/28/2016 VENECIA CALVO Ot V67.2 CHEMOTHERAPY FOLLOW-UP 02/28/2016 JOSE SKAGGS MD Ot 786.7 ABNORMAL CHEST SOUNDS 02/28/2016 JOSE SKAGGS MD Ot 793.19 OTHER NONSPECIFIC ABNORMAL FINDING OF RUBY 02/28/2016 JOSE SKAGGS MD Ot 486 PNEUMONIA, ORGANISM NOS 02/28/2016 JOSE SKAGGS MD Ot 496 CHR AIRWAY OBSTRUCT NEC 02/28/2016 JOSE SKAGGS MD Ot 518.0 PULMONARY COLLAPSE 02/28/2016 JOSE SKAGGS MD Ot 784.2 SWELLING IN HEAD NECK 02/28/2016 JOSE SKAGGS MD Ot 786.2 COUGH 02/28/2016 JOSE SKAGGS MD Ot 793.19 OTHER NONSPECIFIC ABNORMAL FINDING OF RUBY 02/28/2016 JOSE SKAGGS MD Ot V10.89 HX OF MALIGNANCY NEC 02/28/2016 GAURAV HERRERA DO Ot 785.6 ENLARGEMENT LYMPH NODES 02/28/2016 GAURAV HERRERA DO Ot 793.11 SOLITARY PULMONARY NODULE 02/28/2016 GAURAV HERRERA DO Ot 244.9 HYPOTHYROIDISM NOS 02/28/2016 GAURAV HERRERA DO Ot 585.3 CHRONIC KIDNEY DISEASE, STAGE III (MODER 02/28/2016 GAURAV HERRERA DO Ot 786.09 RESPIRATORY ABNORM NEC 02/28/2016 GAURAV HERRERA DO Ot V64.3 NO PROC FOR REASONS NEC 02/28/2016 GAURAV HERRERA DO Ot V72.84 EXAM PRE-OPERATIVE NOS 02/28/2016 GAURAV HERRERA DO Ot 162.9 MAL RODRIGUEZ BRONCH/LUNG NOS 02/28/2016 GAURAV HERRERA DO Ot 162.9 MAL RODRIGUEZ BRONCH/LUNG NOS 02/28/2016 VENECIA CALVO Ot 162.9 MAL RODRIGUEZ BRONCH/LUNG NOS 02/28/2016 JACK INGRAM LAUNDRY MANAGER Ot 162.9 MAL RODRIGUEZ BRONCH/LUNG NOS 02/28/2016 JOSE SKAGGS MD Ot 285.9 ANEMIA NOS 02/28/2016 Ot 492.8 EMPHYSEMA NEC 02/28/2016 Ot 515 POSTINFLAM PULM FIBROSIS 02/28/2016 OLI RDZ, LORI Jordan Ot 709.9 SKIN DISORDER NOS 02/28/2016 OLI RDZ, LORI Jordan Ot V72.84 EXAM PRE-OPERATIVE NOS 02/28/2016 JACK INGRAM LAUNDRY MANAGER Ot 162.5 MAL RODRIGUEZ LOWER LOBE LUNG 02/28/2016 JACK INGRAM LAUNDRY MANAGER Ot 170.1 MALIGNANT RODRIGUEZ MANDIBLE 02/28/2016 JACK INGRAM LAUNDRY MANAGER Ot 196.0 MAL RODRIGUEZ LYMPH-HEAD/NECK 02/28/2016 JACK INGRAM S LAUNDRY MANAGER Ot 244.1 POSTABLAT HYPOTHYR NEC 02/28/2016 JACK INGRAM LAUNDRY MANAGER Ot 280.9 IRON DEFIC ANEMIA NOS 02/28/2016 JACK INGRAM S LAUNDRY MANAGER Ot 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 02/28/2016 JACK INGRAM LAUNDRY MANAGER Ot V10.46 HX-PROSTATIC MALIGNANCY 02/28/2016 JACK INGRAM LAUNDRY MANAGER Ot V15.3 HX OF IRRADIATION 02/28/2016 JACK INGRAM LAUNDRY MANAGER Ot V58.69 OT MED,LT,CURRENT USE 02/28/2016 OLI RDZ, LORI Jordan Ot L98.9 DISORDER OF THE SKIN AND SUBCUTANEOUS TI 02/28/2016 OLI RDZ, LORI Jordan Ot Z01.818 ENCOUNTER FOR OTHER PREPROCEDURAL EXAMIN 02/28/2016 OLI RDZ, LORI Jordan Ot Z11.2 ENCOUNTER FOR SCREENING FOR OTHER BACTER 02/28/2016 LUBNAVENECIA N Ot 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 02/28/2016 LUBNAVENECIA N Ot C61 MALIGNANT NEOPLASM OF PROSTATE 02/28/2016 LUBNACHRISTOPHER SMYTHJUSTINE N Ot 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 CHRONIC KIDNEY DISEASE 02/28/2016 LUBNAVENECIA N Ot E03.9 HYPOTHYROIDISM, UNSPECIFIED 02/28/2016 LUBNA, VENECIA N Ot N18.3 CHRONIC KIDNEY DISEASE, STAGE 3 (MODERAT 02/28/2016 LUBNAVENECIA SMYTH N Ot Z79.899 OTHER USP (CURRENT) DRUG THERAPY 02/28/[address] RDZ, JOSE Granado Ot 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, 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 02/28/2016 JACK INGRAM LAUNDRY MANAGER Ot 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 02/28/2016 JACK INGRAM LAUNDRY MANAGER Ot C61 MALIGNANT NEOPLASM OF PROSTATE 02/28/2016 JACK INGRAM LAUNDRY MANAGER Ot 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 CHRONIC KIDNEY DISEASE 02/28/2016 JACK INGRAM LAUNDRY MANAGER Ot E03.9 HYPOTHYROIDISM, UNSPECIFIED 02/28/2016 JACK INGRAM LAUNDRY MANAGER Ot N18.3 CHRONIC KIDNEY DISEASE, STAGE 3 ( MODERAT 02/28/2016 JACK INGRAM LAUNDRY MANAGER Ot Z79.899 OTHER USP (CURRENT) DRUG THERAPY 02/29/2016 JACK INGRAM LAUNDRY MANAGER Ot 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 02/29/2016 JACK INGRAM LAUNDRY MANAGER Ot C61 MALIGNANT NEOPLASM OF PROSTATE 02/29/2016 INGRAM, HILAH S LAUNDRY MANAGER Ot 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 CHRONIC KIDNEY DISEASE 02/29/2016 JACK INGRAM LAUNDRY MANAGER Ot E03.9 HYPOTHYROIDISM, UNSPECIFIED 02/29/2016 JACK INGRAM LAUNDRY MANAGER Ot N18.3 CHRONIC KIDNEY DISEASE, STAGE 3 ( MODERAT 02/29/2016 JACK INGRAM LAUNDRY MANAGER Ot 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 03/01/2016 JOSE SKAGGS MD Ot R05 COUGH 03/01/2016 JOSE SKAGGS MD Ot R06.00 DYSPNEA, UNSPECIFIED 03/16/2016 LUBNAVENECIA SMYTH N Ot 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 03/16/2016 LUBNAVENECIA SMYTH N Ot C61 MALIGNANT NEOPLASM OF PROSTATE 03/16/2016 LUBNAVENECIA SMYTH N Ot 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 CHRONIC KIDNEY DISEASE 03/16/2016 LUBNAVENECIA SMYTH N Ot E03.9 HYPOTHYROIDISM, UNSPECIFIED 03/16/2016 LUBNAVENECIA SMYTH N Ot N18.3 CHRONIC KIDNEY DISEASE, STAGE 3 (MODERAT 03/16/2016 LUBNAVENECIA SMYTH N Ot Z79.899 OTHER USP (CURRENT) DRUG THERAPY 03/16/2016 JOSE SKAGGS MD Ot J44.9 CHRONIC OBSTRUCTIVE PULMONARY DISEASE, U 03/16/2016 JOSE SKAGGS MD Ot J90 PLEURAL EFFUSION, NOT ELSEWHERE CLASSIFI 03/16/2016 JOSE SKAGGS MD Ot J98.4 OTHER DISORDERS OF LUNG 03/16/2016 JOSE SKAGGS MD Ot R91.8 OTHER NONSPECIFIC ABNORMAL FINDING OF RUBY 03/21/2016 JOSE SKAGGS MD Ot R05 COUGH 03/21/2016 JOSE SKAGGS MD Ot R06.00 DYSPNEA, UNSPECIFIED 03/24/2016 JACK INGRAM LAUNDRY MANAGER Ot 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 03/24/2016 JACK INGRAM LAUNDRY MANAGER Ot C61 MALIGNANT NEOPLASM OF PROSTATE 03/24/2016 JACK INGRAM LAUNDRY MANAGER Ot 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, WITHOU 03/24/2016 JACK INGRAM LAUNDRY MANAGER Ot J43.9 EMPHYSEMA, UNSPECIFIED 03/24/2016 JACK INGRAM LAUNDRY MANAGER Ot J90 PLEURAL EFFUSION, NOT ELSEWHERE CLASSIFI 03/24/2016 JACK INGRAM LAUNDRY MANAGER Ot K57.30 DVRTCLOS OF LG INT 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 OR AB 03/24/2016 JACK INGRAM LAUNDRY MANAGER Ot R59.0 LOCALIZED ENLARGED LYMPH NODES 04/05/2016 JACK INGRAMP Ot 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 04/05/2016 JACK INGRAMP Ot 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 04/05/2016 JACK INGRAMP Ot R63.4 ABNORMAL WEIGHT LOSS 04/06/[address] SHARIF[address] RDZ, JOSE Granado Ot J44.9 CHRONIC OBSTRUCTIVE PULMONARY DISEASE, U 04/06/2016 SHARIFA RDZ, JOSE Granado Ot J90 PLEURAL EFFUSION, NOT ELSEWHERE CLASSIFI 04/06/2016 SHARIFA RDZ, JOSE Granado Ot J98.4 OTHER DISORDERS OF LUNG 04/06/2016 SHARIFA RDZ, JOSE Granado Ot R91.8 OTHER NONSPECIFIC ABNORMAL FINDING OF RUBY 04/13/2016 JACK INGRAMP Ot 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 04/13/2016 JACK INGRAMP Ot C61 MALIGNANT NEOPLASM OF PROSTATE 04/13/2016 JACK INGRAMP Ot 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, WITHOU 04/13/2016 JACK INGRAMP Ot J43.9 EMPHYSEMA, UNSPECIFIED 04/13/2016 JACK INGRAMP Ot J90 PLEURAL EFFUSION, NOT ELSEWHERE CLASSIFI 04/13/2016 JACK INGRAMP Ot K57.30 DVRTCLOS OF LG INT 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 OR AB 04/13/2016 JACK INGRAM LAUNDRY MANAGER Ot R59.0 LOCALIZED ENLARGED LYMPH NODES 04/30/2016 VENECIA CALVO Ot 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 04/30/2016 VENECIA CALVO Ot C61 MALIGNANT NEOPLASM OF PROSTATE 04/30/2016 VENECIA CALVO Ot 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 CHRONIC KIDNEY DISEASE 04/30/2016 VENECIA CALVO Ot E03.9 HYPOTHYROIDISM, UNSPECIFIED 04/30/2016 VENECIA CALVO Ot N18.3 CHRONIC KIDNEY DISEASE, STAGE 3 (MODERAT 04/30/2016 VENECIA CALVO Ot 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 05/01/2016 AINSLEY KIRBY APRN Ot J84.9 INTERSTITIAL PULMONARY DISEASE, UNSPECIF 05/01/2016 AINSLEY KIRBY APRN Ot R06.02 SHORTNESS OF BREATH 05/02/2016 AINSLEY KIRBY APRN Ot J84.9 INTERSTITIAL PULMONARY DISEASE, UNSPECIF 05/02/2016 AINSLEY KIRBY APRN Ot R06.02 SHORTNESS OF BREATH 05/09/2016 Ot V10.02 HX-ORAL/PHARYNX MALG NEC 05/09/2016 Ot V10.46 HX-PROSTATIC MALIGNANCY 05/09/2016 Ot V58.66 LONG-TERM (CURRENT) USE OF ASPIRIN 05/09/2016 Ot V58.69 OTH MED,LT,CURRENT USE 05/09/2016 Ot V67.1 RADIOTHERAPY FOLLOW-UP 05/09/2016 Ot V67.2 CHEMOTHERAPY FOLLOW-UP 05/09/2016 Ot 272.4 HYPERLIPIDEMIA NEC/NOS 05/09/2016 Ot 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 05/09/2016 Ot 397.0 TRICUSPID VALVE DISEASE 05/09/2016 Ot 401.9 HYPERTENSION NOS 05/09/2016 Ot 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 05/09/2016 Ot 492.8 EMPHYSEMA NEC 05/09/2016 Ot 793.1 NOSP (ABN) FINDINGS ON RADIOLOGICAL OT 05/09/2016 Ot 276.1 HYPOSMOLALITY 05/09/2016 Ot 276.8 HYPOPOTASSEMIA 05/09/2016 Ot 486 PNEUMONIA, ORGANISM NOS 05/09/2016 Ot 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 05/09/2016 Ot 244.9 HYPOTHYROIDISM NOS 05/09/2016 Ot 585.3 CHRONIC KIDNEY DISEASE, STAGE III (MODER 05/09/2016 Ot V10.02 HX-ORAL/PHARYNX MALG NEC 05/09/2016 Ot V10.46 HX-PROSTATIC MALIGNANCY 05/09/2016 Ot V12.61 PERSONAL HISTORY, PNEUMONIA (RECURRENT) 05/09/2016 Ot V58.66 LONG-TERM (CURRENT) USE OF ASPIRIN 05/09/2016 Ot V58.69 OTH MED,LT,CURRENT USE 05/09/2016 Ot V67.1 RADIOTHERAPY FOLLOW-UP 05/09/2016 Ot V67.2 CHEMOTHERAPY FOLLOW-UP 05/09/2016 Ot 227.0 BENIGN NEOPLASM ADRENAL 05/09/2016 Ot 441.4 ABDOM AORTIC ANEURYSM 05/09/2016 Ot 593.2 CYST OF KIDNEY, ACQUIRED 05/09/2016 Ot 786.07 WHEEZING 05/09/2016 Ot 786.9 RESP SYS/CHEST SYMP NEC 05/09/2016 Ot 793.19 OTHER NONSPECIFIC ABNORMAL FINDING OF RUBY 05/09/2016 Ot 786.07 WHEEZING 05/09/2016 Ot V15.82 HISTORY OF TOBACCO USE 05/09/2016 Ot 272.4 HYPERLIPIDEMIA NEC/NOS 05/09/2016 Ot 401.9 HYPERTENSION NOS 05/09/2016 Ot 414.00 CORON ATHEROSCLER NOS TYPE VESSEL, NATIV 05/09/2016 Ot 433.30 MULT BILTRAL ARTERY OCCLUSION WO CEREBRA 05/09/2016 Ot 440.0 AORTIC ATHEROSCLEROSIS 05/09/2016 Ot 441.4 ABDOM AORTIC ANEURYSM 05/09/2016 Ot 492.8 EMPHYSEMA NEC 05/09/2016 Ot 780.2 SYNCOPE AND COLLAPSE 05/09/2016 Ot 244.9 HYPOTHYROIDISM NOS 05/09/2016 Ot 585.3 CHRONIC KIDNEY DISEASE, STAGE III (MODER 05/09/2016 Ot V10.02 HX-ORAL/PHARYNX MALG NEC 05/09/2016 Ot V10.46 HX-PROSTATIC MALIGNANCY 05/09/2016 Ot V12.61 PERSONAL HISTORY, PNEUMONIA (RECURRENT) 05/09/2016 Ot V58.66 LONG-TERM (CURRENT) USE OF ASPIRIN 05/09/2016 Ot V58.69 OTH MED,LT,CURRENT USE 05/09/2016 Ot V67.1 RADIOTHERAPY FOLLOW-UP 05/09/2016 Ot V67.2 CHEMOTHERAPY FOLLOW-UP 05/09/2016 Ot V72.84 EXAM PRE-OPERATIVE NOS 05/09/2016 Ot V72.84 EXAM PRE-OPERATIVE NOS 05/09/2016 Ot 185 MALIGN NEOPL PROSTATE 05/09/[address]Z, JOSE Granado Ot 486 PNEUMONIA, ORGANISM NOS 05/09/2016 SUNDAR COULTER Ot 272.4 HYPERLIPIDEMIA NEC/NOS 05/09/2016 SUNDAR COULTER Ot 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 05/09/2016 SUNDAR COULTER Ot 397.0 TRICUSPID VALVE DISEASE 05/09/2016 SUNDAR COULTER Ot 401.9 HYPERTENSION NOS 05/09/2016 SUNDAR COULTER Ot 414.00 CORON ATHEROSCLER NOS TYPE VESSEL, NATIV 05/09/2016 SUNDAR COULTER Ot 441.7 THORACOABDOMINAL ANEURYSM WO RUPTURE 05/09/2016 SUNDAR COULTER Ot 793.3 NOSP (ABN) FINDINGS ON RADIOLOGICAL OT 05/09/2016 LUBNA, VENECIA Rahman Ot 244.9 HYPOTHYROIDISM NOS 05/09/2016 LUBNAVENECIA Ot 285.9 ANEMIA NOS 05/09/2016 LUBNAVENECIA Ot 585.3 CHRONIC KIDNEY DISEASE, STAGE III (MODER 05/09/2016 LUBNA VENECIA Rahman Ot V10.02 HX-ORAL/PHARYNX MALG NEC 05/09/2016 LUBNAVENECIA Ot V10.46 HX-PROSTATIC MALIGNANCY 05/09/2016 VENECIA CALVO Ot V12.61 PERSONAL HISTORY, PNEUMONIA (RECURRENT) 05/09/2016 VENECIA CALVO Ot V58.66 LONG-TERM (CURRENT) USE OF ASPIRIN 05/09/2016 VENECIA CALVO Ot V58.69 OTH MED,LT,CURRENT USE 05/09/2016 LUBNAVENECIA Ot V67.1 RADIOTHERAPY FOLLOW-UP 05/09/2016 VENECIA CALVO Ot V67.2 CHEMOTHERAPY FOLLOW-UP 05/09/2016 JOSE SKAGGS MD Ot 786.7 ABNORMAL CHEST SOUNDS 05/09/2016 JOSE SKAGGS MD Ot 793.19 OTHER NONSPECIFIC ABNORMAL FINDING OF RUBY 05/09/2016 JOSE SKAGGS MD Ot 486 PNEUMONIA, ORGANISM NOS 05/09/2016 JOSE SKAGGS MD Ot 496 CHR AIRWAY OBSTRUCT NEC 05/09/2016 JOSE SKAGGS MD Ot 518.0 PULMONARY COLLAPSE 05/09/2016 JOSE SKAGGS MD Ot 784.2 SWELLING IN HEAD NECK 05/09/2016 JOSE SKAGGS MD Ot 786.2 COUGH 05/09/2016 JOSE SKAGGS MD Ot 793.19 OTHER NONSPECIFIC ABNORMAL FINDING OF RUBY 05/09/2016 JOSE SKAGGS MD Ot V10.89 HX OF MALIGNANCY NEC 05/09/2016 GAURAV HERRERA DO Ot 785.6 ENLARGEMENT LYMPH NODES 05/09/2016 GAURAV HERRERA DO Ot 793.11 SOLITARY PULMONARY NODULE 05/09/2016 GAURAV HERRERA DO Ot 244.9 HYPOTHYROIDISM NOS 05/09/2016 GAURAV HERRERA DO Ot 585.3 CHRONIC KIDNEY DISEASE, STAGE III (MODER 05/09/2016 GAURAV HERRERA DO Ot 786.09 RESPIRATORY ABNORM NEC 05/09/2016 GAURAV HERRERA DO Ot V64.3 NO PROC FOR REASONS NEC 05/09/2016 GAURAV HERRERA DO Ot V72.84 EXAM PRE-OPERATIVE NOS 05/09/2016 GAURAV HERRERA DO Ot 162.9 MAL RODRIGUEZ BRONCH/LUNG NOS 05/09/2016 GAURAV HERRERA DO Ot 162.9 MAL RODRIGUEZ BRONCH/LUNG NOS 05/09/2016 VENECIA CALVO Lacey Ot 162.9 MAL RODRIGUEZ BRONCH/LUNG NOS 05/09/2016 JACK INGRAM LAUNDRY MANAGER Ot 162.9 MAL RODRIGUEZ BRONCH/LUNG NOS 05/09/[address]Z, JOSE Granado Ot 285.9 ANEMIA NOS 05/09/2016 Ot 492.8 EMPHYSEMA NEC 05/09/2016 Ot 515 POSTINFLAM PULM FIBROSIS 05/09/2016 OLI RDZ, LORI Jordan Ot 709.9 SKIN DISORDER NOS 05/09/2016 OLI RDZ, LORI Jordan Ot V72.84 EXAM PRE-OPERATIVE NOS 05/09/2016 JACK INGRAM LAUNDRY MANAGER Ot 162.5 MAL RODRIGUEZ LOWER LOBE LUNG 05/09/2016 JACK INGRAM S LAUNDRY MANAGER Ot 170.1 MALIGNANT RODRIGUEZ MANDIBLE 05/09/2016 JACK INGRAM S LAUNDRY MANAGER Ot 196.0 MAL RODRIGUEZ LYMPH-HEAD/NECK 05/09/2016 JACK INGRAM S LAUNDRY MANAGER Ot 244.1 POSTABLAT HYPOTHYR NEC 05/09/2016 JACK INGRAM S LAUNDRY MANAGER Ot 280.9 IRON DEFIC ANEMIA NOS 05/09/2016 JACK INGRAM S LAUNDRY MANAGER Ot 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 05/09/2016 JACK INGRAM S LAUNDRY MANAGER Ot V10.46 HX-PROSTATIC MALIGNANCY 05/09/2016 JACK INGRAM S LAUNDRY MANAGER Ot V15.3 HX OF IRRADIATION 05/09/2016 JACK INGRAM S LAUNDRY MANAGER Ot V58.69 OT MED,LT,CURRENT USE 05/09/2016 OLI RDZ, LORI Jordan Ot L98.9 DISORDER OF THE SKIN AND SUBCUTANEOUS TI 05/09/2016 OLI RDZ, LORI Jordan Ot Z01.818 ENCOUNTER FOR OTHER PREPROCEDURAL EXAMIN 05/09/2016 OLI RDZ, LORI M Ot Z11.2 ENCOUNTER FOR SCREENING FOR OTHER BACTER 05/09/2016 JOSE SKAGGS MD Ot 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, 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 05/09/2016 JACK INGRAMP Ot 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 05/09/2016 JACK INGRAM LAUNDRY MANAGER Ot C61 MALIGNANT NEOPLASM OF PROSTATE 05/09/2016 JACK INGRAMP Ot 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 CHRONIC KIDNEY DISEASE 05/09/2016 JACK INGRAM LAUNDRY MANAGER Ot E03.9 HYPOTHYROIDISM, UNSPECIFIED 05/09/2016 JACK INGRAMP Ot N18.3 CHRONIC KIDNEY DISEASE, STAGE 3 ( MODERAT 05/09/2016 JACK INGRAMP Ot Z79.899 OTHER USP (CURRENT) DRUG THERAPY 05/09/2016 JOSE SKAGGS MD Ot R05 COUGH 05/09/2016 JOSE SKAGGS MD Ot R06.00 DYSPNEA, UNSPECIFIED 05/09/2016 JOSE SKAGGS MD Ot J44.9 CHRONIC OBSTRUCTIVE PULMONARY DISEASE, U 05/09/2016 JOSE SKAGGS MD Ot J90 PLEURAL EFFUSION, NOT ELSEWHERE CLASSIFI 05/09/2016 JOSE SKAGGS MD Ot J98.4 OTHER DISORDERS OF LUNG 05/09/2016 JOSE SKAGGS MD Ot R91.8 OTHER NONSPECIFIC ABNORMAL FINDING OF RUBY 05/09/2016 JACK INGRAMP Ot 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 05/09/2016 JACK INGRAM LAUNDRY MANAGER Ot C61 MALIGNANT NEOPLASM OF PROSTATE 05/09/2016 JACK INGRAM LAUNDRY MANAGER Ot 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, WITHOU 05/09/2016 JACK INGRAM LAUNDRY MANAGER Ot J43.9 EMPHYSEMA, UNSPECIFIED 05/09/2016 JACK INGRAM LAUNDRY MANAGER Ot J90 PLEURAL EFFUSION, NOT ELSEWHERE CLASSIFI 05/09/2016 JACK INGRAM LAUNDRY MANAGER Ot K57.30 DVRTCLOS OF LG INT 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 OR AB 05/09/2016 JACK INGRAM LAUNDRY MANAGER Ot R59.0 LOCALIZED ENLARGED LYMPH NODES 05/09/2016 JACK INGRAM LAUNDRY MANAGER Ot 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 05/09/2016 JACK INGRAM Dannie [facility] Ot R63.4 ABNORMAL WEIGHT LOSS 05/09/2016 AINSLEY KIRBY APRN Ot J84.9 INTERSTITIAL PULMONARY DISEASE, UNSPECIF 05/09/2016 AINSLEY KIRBY APRN Ot R06.02 SHORTNESS OF BREATH 05/09/2016 VENECIA CALVO Ot 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 05/09/2016 VENECIA CALVO Lacey Ot C61 MALIGNANT NEOPLASM OF PROSTATE 05/09/2016 VENECIA CALVO Ot 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 CHRONIC KIDNEY DISEASE 05/09/2016 VENECIA CALVO Ot E03.9 HYPOTHYROIDISM, UNSPECIFIED 05/09/2016 VENECIA CALVO Ot N18.3 CHRONIC KIDNEY DISEASE, STAGE 3 (MODERAT 05/09/2016 VENECIA CALVO Ot 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 05/10/2016 JACK INGRAM [facility] Ot 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 05/10/2016 JACK INGRAM [facility] Ot R63.4 ABNORMAL WEIGHT LOSS 05/15/2016 Ot V10.02 HX-ORAL/PHARYNX MALG NEC 05/15/2016 Ot V10.46 HX-PROSTATIC MALIGNANCY 05/15/2016 Ot V58.66 LONG-TERM (CURRENT) USE OF ASPIRIN 05/15/2016 Ot V58.69 OTH MED,LT,CURRENT USE 05/15/2016 Ot V67.1 RADIOTHERAPY FOLLOW-UP 05/15/2016 Ot V67.2 CHEMOTHERAPY FOLLOW-UP 05/15/2016 Ot 272.4 HYPERLIPIDEMIA NEC/NOS 05/15/2016 Ot 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 05/15/2016 Ot 397.0 TRICUSPID VALVE DISEASE 05/15/2016 Ot 401.9 HYPERTENSION NOS 05/15/2016 Ot 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 05/15/2016 Ot 492.8 EMPHYSEMA NEC 05/15/2016 Ot 793.1 NOSP (ABN) FINDINGS ON RADIOLOGICAL OT 05/15/2016 Ot 276.1 HYPOSMOLALITY 05/15/2016 Ot 276.8 HYPOPOTASSEMIA 05/15/2016 Ot 486 PNEUMONIA, ORGANISM NOS 05/15/2016 Ot 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 05/15/2016 Ot 244.9 HYPOTHYROIDISM NOS 05/15/2016 Ot 585.3 CHRONIC KIDNEY DISEASE, STAGE III (MODER 05/15/2016 Ot V10.02 HX-ORAL/PHARYNX MALG NEC 05/15/2016 Ot V10.46 HX-PROSTATIC MALIGNANCY 05/15/2016 Ot V12.61 PERSONAL HISTORY, PNEUMONIA (RECURRENT) 05/15/2016 Ot V58.66 LONG-TERM (CURRENT) USE OF ASPIRIN 05/15/2016 Ot V58.69 OTH MED,LT,CURRENT USE 05/15/2016 Ot V67.1 RADIOTHERAPY FOLLOW-UP 05/15/2016 Ot V67.2 CHEMOTHERAPY FOLLOW-UP 05/15/2016 Ot 227.0 BENIGN NEOPLASM ADRENAL 05/15/2016 Ot 441.4 ABDOM AORTIC ANEURYSM 05/15/2016 Ot 593.2 CYST OF KIDNEY, ACQUIRED 05/15/2016 Ot 786.07 WHEEZING 05/15/2016 Ot 786.9 RESP SYS/CHEST SYMP NEC 05/15/2016 Ot 793.19 OTHER NONSPECIFIC ABNORMAL FINDING OF RUBY 05/15/2016 Ot 786.07 WHEEZING 05/15/2016 Ot V15.82 HISTORY OF TOBACCO USE 05/15/2016 Ot 272.4 HYPERLIPIDEMIA NEC/NOS 05/15/2016 Ot 401.9 HYPERTENSION NOS 05/15/2016 Ot 414.00 CORON ATHEROSCLER NOS TYPE VESSEL, NATIV 05/15/2016 Ot 433.30 MULT BILTRAL ARTERY OCCLUSION WO CEREBRA 05/15/2016 Ot 440.0 AORTIC ATHEROSCLEROSIS 05/15/2016 Ot 441.4 ABDOM AORTIC ANEURYSM 05/15/2016 Ot 492.8 EMPHYSEMA NEC 05/15/2016 Ot 780.2 SYNCOPE AND COLLAPSE 05/15/2016 Ot 244.9 HYPOTHYROIDISM NOS 05/15/2016 Ot 585.3 CHRONIC KIDNEY DISEASE, STAGE III (MODER 05/15/2016 Ot V10.02 HX-ORAL/PHARYNX MALG NEC 05/15/2016 Ot V10.46 HX-PROSTATIC MALIGNANCY 05/15/2016 Ot V12.61 PERSONAL HISTORY, PNEUMONIA (RECURRENT) 05/15/2016 Ot V58.66 LONG-TERM (CURRENT) USE OF ASPIRIN 05/15/2016 Ot V58.69 OTH MED,LT,CURRENT USE 05/15/2016 Ot V67.1 RADIOTHERAPY FOLLOW-UP 05/15/2016 Ot V67.2 CHEMOTHERAPY FOLLOW-UP 05/15/2016 Ot V72.84 EXAM PRE-OPERATIVE NOS 05/15/2016 Ot V72.84 EXAM PRE-OPERATIVE NOS 05/15/2016 Ot 185 MALIGN NEOPL PROSTATE 05/15/[address]Z, JOSE Granado Ot 486 PNEUMONIA, ORGANISM NOS 05/15/2016 SUNDAR COULTER Ot 272.4 HYPERLIPIDEMIA NEC/NOS 05/15/2016 SUNDAR COULTER Ot 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 05/15/2016 SUNDAR COULTER Ot 397.0 TRICUSPID VALVE DISEASE 05/15/2016 SUNDAR COULTER Ot 401.9 HYPERTENSION NOS 05/15/2016 SUNDAR COULTER Ot 414.00 CORON ATHEROSCLER NOS TYPE VESSEL, NATIV 05/15/2016 SUNDAR COULTER Ot 441.7 THORACOABDOMINAL ANEURYSM WO RUPTURE 05/15/2016 SUNDAR COULTER Ot 793.3 NOSP (ABN) FINDINGS ON RADIOLOGICAL OT 05/15/2016 VENECIA CALVO Ot 244.9 HYPOTHYROIDISM NOS 05/15/2016 VENECIA CALVO Ot 285.9 ANEMIA NOS 05/15/2016 VENECIA CALVO Ot 585.3 CHRONIC KIDNEY DISEASE, STAGE III (MODER 05/15/2016 VENECIA CALVO Ot V10.02 HX-ORAL/PHARYNX MALG NEC 05/15/2016 VENECIA CALVO Ot V10.46 HX-PROSTATIC MALIGNANCY 05/15/2016 VENECIA CALVO Ot V12.61 PERSONAL HISTORY, PNEUMONIA (RECURRENT) 05/15/2016 VENECIA CALVO Ot V58.66 LONG-TERM (CURRENT) USE OF ASPIRIN 05/15/2016 VENECIA CALVO Ot V58.69 OTH MED,LT,CURRENT USE 05/15/2016 VENECIA CALVO Ot V67.1 RADIOTHERAPY FOLLOW-UP 05/15/2016 VENECIA CALVO Ot V67.2 CHEMOTHERAPY FOLLOW-UP 05/15/2016 JOSE SKAGGS MD Ot 786.7 ABNORMAL CHEST SOUNDS 05/15/2016 JOSE SKAGGS MD Ot 793.19 OTHER NONSPECIFIC ABNORMAL FINDING OF RUBY 05/15/2016 JOSE SKAGGS MD Ot 486 PNEUMONIA, ORGANISM NOS 05/15/2016 JOSE SKAGGS MD Ot 496 CHR AIRWAY OBSTRUCT NEC 05/15/2016 JOSE SKAGGS MD Ot 518.0 PULMONARY COLLAPSE 05/15/2016 JOSE SKAGGS MD Ot 784.2 SWELLING IN HEAD NECK 05/15/2016 JOSE SKAGGS MD Ot 786.2 COUGH 05/15/2016 JOSE SKAGGS MD Ot 793.19 OTHER NONSPECIFIC ABNORMAL FINDING OF RUBY 05/15/2016 JOSE SKAGGS MD Ot V10.89 HX OF MALIGNANCY NEC 05/15/2016 GAURAV HERRERA DO Ot 785.6 ENLARGEMENT LYMPH NODES 05/15/2016 GAURAV HERRERA DO Ot 793.11 SOLITARY PULMONARY NODULE 05/15/2016 GAURAV HERRERA DO Ot 244.9 HYPOTHYROIDISM NOS 05/15/2016 GAURAV HERRERA DO Ot 585.3 CHRONIC KIDNEY DISEASE, STAGE III (MODER 05/15/2016 GAURAV HERRERA DO Ot 786.09 RESPIRATORY ABNORM NEC 05/15/2016 GAURAV HERRERA DO Ot V64.3 NO PROC FOR REASONS NEC 05/15/2016 GAURAV HERRERA DO Ot V72.84 EXAM PRE-OPERATIVE NOS 05/15/2016 GAURAV HERRERA DO Ot 162.9 MAL RODRIGUEZ BRONCH/LUNG NOS 05/15/2016 GAURAV HERRERA DO Ot 162.9 MAL RODRIGUEZ BRONCH/LUNG NOS 05/15/2016 VENECIA CALVO Ot 162.9 MAL RODRIGUEZ BRONCH/LUNG NOS 05/15/2016 JACK INGRAM LAUNDRY MANAGER Ot 162.9 MAL RODRIGUEZ BRONCH/LUNG NOS 05/15/2016 JOSE SKAGGS MD Ot 285.9 ANEMIA NOS 05/15/2016 Ot 492.8 EMPHYSEMA NEC 05/15/2016 Ot 515 POSTINFLAM PULM FIBROSIS 05/15/2016 OLI RDZ, LORI Jordan Ot 709.9 SKIN DISORDER NOS 05/15/2016 OLI RDZ, LORI Jordan Ot V72.84 EXAM PRE-OPERATIVE NOS 05/15/2016 JACK INGRAM LAUNDRY MANAGER Ot 162.5 MAL RODRIGUEZ LOWER LOBE LUNG 05/15/2016 JACK INGRAM LAUNDRY MANAGER Ot 170.1 MALIGNANT RODRIGUEZ MANDIBLE 05/15/2016 JACK INGRAM LAUNDRY MANAGER Ot 196.0 MAL RODRIGUEZ LYMPH-HEAD/NECK 05/15/2016 JACK INGRAM LAUNDRY MANAGER Ot 244.1 POSTABLAT HYPOTHYR NEC 05/15/2016 JACK INGRAM LAUNDRY MANAGER Ot 280.9 IRON DEFIC ANEMIA NOS 05/15/2016 JACK INGRAM LAUNDRY MANAGER Ot 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 05/15/2016 JACK INGRAM LAUNDRY MANAGER Ot V10.46 HX-PROSTATIC MALIGNANCY 05/15/2016 JACK INGRAM LAUNDRY MANAGER Ot V15.3 HX OF IRRADIATION 05/15/2016 JACK INGRAM LAUNDRY MANAGER Ot V58.69 OT MED,LT,CURRENT USE 05/15/2016 OLI RDZ, LORI M Ot L98.9 DISORDER OF THE SKIN AND SUBCUTANEOUS TI 05/15/2016 OLI RDZ, LORI Jordan Ot Z01.818 ENCOUNTER FOR OTHER PREPROCEDURAL EXAMIN 05/15/2016 OLI RDZ, LORI Jordan Ot Z11.2 ENCOUNTER FOR SCREENING FOR OTHER BACTER 05/15/2016 SHARIFA RZD, JOSE Granado Ot 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, 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 05/15/2016 JACK INGRAM LAUNDRY MANAGER Ot 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 05/15/2016 JACK INGRAM LAUNDRY MANAGER Ot C61 MALIGNANT NEOPLASM OF PROSTATE 05/15/2016 JACK INGRAM LAUNDRY MANAGER Ot 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 CHRONIC KIDNEY DISEASE 05/15/2016 JACK INGRAM LAUNDRY MANAGER Ot E03.9 HYPOTHYROIDISM, UNSPECIFIED 05/15/2016 JACK INGRAM LAUNDRY MANAGER Ot N18.3 CHRONIC KIDNEY DISEASE, STAGE 3 ( MODERAT 05/15/2016 JACK INGRAM LAUNDRY MANAGER Ot Z79.899 OTHER USP (CURRENT) DRUG THERAPY 05/15/2016 JOSE SKAGGS MD Ot R05 COUGH 05/15/2016 JOSE SKAGGS MD Ot R06.00 DYSPNEA, UNSPECIFIED 05/15/2016 JOSE SKAGGS MD Ot J44.9 CHRONIC OBSTRUCTIVE PULMONARY DISEASE, U 05/15/2016 JOSE SKAGGS MD Ot J90 PLEURAL EFFUSION, NOT ELSEWHERE CLASSIFI 05/15/2016 JOSE SKAGGS MD Ot J98.4 OTHER DISORDERS OF LUNG 05/15/2016 JOSE SKAGGS MD Ot R91.8 OTHER NONSPECIFIC ABNORMAL FINDING OF RUBY 05/15/2016 JACK INGRAM LAUNDRY MANAGER Ot 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 05/15/2016 JACK INGRAM LAUNDRY MANAGER Ot C61 MALIGNANT NEOPLASM OF PROSTATE 05/15/2016 AIME INGRAMAVE Dannie LAUNDRY MANAGER Ot 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, WITHOU 05/15/2016 AIME INGRAMAVE Dannie LAUNDRY MANAGER Ot J43.9 EMPHYSEMA, UNSPECIFIED 05/15/2016 AIME INGRAMAVE Dannie LAUNDRY MANAGER Ot J90 PLEURAL EFFUSION, NOT ELSEWHERE CLASSIFI 05/15/2016 AIME INGRAMAVE Dannie LAUNDRY MANAGER Ot K57.30 DVRTCLOS OF LG INT 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 OR AB 05/15/2016 AIME INGRAMAVE Dannie LAUNDRY MANAGER Ot R59.0 LOCALIZED ENLARGED LYMPH NODES 05/15/2016 JACK INGRAM LAUNDRY MANAGER Ot 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 05/15/2016 AIME INGRAMAVE Dannie LAUNDRY MANAGER Ot R63.4 ABNORMAL WEIGHT LOSS 05/15/2016 AINSLEY KIRBY APRN Ot J84.9 INTERSTITIAL PULMONARY DISEASE, UNSPECIF 05/15/2016 AINSLEY KIRBY TECHNICAL SYSTEMS ARCHITECT Ot R06.02 SHORTNESS OF BREATH 05/15/2016 VENECIA CALVO Ot 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 05/15/2016 VENECIA CALVO Ot C61 MALIGNANT NEOPLASM OF PROSTATE 05/15/2016 VENECIA CALVO Ot 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 CHRONIC KIDNEY DISEASE 05/15/2016 VENECIA CALVO Ot E03.9 HYPOTHYROIDISM, UNSPECIFIED 05/15/2016 VENECIA CALVO Ot N18.3 CHRONIC KIDNEY DISEASE, STAGE 3 (MODERAT 05/15/2016 VENECIA CALVO Ot Z79.899 OTHER USP (CURRENT) DRUG THERAPY 05/16/2016 AINSLEY KIRBY TECHNICAL SYSTEMS ARCHITECT Ot G47.34 IDIO SLEEP RELATED NONOBSTRUCTIVE ALVEOL 05/16/2016 AINSLEY KIRBY TECHNICAL SYSTEMS ARCHITECT Ot J84.9 INTERSTITIAL PULMONARY DISEASE, UNSPECIF 05/16/2016 AINSLEY KIRBY TECHNICAL SYSTEMS ARCHITECT Ot R06.02 SHORTNESS OF BREATH 05/19/2016 AINSLEY KIRBY TECHNICAL SYSTEMS ARCHITECT Ot J84.9 INTERSTITIAL PULMONARY DISEASE, UNSPECIF 05/19/2016 AINSLEY KIRBY TECHNICAL SYSTEMS ARCHITECT Ot R06.02 SHORTNESS OF BREATH 06/15/2016 AINSLEY KIRBY APRN Ot G47.34 IDIO SLEEP RELATED NONOBSTRUCTIVE ALVEOL 06/15/2016 AINSLEY KIRBY APRN Ot J84.9 INTERSTITIAL PULMONARY DISEASE, UNSPECIF 06/15/2016 IANSLEY KIRBY APRN Ot R06.02 SHORTNESS OF BREATH 06/19/2016 Ot 272.4 HYPERLIPIDEMIA NEC/NOS 06/19/2016 Ot 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 06/19/2016 Ot 397.0 TRICUSPID VALVE DISEASE 06/19/2016 Ot 401.9 HYPERTENSION NOS 06/19/2016 Ot 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 06/19/2016 Ot 492.8 EMPHYSEMA NEC 06/19/2016 Ot 793.1 NOSP (ABN) FINDINGS ON RADIOLOGICAL OT 06/19/2016 Ot 276.1 HYPOSMOLALITY 06/19/2016 Ot 276.8 HYPOPOTASSEMIA 06/19/2016 Ot 486 PNEUMONIA, ORGANISM NOS 06/19/2016 Ot 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 06/19/2016 Ot 244.9 HYPOTHYROIDISM NOS 06/19/2016 Ot 585.3 CHRONIC KIDNEY DISEASE, STAGE III (MODER 06/19/2016 Ot V10.02 HX-ORAL/PHARYNX MALG NEC 06/19/2016 Ot V10.46 HX-PROSTATIC MALIGNANCY 06/19/2016 Ot V12.61 PERSONAL HISTORY, PNEUMONIA (RECURRENT) 06/19/2016 Ot V58.66 LONG-TERM (CURRENT) USE OF ASPIRIN 06/19/2016 Ot V58.69 OTH MED,LT,CURRENT USE 06/19/2016 Ot V67.1 RADIOTHERAPY FOLLOW-UP 06/19/2016 Ot V67.2 CHEMOTHERAPY FOLLOW-UP 06/19/2016 Ot 227.0 BENIGN NEOPLASM ADRENAL 06/19/2016 Ot 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.4 ABDOM AORTIC ANEURYSM 06/19/2016 Ot 593.2 CYST OF KIDNEY, ACQUIRED 06/19/2016 Ot 786.07 WHEEZING 06/19/2016 Ot 786.9 RESP SYS/CHEST SYMP NEC 06/19/2016 Ot 793.19 OTHER NONSPECIFIC ABNORMAL FINDING OF RUBY 06/19/2016 Ot 786.07 WHEEZING 06/19/2016 Ot V15.82 HISTORY OF TOBACCO USE 06/19/2016 Ot 272.4 HYPERLIPIDEMIA NEC/NOS 06/19/2016 Ot 401.9 HYPERTENSION NOS 06/19/2016 Ot 414.00 CORON ATHEROSCLER NOS TYPE VESSEL, NATIV 06/19/2016 Ot 433.30 MULT BILTRAL ARTERY OCCLUSION WO CEREBRA 06/19/2016 Ot 440.0 AORTIC ATHEROSCLEROSIS 06/19/2016 Ot 441.4 ABDOM AORTIC ANEURYSM 06/19/2016 Ot 492.8 EMPHYSEMA NEC 06/19/2016 Ot 780.2 SYNCOPE AND COLLAPSE 06/19/2016 Ot 244.9 HYPOTHYROIDISM NOS 06/19/2016 Ot 585.3 CHRONIC KIDNEY DISEASE, STAGE III (MODER 06/19/2016 Ot V10.02 HX-ORAL/PHARYNX MALG NEC 06/19/2016 Ot V10.46 HX-PROSTATIC MALIGNANCY 06/19/2016 Ot V12.61 PERSONAL HISTORY, PNEUMONIA (RECURRENT) 06/19/2016 Ot V58.66 LONG-TERM (CURRENT) USE OF ASPIRIN 06/19/2016 Ot V58.69 OTH MED,LT,CURRENT USE 06/19/2016 Ot V67.1 RADIOTHERAPY FOLLOW-UP 06/19/2016 Ot V67.2 CHEMOTHERAPY FOLLOW-UP 06/19/2016 Ot V72.84 EXAM PRE-OPERATIVE NOS 06/19/2016 Ot V72.84 EXAM PRE-OPERATIVE NOS 06/19/2016 Ot 185 MALIGN NEOPL PROSTATE 06/19/[address]Z, JOSE Granado Ot 486 PNEUMONIA, ORGANISM NOS 06/19/2016 SUNDAR COULTER Ot 272.4 HYPERLIPIDEMIA NEC/NOS 06/19/2016 SUNDAR COULTER Ot 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 06/19/2016 SUNDAR COULTER Ot 397.0 TRICUSPID VALVE DISEASE 06/19/2016 SUNDAR COULTER Ot 401.9 HYPERTENSION NOS 06/19/2016 SUNDAR COULTER Ot 414.00 CORON ATHEROSCLER NOS TYPE VESSEL, NATIV 06/19/2016 SUNDAR COULTER Ot 441.7 THORACOABDOMINAL ANEURYSM WO RUPTURE 06/19/2016 SUNDAR COULTER Ot 793.3 NOSP (ABN) FINDINGS ON RADIOLOGICAL OT 06/19/2016 VENECIA CALVO Ot 244.9 HYPOTHYROIDISM NOS 06/19/2016 VENECIA CALVO Ot 285.9 ANEMIA NOS 06/19/2016 VENECIA CALVO Ot 585.3 CHRONIC KIDNEY DISEASE, STAGE III (MODER 06/19/2016 LUBNA, VENECIA Rahman Ot V10.02 HX-ORAL/PHARYNX MALG NEC 06/19/2016 LUBNAVENECIA Ot V10.46 HX-PROSTATIC MALIGNANCY 06/19/2016 LUBNA, VENECIA Rahman Ot V12.61 PERSONAL HISTORY, PNEUMONIA (RECURRENT) 06/19/2016 LUBNA VENECIA Rahman Ot V58.66 LONG-TERM (CURRENT) USE OF ASPIRIN 06/19/2016 LUBNA VENECIA Rahman Ot V58.69 OTH MED,LT,CURRENT USE 06/19/2016 LUBNA VENECIA Rahman Ot V67.1 RADIOTHERAPY FOLLOW-UP 06/19/2016 VENECIA CALVO Ot V67.2 CHEMOTHERAPY FOLLOW-UP 06/19/2016 JOSE SKAGGS MD Ot 786.7 ABNORMAL CHEST SOUNDS 06/19/2016 JOSE SKAGGS MD Ot 793.19 OTHER NONSPECIFIC ABNORMAL FINDING OF RUBY 06/19/2016 JOSE SKAGGS MD Ot 486 PNEUMONIA, ORGANISM NOS 06/19/2016 JOSE SKAGGS MD Ot 496 CHR AIRWAY OBSTRUCT NEC 06/19/2016 JOSE SKAGGS MD Ot 518.0 PULMONARY COLLAPSE 06/19/2016 JOSE SKAGGS MD Ot 784.2 SWELLING IN HEAD NECK 06/19/2016 JOSE SKAGGS MD Ot 786.2 COUGH 06/19/2016 JOSE SKAGGS MD Ot 793.19 OTHER NONSPECIFIC ABNORMAL FINDING OF RUBY 06/19/2016 JOSE SKAGGS MD Ot V10.89 HX OF MALIGNANCY NEC 06/19/2016 GAURAV HERRERA DO Ot 785.6 ENLARGEMENT LYMPH NODES 06/19/2016 GAURAV HERRERA DO Ot 793.11 SOLITARY PULMONARY NODULE 06/19/2016 GAURAV HERRERA DO Ot 244.9 HYPOTHYROIDISM NOS 06/19/2016 GAURAV HERRERA DO Ot 585.3 CHRONIC KIDNEY DISEASE, STAGE III (MODER 06/19/2016 GAURAV HERRERA DO Ot 786.09 RESPIRATORY ABNORM NEC 06/19/2016 GAURAV HERRERA DO Ot V64.3 NO PROC FOR REASONS NEC 06/19/2016 GAURAV HERRERA DO Ot V72.84 EXAM PRE-OPERATIVE NOS 06/19/2016 GAURAV HERRERA DO Ot 162.9 MAL RODRIGUEZ BRONCH/LUNG NOS 06/19/2016 GAURAV HERRERA DO Ot 162.9 MAL RODRIGUEZ BRONCH/LUNG NOS 06/19/2016 VENECIA CALVO N Ot 162.9 MAL RODRIGUEZ BRONCH/LUNG NOS 06/19/2016 JACK INGRAM LAUNDRY MANAGER Ot 162.9 MAL RODRIGUEZ BRONCH/LUNG NOS 06/19/2016 JOSE SKAGGS MD Ot 285.9 ANEMIA NOS 06/19/2016 Ot 492.8 EMPHYSEMA NEC 06/19/2016 Ot 515 POSTINFLAM PULM FIBROSIS 06/19/2016 LORI BAIRD MD Ot 709.9 SKIN DISORDER NOS 06/19/2016 LORI BAIRD MD Ot V72.84 EXAM PRE-OPERATIVE NOS 06/19/2016 JACK INGRAM S LAUNDRY MANAGER Ot 162.5 MAL RODRIGUEZ LOWER LOBE LUNG 06/19/2016 JACK INGRAM S LAUNDRY MANAGER Ot 170.1 MALIGNANT RODRIGUEZ MANDIBLE 06/19/2016 JACK INGRAM S LAUNDRY MANAGER Ot 196.0 MAL RODRIGUEZ LYMPH-HEAD/NECK 06/19/2016 JACK INGRAM S LAUNDRY MANAGER Ot 244.1 POSTABLAT HYPOTHYR NEC 06/19/2016 JACK INGRAM S LAUNDRY MANAGER Ot 280.9 IRON DEFIC ANEMIA NOS 06/19/2016 JACK INGRAM S LAUNDRY MANAGER Ot 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 06/19/2016 JACK INGRAM S LAUNDRY MANAGER Ot V10.46 HX-PROSTATIC MALIGNANCY 06/19/2016 JACK INGRAM S LAUNDRY MANAGER Ot V15.3 HX OF IRRADIATION 06/19/2016 JACK INGRAM S LAUNDRY MANAGER Ot V58.69 OT MED,LT,CURRENT USE 06/19/2016 OLI RDZ, LORI Jordan Ot L98.9 DISORDER OF THE SKIN AND SUBCUTANEOUS TI 06/19/2016 LORI BAIRD MD Ot Z01.818 ENCOUNTER FOR OTHER PREPROCEDURAL EXAMIN 06/19/2016 LORI BAIRD MD Ot Z11.2 ENCOUNTER FOR SCREENING FOR OTHER BACTER 06/19/2016 JOSE SKAGGS MD Ot 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, 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 06/19/2016 JACK INGRAM S LAUNDRY MANAGER Ot 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 06/19/2016 JACK INGRAM S LAUNDRY MANAGER Ot C61 MALIGNANT NEOPLASM OF PROSTATE 06/19/2016 JACK INGRAM S LAUNDRY MANAGER Ot 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 CHRONIC KIDNEY DISEASE 06/19/2016 JACK INGRAM LAUNDRY MANAGER Ot E03.9 HYPOTHYROIDISM, UNSPECIFIED 06/19/2016 JACK INGRAM LAUNDRY MANAGER Ot N18.3 CHRONIC KIDNEY DISEASE, STAGE 3 ( MODERAT 06/19/2016 JACK INGRAM LAUNDRY MANAGER Ot 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 06/19/2016 JOSE SKAGGS MD Ot R05 COUGH 06/19/2016 JOSE SKAGGS MD Ot R06.00 DYSPNEA, UNSPECIFIED 06/19/2016 JOSE SKAGGS MD Ot J44.9 CHRONIC OBSTRUCTIVE PULMONARY DISEASE, U 06/19/2016 JOSE SKAGGS MD Ot J90 PLEURAL EFFUSION, NOT ELSEWHERE CLASSIFI 06/19/2016 JOSE SKAGGS MD Ot J98.4 OTHER DISORDERS OF LUNG 06/19/2016 JOSE SKAGGS MD Ot R91.8 OTHER NONSPECIFIC ABNORMAL FINDING OF [place] 06/19/2016 JACK INGRAM LAUNDRY MANAGER Ot 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 06/19/2016 JACK INGRAM LAUNDRY MANAGER Ot C61 MALIGNANT NEOPLASM OF PROSTATE 06/19/2016 JACK INGRAMP Ot 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, WITHOU 06/19/2016 JACK INGRAM LAUNDRY MANAGER Ot J43.9 EMPHYSEMA, UNSPECIFIED 06/19/2016 JACK INGRAM LAUNDRY MANAGER Ot J90 PLEURAL EFFUSION, NOT ELSEWHERE CLASSIFI 06/19/2016 AIME INGRAMAVE Dannie LAUNDRY MANAGER Ot K57.30 DVRTCLOS OF LG INT 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 OR AB 06/19/2016 JACK INGRAM LAUNDRY MANAGER Ot R59.0 LOCALIZED ENLARGED LYMPH NODES 06/19/2016 JACK INGRAM LAUNDRY MANAGER Ot 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 06/19/2016 JACK INGRAM LAUNDRY MANAGER Ot R63.4 ABNORMAL WEIGHT LOSS 06/19/2016 AINSLEY KIRBY APRN Ot G47.34 IDIO SLEEP RELATED NONOBSTRUCTIVE ALVEOL 06/19/2016 AINSLEY KIRBY APRN Ot J84.9 INTERSTITIAL PULMONARY DISEASE, UNSPECIF 06/19/2016 AINSLEY KIRBY APRN Ot R06.02 SHORTNESS OF BREATH 06/19/2016 AINSLEY KIRBY APRN Ot J84.9 INTERSTITIAL PULMONARY DISEASE, UNSPECIF 06/19/2016 AINSLEY KIRBY TECHNICAL SYSTEMS ARCHITECT Ot R06.02 SHORTNESS OF BREATH 06/19/2016 VENECIA CALVO Lacey Ot 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 06/19/2016 VENECIA CALVO Lacey Ot C61 MALIGNANT NEOPLASM OF PROSTATE 06/19/2016 VENECIA CALVO Ot 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 CHRONIC KIDNEY DISEASE 06/19/2016 VENECIA CALVO Lacey Ot E03.9 HYPOTHYROIDISM, UNSPECIFIED 06/19/2016 VENECIA CALVO Lacey Ot N18.3 CHRONIC KIDNEY DISEASE, STAGE 3 (MODERAT 06/19/2016 VENECIA CALVO Lacey Ot Z79.899 OTHER USP (CURRENT) DRUG THERAPY 06/20/[address], KENNY P Ot R13.19 OTHER DYSPHAGIA 06/20/[address]Z, KENNY P Ot R13.19 OTHER DYSPHAGIA 07/07/[address], KENNY P Ot R13.19 OTHER DYSPHAGIA 07/13/[address], KENNY P Ot R13.19 OTHER DYSPHAGIA 08/13/2016 AINSLEY KIRBY TECHNICAL SYSTEMS ARCHITECT Ot G47.34 IDIO SLEEP RELATED NONOBSTRUCTIVE ALVEOL 08/13/2016 AINSLEY KIRBY TECHNICAL SYSTEMS ARCHITECT Ot J84.9 INTERSTITIAL PULMONARY DISEASE, UNSPECIF 08/13/2016 AINSLEY KIRBY TECHNICAL SYSTEMS ARCHITECT Ot R06.02 SHORTNESS OF BREATH 08/23/2016 AINSLEY KIRBY TECHNICAL SYSTEMS ARCHITECT Ot G47.34 IDIO SLEEP RELATED NONOBSTRUCTIVE ALVEOL 08/23/2016 AINSLEY KIRBY TECHNICAL SYSTEMS ARCHITECT Ot J84.9 INTERSTITIAL PULMONARY DISEASE, UNSPECIF 08/23/2016 AINSLEY KIRBY TECHNICAL SYSTEMS ARCHITECT Ot R06.02 SHORTNESS OF BREATH 08/23/[address], JOSE Granado Ot J84.9 INTERSTITIAL PULMONARY DISEASE, UNSPECIF 08/24/2016 JACK INGRAM Ot 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 08/24/2016 JACK INGRAM Ot I25.10 ATHSCL HEART DISEASE OF [place] CORONARY 08/24/2016 JACK INGRAMP Ot 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 08/24/2016 JACK INGRAMP Ot J44.9 CHRONIC OBSTRUCTIVE PULMONARY DISEASE, U 08/24/2016 INGRAMJACK Pandey LAUNDRY MANAGER Ot R59.0 LOCALIZED ENLARGED LYMPH NODES 08/24/2016 INGRAMAIMEAVE Pandey LAUNDRY MANAGER Ot R94.8 ABNORMAL RESULTS OF FUNCTION STUDIES OF 09/13/2016 INGRAMAIMEAVE Dannie LAUNDRY MANAGER Ot 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 09/13/2016 AIME INGRAMAVE Pandey LAUNDRY MANAGER Ot I25.10 ATHSCL HEART DISEASE OF [place] CORONARY 09/13/2016 JACK INGRAM LAUNDRY MANAGER Ot 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 09/13/2016 JACK INGRAMP Ot J44.9 CHRONIC OBSTRUCTIVE PULMONARY DISEASE, U 09/13/2016 INGRAMAIMEAVE Dannie EUCEDAP Ot R59.0 LOCALIZED ENLARGED LYMPH NODES 09/13/2016 AIME INGRAMAVE Dannie LAUNDRY MANAGER Ot R94.8 ABNORMAL RESULTS OF FUNCTION STUDIES OF 09/21/2016 AINSLEY KIRBY APRN Ot G47.34 IDIO SLEEP RELATED NONOBSTRUCTIVE ALVEOL 09/21/2016 AINSLEY KIRBY APRN Ot J84.9 INTERSTITIAL PULMONARY DISEASE, UNSPECIF 09/21/2016 AINSLEY KIRBY APRN Ot R06.02 SHORTNESS OF BREATH 09/26/2016 VENECIA CALVO Ot D50.9 IRON DEFICIENCY ANEMIA, UNSPECIFIED 09/26/2016 VENECIA CALVO Ot E89.0 POSTPROCEDURAL HYPOTHYROIDISM 09/26/2016 VENECIA CALVO Ot 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, WITHOU 09/26/2016 VENECIA CALVO Ot J43.9 EMPHYSEMA, UNSPECIFIED 09/26/2016 VENECIA CALVO Ot J90 PLEURAL EFFUSION, NOT ELSEWHERE CLASSIFI 09/26/2016 VENECIA CALVO Ot K57.30 DVRTCLOS OF LG INT 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 OR AB 09/26/2016 VENECIA CALVO Ot N18.3 CHRONIC KIDNEY DISEASE, STAGE 3 (MODERAT 09/26/2016 VENECIA CALVO Ot R59.0 LOCALIZED ENLARGED LYMPH NODES 09/26/2016 VENECIA CALVO Ot Z08 ENCNTR FOR FOLLOW-UP EXAM AFTER TRTMT FO 09/26/2016 VENECIA CALVO Ot Z79.899 OTHER USP (CURRENT) DRUG THERAPY 09/26/2016 VENECIA CALVO Ot Z85.46 PERSONAL HISTORY OF MALIGNANT NEOPLASM O 09/26/2016 VENECIA CALVO Ot Z85.818 PRSNL HX OF MALIG NEOPLM OF SITE OF LIP, 09/26/2016 VENECIA CALVO Ot Z92.21 PERSONAL HISTORY OF ANTINEOPLASTIC CHEMO 09/26/2016 VENECIA CALVO Ot Z92.3 PERSONAL HISTORY OF IRRADIATION 10/18/[address], KENNY Mcgregor Ot R13.19 OTHER DYSPHAGIA 11/01/2016 VENECIA CALVO Ot D50.9 IRON DEFICIENCY ANEMIA, UNSPECIFIED 11/01/2016 VENECIA CALVO Ot E89.0 POSTPROCEDURAL HYPOTHYROIDISM 11/01/2016 VENECIA CALVO Ot 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, WITHOU 11/01/2016 VNEECIA CALVO Ot J43.9 EMPHYSEMA, UNSPECIFIED 11/01/2016 VENECIA CALVO Ot J90 PLEURAL EFFUSION, NOT ELSEWHERE CLASSIFI 11/01/2016 VENECIA CALVO Ot K57.30 DVRTCLOS OF LG INT 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 OR AB 11/01/2016 VENECIA CALVO Ot N18.3 CHRONIC KIDNEY DISEASE, STAGE 3 (MODERAT 11/01/2016 VENECIA CALVO Ot R59.0 LOCALIZED ENLARGED LYMPH NODES 11/01/2016 VENECIA CALVO Ot Z08 ENCNTR FOR FOLLOW-UP EXAM AFTER TRTMT FO 11/01/2016 VENECIA CALVO Ot 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 11/01/2016 VENECIA CALVO Ot Z85.46 PERSONAL HISTORY OF MALIGNANT NEOPLASM O 11/01/2016 VENECIA CALVO Ot Z85.818 PRSNL HX OF MALIG NEOPLM OF SITE OF LIP, 11/01/2016 VENECIA CALVO Ot Z92.21 PERSONAL HISTORY OF ANTINEOPLASTIC CHEMO 11/01/2016 VENECIA CALVO Ot Z92.3 PERSONAL HISTORY OF IRRADIATION 11/02/2016 VENECIA CALVO Ot D50.9 IRON DEFICIENCY ANEMIA, UNSPECIFIED 11/02/2016 VENECIA CALVO Ot E89.0 POSTPROCEDURAL HYPOTHYROIDISM 11/02/2016 VENECIA CALVO N Ot 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, WITHOU 11/02/2016 LUBNA VENECIA Rahman Ot J43.9 EMPHYSEMA, UNSPECIFIED 11/02/2016 LUBNAVENECIA N Ot J90 PLEURAL EFFUSION, NOT ELSEWHERE CLASSIFI 11/02/2016 LUBNAVENECIA Ot K57.30 DVRTCLOS OF LG INT 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 OR AB 11/02/2016 LUBNAVENECIA Ot N18.3 CHRONIC KIDNEY DISEASE, STAGE 3 (MODERAT 11/02/2016 VENECIA CALVO Ot R59.0 LOCALIZED ENLARGED LYMPH NODES 11/02/2016 VENECIA CALVO Ot Z08 ENCNTR FOR FOLLOW-UP EXAM AFTER TRTMT FO 11/02/2016 VENECIA CALVO Ot Z79.899 OTHER USP (CURRENT) DRUG THERAPY 11/02/2016 VENECIA CALVO Ot Z85.46 PERSONAL HISTORY OF MALIGNANT NEOPLASM O 11/02/2016 VENECIA CALVO Ot Z85.818 PRSNL HX OF MALIG NEOPLM OF SITE OF LIP, 11/02/2016 VENECIA CALVO Ot Z92.21 PERSONAL HISTORY OF ANTINEOPLASTIC CHEMO 11/02/2016 VENECIA CALVO Ot Z92.3 PERSONAL HISTORY OF IRRADIATION 11/08/2016 VENECIA CALVO Ot D50.9 IRON DEFICIENCY ANEMIA, UNSPECIFIED 11/08/2016 VENECIA CALVO Ot E89.0 POSTPROCEDURAL HYPOTHYROIDISM 11/08/2016 VENECIA CALVO Ot 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, WITHOU 11/08/2016 VENECIA CALVO Ot J43.9 EMPHYSEMA, UNSPECIFIED 11/08/2016 LUBNAVENECIA Ot J90 PLEURAL EFFUSION, NOT ELSEWHERE CLASSIFI 11/08/2016 VENECIA CALVO Ot K57.30 DVRTCLOS OF LG INT 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 OR AB 11/08/2016 VENECIA CALVO Ot N18.3 CHRONIC KIDNEY DISEASE, STAGE 3 (MODERAT 11/08/2016 VENECIA CALVO Ot R59.0 LOCALIZED ENLARGED LYMPH NODES 11/08/2016 VENECIA CALVO Ot Z08 ENCNTR FOR FOLLOW-UP EXAM AFTER TRTMT FO 11/08/2016 VENECIA CALVO Ot 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 11/08/2016 VENECIA CALVO Ot Z85.46 PERSONAL HISTORY OF MALIGNANT NEOPLASM O 11/08/2016 VENECIA CALVO Ot Z85.818 PRSNL HX OF MALIG NEOPLM OF SITE OF LIP, 11/08/2016 VENECIA CALVO Ot Z92.21 PERSONAL HISTORY OF ANTINEOPLASTIC CHEMO 11/08/2016 VENECIA CALVO Ot Z92.3 PERSONAL HISTORY OF IRRADIATION 11/10/[address], KENNY Mcgregor Ot R13.12 DYSPHAGIA, OROPHARYNGEAL PHASE 11/10/2016 KENNY LIGHT MD Ot Z85.818 PRSNL HX OF MALIG NEOPLM OF SITE OF LIP , 11/20/2016 AINSLEY KIRBY APRN Ot G47.34 IDIO SLEEP RELATED NONOBSTRUCTIVE ALVEOL 11/20/2016 AINSLEY KIRBY TECHNICAL SYSTEMS ARCHITECT Ot J84.9 INTERSTITIAL PULMONARY DISEASE, UNSPECIF 11/20/2016 AINSLEY KIRBY TECHNICAL SYSTEMS ARCHITECT Ot R06.02 SHORTNESS OF BREATH 11/21/2016 AINSLEY KIRBY TECHNICAL SYSTEMS ARCHITECT Ot G47.34 IDIO SLEEP RELATED NONOBSTRUCTIVE ALVEOL 11/21/2016 AINSLEY KIRBY APRN Ot J84.9 INTERSTITIAL PULMONARY DISEASE, UNSPECIF 11/21/2016 AINSLEY KIRBY TECHNICAL SYSTEMS ARCHITECT Ot R06.02 SHORTNESS OF BREATH 11/27/2016 VENECIA CALVO Ot D50.9 IRON DEFICIENCY ANEMIA, UNSPECIFIED 11/27/2016 VENECIA CALVO Ot E89.0 POSTPROCEDURAL HYPOTHYROIDISM 11/27/2016 VENECIA CALVO Ot 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, WITHOU 11/27/2016 VENECIA CALVO Ot J43.9 EMPHYSEMA, UNSPECIFIED 11/27/2016 VENECIA CALVO Ot J90 PLEURAL EFFUSION, NOT ELSEWHERE CLASSIFI 11/27/2016 VENECIA CALVO Ot K57.30 DVRTCLOS OF LG INT 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 OR AB 11/27/2016 VENECIA CALVO Ot N18.3 CHRONIC KIDNEY DISEASE, STAGE 3 (MODERAT 11/27/2016 VENECIA CALVO Ot R59.0 LOCALIZED ENLARGED LYMPH NODES 11/27/2016 LUBNAVENECIA Ot Z08 ENCNTR FOR FOLLOW-UP EXAM AFTER TRTMT FO 11/27/2016 LUBNAVENECIA Ot Z79.899 OTHER USP (CURRENT) DRUG THERAPY 11/27/2016 LUBNA, VENECIA Rahman Ot Z85.46 PERSONAL HISTORY OF MALIGNANT NEOPLASM O 11/27/2016 LUBNA VENECIA Rahman Ot Z85.818 PRSNL HX OF MALIG NEOPLM OF SITE OF LIP, 11/27/2016 LUBNAVENECIA Ot Z92.21 PERSONAL HISTORY OF ANTINEOPLASTIC CHEMO 11/27/2016 LUBNAVENECIA Ot Z92.3 PERSONAL HISTORY OF IRRADIATION 12/21/2016 VENECIA CALVO Ot D50.9 IRON DEFICIENCY ANEMIA, UNSPECIFIED 12/21/2016 VENECIA CALVO Ot E89.0 POSTPROCEDURAL HYPOTHYROIDISM 12/21/2016 VENECIA CALVO Ot 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, WITHOU 12/21/2016 VENECIA CALVO Ot J43.9 EMPHYSEMA, UNSPECIFIED 12/21/2016 VENECIA CALVO Ot J90 PLEURAL EFFUSION, NOT ELSEWHERE CLASSIFI 12/21/2016 VENECIA CALVO Ot K57.30 DVRTCLOS OF LG INT 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 OR AB 12/21/2016 VENECIA CALVO Ot N18.3 CHRONIC KIDNEY DISEASE, STAGE 3 (MODERAT 12/21/2016 VENECIA CALVO Ot R59.0 LOCALIZED ENLARGED LYMPH NODES 12/21/2016 VENECIA CALVO Ot Z08 ENCNTR FOR FOLLOW-UP EXAM AFTER TRTMT FO 12/21/2016 VENECIA CALVO Ot 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 12/21/2016 LUBNAVENECIA Ot Z85.46 PERSONAL HISTORY OF MALIGNANT NEOPLASM O 12/21/2016 VENECIA CALVO Ot Z85.818 PRSNL HX OF MALIG NEOPLM OF SITE OF LIP, 12/21/2016 LUBNAVENECIA Ot Z92.21 PERSONAL HISTORY OF ANTINEOPLASTIC CHEMO 12/21/2016 LUBNAVENECIA Ot Z92.3 PERSONAL HISTORY OF IRRADIATION 02/07/2017 VENECIA CALVO Ot D50.9 IRON DEFICIENCY ANEMIA, UNSPECIFIED 02/07/2017 LUBNA, VENECIA Rahman Ot E89.0 POSTPROCEDURAL HYPOTHYROIDISM 02/07/2017 LUBNAVENECIA Ot 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, WITHOU 02/07/2017 LUBNAVENECIA Ot J43.9 EMPHYSEMA, UNSPECIFIED 02/07/2017 LUBNA, VENECIA Rahman Ot J90 PLEURAL EFFUSION, NOT ELSEWHERE CLASSIFI 02/07/2017 VENECIA CALVO Ot K57.30 DVRTCLOS OF LG INT 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 OR AB 02/07/2017 LUBNAVENECIA Ot N18.3 CHRONIC KIDNEY DISEASE, STAGE 3 (MODERAT 02/07/2017 VENECIA CALVO Ot R59.0 LOCALIZED ENLARGED LYMPH NODES 02/07/2017 VENECIA CALVO Ot Z08 ENCNTR FOR FOLLOW-UP EXAM AFTER TRTMT FO 02/07/2017 VENECIA CALVO Ot 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 02/07/2017 VENECIA CALVO Ot Z85.46 PERSONAL HISTORY OF MALIGNANT NEOPLASM O 02/07/2017 VENECIA CALVO Ot Z85.818 PRSNL HX OF MALIG NEOPLM OF SITE OF LIP, 02/07/2017 VENECIA CALVO Ot Z92.21 PERSONAL HISTORY OF ANTINEOPLASTIC CHEMO 02/07/2017 VENECIA CALVO Ot Z92.3 PERSONAL HISTORY OF IRRADIATION 02/13/2017 AINSLEY KIRBY APRN Ot G47.34 IDIO SLEEP RELATED NONOBSTRUCTIVE ALVEOL 02/13/2017 AINSLEY KIRBY APRN Ot J84.9 INTERSTITIAL PULMONARY DISEASE, UNSPECIF 02/13/2017 AINSLEY KIRBY TECHNICAL SYSTEMS ARCHITECT Ot R06.02 SHORTNESS OF BREATH 02/27/2017 VENECIA CALVO Ot D50.9 IRON DEFICIENCY ANEMIA, UNSPECIFIED 02/27/2017 VENECIA CALVO Ot E89.0 POSTPROCEDURAL HYPOTHYROIDISM 02/27/2017 VENECIA CALVO Ot 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, WITHOU 02/27/2017 VENECAI CALVO Ot J43.9 EMPHYSEMA, UNSPECIFIED 02/27/2017 VENECIA CALVO Ot J90 PLEURAL EFFUSION, NOT ELSEWHERE CLASSIFI 02/27/2017 VENECIA CALVO Ot K57.30 DVRTCLOS OF LG INT 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 OR AB 02/27/2017 LUBNA VENECIA N Ot N18.3 CHRONIC KIDNEY DISEASE, STAGE 3 (MODERAT 02/27/2017 LUBNAVENECIA N Ot R59.0 LOCALIZED ENLARGED LYMPH NODES 02/27/2017 LUBNAVENECIA Ot Z08 ENCNTR FOR FOLLOW-UP EXAM AFTER TRTMT FO 02/27/2017 VENECIA CALVO Ot 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 02/27/2017 VENECIA CALVO N Ot Z85.46 PERSONAL HISTORY OF MALIGNANT NEOPLASM O 02/27/2017 VENECIA CALVO N Ot Z85.818 PRSNL HX OF MALIG NEOPLM OF SITE OF LIP, 02/27/2017 LUBNAVENECIA Ot Z92.21 PERSONAL HISTORY OF ANTINEOPLASTIC CHEMO 02/27/2017 LUBNAVENECIA N Ot Z92.3 PERSONAL HISTORY OF IRRADIATION 03/20/2017 VENECIA CALVO Ot D50.9 IRON DEFICIENCY ANEMIA, UNSPECIFIED 03/20/2017 VENECIA CALVO N Ot E89.0 POSTPROCEDURAL HYPOTHYROIDISM 03/20/2017 LUBNAVENECIA N Ot 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, WITHOU 03/20/2017 VENECIA CALVO Ot J43.9 EMPHYSEMA, UNSPECIFIED 03/20/2017 LUBNAVENECIA N Ot J90 PLEURAL EFFUSION, NOT ELSEWHERE CLASSIFI 03/20/2017 VENECIA CALVO Ot K57.30 DVRTCLOS OF LG INT 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 OR AB 03/20/2017 LUBNAVENECIA Ot N18.3 CHRONIC KIDNEY DISEASE, STAGE 3 (MODERAT 03/20/2017 LUBNAVENECIA N Ot R59.0 LOCALIZED ENLARGED LYMPH NODES 03/20/2017 VENECIA CALVO Ot Z08 ENCNTR FOR FOLLOW-UP EXAM AFTER TRTMT FO 03/20/2017 VNEECIA CALVO N Ot 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 03/20/2017 VENECIA CALVO N Ot Z85.46 PERSONAL HISTORY OF MALIGNANT NEOPLASM O 03/20/2017 VENECIA CALVO N Ot Z85.818 PRSNL HX OF MALIG NEOPLM OF SITE OF LIP, 03/20/2017 VENECIA CALVO Ot Z92.21 PERSONAL HISTORY OF ANTINEOPLASTIC CHEMO 03/20/2017 VENECIA CALVO Ot Z92.3 PERSONAL HISTORY OF IRRADIATION 05/13/2017 AINSLEY KIRBY APRN Ot G47.34 IDIO SLEEP RELATED NONOBSTRUCTIVE ALVEOL 05/13/2017 AINSLEY KIRBY TECHNICAL SYSTEMS ARCHITECT Ot J84.9 INTERSTITIAL PULMONARY DISEASE, UNSPECIF 05/13/2017 AISNLEY KIRBY TE[employer]ICAL SYSTEMS ARCHITECT Ot R06.02 SHORTNESS OF BREATH 05/13/2017 VENECIA CALVO Ot D50.9 IRON DEFICIENCY ANEMIA, UNSPECIFIED 05/13/2017 VENECIA CALVO Ot E89.0 POSTPROCEDURAL HYPOTHYROIDISM 05/13/2017 VENECIA CALVO Ot 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, WITHOU 05/13/2017 VENECIA CALVO Ot J43.9 EMPHYSEMA, UNSPECIFIED 05/13/2017 VENECIA CALVO Ot J90 PLEURAL EFFUSION, NOT ELSEWHERE CLASSIFI 05/13/2017 VENECIA CALVO Ot K57.30 DVRTCLOS OF LG INT 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 OR AB 05/13/2017 VENECIA CALVO Ot N18.3 CHRONIC KIDNEY DISEASE, STAGE 3 (MODERAT 05/13/2017 VENECIA CALVO Ot R59.0 LOCALIZED ENLARGED LYMPH NODES 05/13/2017 EVNECIA CAVLO Ot Z08 ENCNTR FOR FOLLOW-UP EXAM AFTER TRTMT FO 05/13/2017 VENECIA CALVO Ot Z79.899 OTHER USP (CURRENT) DRUG THERAPY 05/13/2017 VENECIA CALVO Ot Z85.46 PERSONAL HISTORY OF MALIGNANT NEOPLASM O 05/13/2017 VENECIA CALVO Ot Z85.818 PRSNL HX OF MALIG NEOPLM OF SITE OF LIP, 05/13/2017 VENECIA CALVO Ot Z92.21 PERSONAL HISTORY OF ANTINEOPLASTIC CHEMO 05/13/2017 VENECIA CALVO Ot Z92.3 PERSONAL HISTORY OF IRRADIATION 05/30/2017 VENECIA CALVO Ot D50.9 IRON DEFICIENCY ANEMIA, UNSPECIFIED 05/30/2017 VENECIA CALVO Ot E89.0 POSTPROCEDURAL HYPOTHYROIDISM 05/30/2017 VENECIA CALVO Ot 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, WITHOU 05/30/2017 VENECIA CALVO Ot J43.9 EMPHYSEMA, UNSPECIFIED 05/30/2017 LUBNAVENECIA SMYTH N Ot J90 PLEURAL EFFUSION, NOT ELSEWHERE CLASSIFI 05/30/2017 VENECIA CALVO Ot K57.30 DVRTCLOS OF LG INT 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 05/30/2017 VENECIA CALVO Ot N18.3 CHRONIC KIDNEY DISEASE, STAGE 3 (MODERAT 05/30/2017 VENECIA CALVO Ot R59.0 LOCALIZED ENLARGED LYMPH NODES 05/30/2017 VENECIA CALVO Ot Z08 ENCNTR FOR FOLLOW-UP EXAM AFTER TRTMT FO 05/30/2017 VENECIA CALVO Ot Z79.899 OTHER USP (CURRENT) DRUG THERAPY 05/30/2017 VENECIA CALVO Ot Z85.46 PERSONAL HISTORY OF MALIGNANT NEOPLASM O 05/30/2017 VENECIA CALVO Ot Z85.818 PRSNL HX OF MALIG NEOPLM OF SITE OF LIP, 05/30/2017 VENECIA CALVO Ot Z92.21 PERSONAL HISTORY OF ANTINEOPLASTIC CHEMO 05/30/2017 VENECIA CALVO Ot Z92.3 PERSONAL HISTORY OF IRRADIATION 06/18/2017 VENECIA CALVO Ot D50.9 IRON DEFICIENCY ANEMIA, UNSPECIFIED 06/18/2017 VENECIA CALVO Ot E89.0 POSTPROCEDURAL HYPOTHYROIDISM 06/18/2017 VENECIA CALVO Ot 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, WITHOU 06/18/2017 VENECIA CALVO Ot J43.9 EMPHYSEMA, UNSPECIFIED 06/18/2017 VENECIA CALVO Ot J90 PLEURAL EFFUSION, NOT ELSEWHERE CLASSIFI 06/18/2017 VENECIA CALVO Ot K57.30 DVRTCLOS OF LG INT 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 OR AB 06/18/2017 VENECIA CALVO Ot N18.3 CHRONIC KIDNEY DISEASE, STAGE 3 (MODERAT 06/18/2017 VENECIA CALVO Ot R59.0 LOCALIZED ENLARGED LYMPH NODES 06/18/2017 VENECIA CALVO Ot Z08 ENCNTR FOR FOLLOW-UP EXAM AFTER TRTMT FO 06/18/2017 LUBNA VENECIA Rahman Ot 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 06/18/2017 LUBNA, VENECIA Rahman Ot Z85.46 PERSONAL HISTORY OF MALIGNANT NEOPLASM O 06/18/2017 LUBNA VENECIA Rahman Ot Z85.818 PRSNL HX OF MALIG NEOPLM OF SITE OF LIP, 06/18/2017 LUBNA VENECIA Rahman Ot Z92.21 PERSONAL HISTORY OF ANTINEOPLASTIC CHEMO 06/18/2017 LUBNAVENECIA Ot Z92.3 PERSONAL HISTORY OF IRRADIATION 06/20/2017 KAYLYNN ZARATE TECHNICAL SYSTEMS ARCHITECT Ot R91.8 OTHER NONSPECIFIC ABNORMAL FINDING OF RUBY 06/23/2017 LUBNAVENECIA Ot D50.9 IRON DEFICIENCY ANEMIA, UNSPECIFIED 06/23/2017 VENECIA CALVO Ot E89.0 POSTPROCEDURAL HYPOTHYROIDISM 06/23/2017 VENECIA CALVO Ot 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, WITHOU 06/23/2017 VENECIA CALVO Ot J43.9 EMPHYSEMA, UNSPECIFIED 06/23/2017 VENECIA CALVO Ot J90 PLEURAL EFFUSION, NOT ELSEWHERE CLASSIFI 06/23/2017 VENECIA CALVO Ot K57.30 DVRTCLOS OF LG INT 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 OR AB 06/23/2017 LUBNAVENECIA Ot N18.3 CHRONIC KIDNEY DISEASE, STAGE 3 (MODERAT 06/23/2017 LUBNAVENECIA Ot R59.0 LOCALIZED ENLARGED LYMPH NODES 06/23/2017 VENECIA CALVO Ot Z08 ENCNTR FOR FOLLOW-UP EXAM AFTER TRTMT FO 06/23/2017 VENECIA CALVO Ot 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 06/23/2017 ULBNAVENECIA Ot Z85.46 PERSONAL HISTORY OF MALIGNANT NEOPLASM O 06/23/2017 LUBNAVENECIA Ot Z85.818 PRSNL HX OF MALIG NEOPLM OF SITE OF LIP, 06/23/2017 LUBNAVENECIA Ot Z92.21 PERSONAL HISTORY OF ANTINEOPLASTIC CHEMO 06/23/2017 LUBNAVENECIA Ot Z92.3 PERSONAL HISTORY OF IRRADIATION 06/24/2017 KAYLYNN ZARATE TECHNICAL SYSTEMS ARCHITECT Ot R91.8 OTHER NONSPECIFIC ABNORMAL FINDING OF RUBY 06/27/2017 KAYLYNN ZARATE TECHNICAL SYSTEMS ARCHITECT Ot J18.9 PNEUMONIA, UNSPECIFIED ORGANISM 06/28/2017 VENECIA CALVO Ot D50.9 IRON DEFICIENCY ANEMIA, UNSPECIFIED 06/28/2017 VENECIA CALVO Ot E89.0 POSTPROCEDURAL HYPOTHYROIDISM 06/28/2017 VENECIA CALVO N Ot 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, WITHOU 06/28/2017 VENECIA CALVO Ot J43.9 EMPHYSEMA, UNSPECIFIED 06/28/2017 VENECIA CALVO Ot J90 PLEURAL EFFUSION, NOT ELSEWHERE CLASSIFI 06/28/2017 VENECIA CALVO Ot K57.30 DVRTCLOS OF LG INT 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 OR AB 06/28/2017 VENECIA CALVO Ot N18.3 CHRONIC KIDNEY DISEASE, STAGE 3 (MODERAT 06/28/2017 VENECIA CALVO Ot R59.0 LOCALIZED ENLARGED LYMPH NODES 06/28/2017 VENECIA CALVO Ot Z08 ENCNTR FOR FOLLOW-UP EXAM AFTER TRTMT FO 06/28/2017 VENECIA CALVO Ot Z79.899 OTHER USP (CURRENT) DRUG THERAPY 06/28/2017 VENECIA CALVO N Ot Z85.46 PERSONAL HISTORY OF MALIGNANT NEOPLASM O 06/28/2017 VENECIA CALVO Ot Z85.818 PRSNL HX OF MALIG NEOPLM OF SITE OF LIP, 06/28/2017 VENECIA CALVO N Ot Z92.21 PERSONAL HISTORY OF ANTINEOPLASTIC CHEMO 06/28/2017 VENECIA CALVO Ot Z92.3 PERSONAL HISTORY OF IRRADIATION 07/10/2017 KAYLYNN ZARATE TECHNICAL SYSTEMS ARCHITECT Ot R91.8 OTHER NONSPECIFIC ABNORMAL FINDING OF RUBY 07/18/2017 KAYLYNN ZARATE TECHNICAL SYSTEMS ARCHITECT Ot J18.9 PNEUMONIA, UNSPECIFIED ORGANISM 08/03/2017 VENECIA CALVO Ot D50.9 IRON DEFICIENCY ANEMIA, UNSPECIFIED 08/03/2017 VENECIA CALVO Ot E89.0 POSTPROCEDURAL HYPOTHYROIDISM 08/03/2017 VENECIA CALVO N Ot 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, WITHOU 08/03/2017 VENECIA CALVO Ot J43.9 EMPHYSEMA, UNSPECIFIED 08/03/2017 VENECIA CALVO Ot J90 PLEURAL EFFUSION, NOT ELSEWHERE CLASSIFI 08/03/2017 VENECIA CALVO Lacey Ot K57.30 DVRTCLOS OF LG INT 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 OR AB 08/03/2017 VENECIA CALVO Lacey Ot N18.3 CHRONIC KIDNEY DISEASE, STAGE 3 (MODERAT 08/03/2017 VENECIA CALVO Lacey Ot R59.0 LOCALIZED ENLARGED LYMPH NODES 08/03/2017 VENECIA CALVO Lacey Ot Z08 ENCNTR FOR FOLLOW-UP EXAM AFTER TRTMT FO 08/03/2017 VENECIA CALVO Lacey Ot Z79.899 OTHER USP (CURRENT) DRUG THERAPY 08/03/2017 VENECIA CALVO Lacey Ot Z85.46 PERSONAL HISTORY OF MALIGNANT NEOPLASM O 08/03/2017 VENECIA CALVO Lacey Ot Z85.818 PRSNL HX OF MALIG NEOPLM OF SITE OF LIP, 08/03/2017 VENECIA CALVO Lacey Ot Z92.21 PERSONAL HISTORY OF ANTINEOPLASTIC CHEMO 08/03/2017 VENECIA CALVO Lacey Ot Z92.3 PERSONAL HISTORY OF IRRADIATION Procedures Code Description Performed By Performed On 3304/30/2014 Results Test Result Range THYROID STIMULATING HORMONE - 05/17/17 11:43 THYROID STIMULATING HORMONE 4.49 u[iU]/mL 0.35-4.94 Encounters ACCT No. Visit Date/Time Discharge Status Pt. Type Provider Facility Loc./Unit Complaint [id number] 08/09/2017 10:33:00 2016 23:59:59 CLS Outpatient LUBNAVENECIA Lacey [facility] ONC [id number] 06/26/2017 11:40:00 2016 23:59:59 CLS Outpatient KAYLYNN ZARATE TECHNICAL SYSTEMS ARCHITECT [facility] RAD PNEUMONIA [id number] 05/17/2017 11:10:00 2016 00:01:00 DIS Outpatient LUBNAVENECIA Lacey [facility] ONC [id number] 06/18/2017 14:44:00 2016 23:59:59 CLS Outpatient KAYLYNN ZARATE TECHNICAL SYSTEMS ARCHITECT [facility] RAD SOB [id number] 05/14/2017 10:15:00 2016 23:59:59 CLS Preadmit AINSLEY KIRBY APRN [facility] PULM ILD,SOB ON EXERTION, NOCTURNAL HYPOXEMIA [id number] 03/29/2017 10:57:00 2016 00:01:00 DIS Outpatient VENECIA CALVO [facility] ONC [id number] 02/12/2017 09:23:00 2016 00:01:00 DIS Outpatient AINSLEY KIRBY APRN [facility] PULM ILD,SOB ON EXERTION, NOCTURNAL HYPOXEMIA [id number] 11/09/2016 10:52:00 2016 00:01:00 DIS Outpatient VENECIA CALVO [facility] ONC [id number] 11/02/2016 09:00:00 2016 00:01:00 DIS Outpatient AINSLEY KIRBY APRN [facility] PULM ILD,SOB ON EXERTION, NOCTURNAL HYPOXEMIA [id number] 11/10/2016 10:58:00 2016 11:31:00 DIS Outpatient KENNY LIGHT MD [facility] REHAB DYSPHAGIA [id number] 10/17/2016 13:44:00 2016 00:01:00 DIS Outpatient VENECIA CALVO [facility] ONC [id number] 10/17/2016 09:46:00 2016 23:59:59 CLS Outpatient KENNY LIGHT MD [facility] RAD DYSPHAGIA [id number] 08/23/2016 09:36:00 2015 23:59:59 CLS Outpatient JACK INGRAM [facility] RAD ABNORMAL PET SCAN [id number] 08/10/2016 09:00:00 2015 00:01:00 DIS Outpatient AINSLEY KIRBY APRN [facility] PULM ILD,SOB ON EXERTION, NOCTURNAL HYPOXEMIA [id number] 08/02/2016 12:13:00 2015 23:59:59 CLS Outpatient JOSE SKAGGS MD [facility] RAD PNUEMONIA [id number] 06/19/2016 10:03:00 2015 23:59:59 CLS Outpatient KENNY LIGHT MD [facility] RAD R13.19 [id number] 03/21/2016 12:47:00 2015 00:01:00 DIS Outpatient VENECIA CALVO [facility] ONC [id number] 04/28/2016 14:08:00 2015 23:59:59 CLS Outpatient AINSLEY KIRBY APRN [facility] RT ILD,SOB ON EXERTION [id number] 04/04/2016 11:45:00 2015 23:59:59 CLS Outpatient JCAK INGRAM LAUNDRY MANAGER [facility] 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 [id number] 03/23/2016 09:45:00 2015 23:59:59 CLS Outpatient JACK INGRAM LAUNDRY MANAGER [facility] RAD PRIMARY MALIGNANT NEOPLASM, PROSTATE CANCER [id number] 03/15/2016 09:23:00 2015 23:59:59 CLS Outpatient JOSE SKAGGS MD [facility] RAD FOLLOW UP PNEUMONIA [id number] 02/28/2016 13:57:00 2015 23:59:59 CLS Outpatient JOSE SKAGGS MD [facility] RAD COUGH [id number] 02/02/2016 14:44:00 2015 23:59:59 CLS Outpatient JACK INGRAM LAUNDRY MANAGER [facility] ONC [id number] 01/22/2016 08:09:00 2015 10:00:00 DIS Emergency BRITNI HARVEY MD [facility] ER L TOES BLEEDING [id number] 12/16/2015 13:46:00 2015 23:59:59 CLS Outpatient JOSE SKAGGS MD [facility] RAD THORACIC AORTIC ANEURYSM [id number] 10/22/2015 06:00:00 2015 10:15:00 DIS Outpatient LORI BAIRD MD [facility] SDC LESIONS [id number] 10/19/2015 08:05:00 2015 23:59:59 CLS Outpatient LORI BAIRD MD [facility] PREOP LESIONS [id number] 08/05/2015 14:04:00 2014 23:59:59 CLS Outpatient VENECIA CALVO Lacey [facility] ONC [id number] 05/13/2015 09:53:00 2014 00:01:00 DIS Outpatient VENECIA CALVO Lacey [facility] ONC [id number] 05/13/2015 16:00:00 2014 23:59:59 CLS Outpatient JACK INGRAM [facility] ONC [id number] 05/06/2015 09:12:00 2014 00:01:00 DIS Outpatient LUBNAVENECIA Lacey [facility] ONC [id number] 02/17/2015 09:25:00 2014 16:20:00 DIS Outpatient LORI BAIRD MD [facility] SKIN LESION [id number] 02/12/2015 05:52:00 2014 23:59:59 CLS Outpatient LORI BAIRD MD [facility] PREOP SKIN LESION [id number] 02/04/2015 09:50:00 2014 00:01:00 DIS Outpatient LUBNAVENECIA Lacey [facility] ONC [id number] 08/12/2014 10:26:00 2014 00:01:00 DIS Outpatient LUBNAVENECIA Lacey [facility] ONC [id number] 09/12/2014 00:56:00 2013 01:31:00 DIS Emergency VIKI SKAGGS MD [facility] ER NOSE BLEED [id number] 08/19/2014 09:57:00 2013 23:59:59 CLS Outpatient JACK INGRAM [facility] ONC [id number] 08/17/2014 00:10:00 2013 23:59:59 CLS [facility]readmit [facility] [id number] 05/19/2014 08:05:00 2013 00:01:00 DIS Outpatient JOSE SKAGGS MD [facility] ANEMIA [id number] 07/22/2014 10:03:00 2013 23:59:59 CLS Outpatient VENECIA CALVO [facility] ONC [id number] 07/21/2014 11:25:00 2013 23:59:59 CLS Outpatient GAURAV HERRERA DO [facility] RAD SQUAMOUS CELL [id number] 07/14/2014 17:09:00 2013 10:10:00 DIS Inpatient JOSE SKAGGS MD [facility] 4TH SEVERE ANEMIA, FALL, HYPONATREMIA, ZYGOMAI [id number] 07/14/2014 12:48:00 2013 23:59:59 CLS Outpatient GAURAV HERRERA DO [facility] RAD SQAMOUS CELL [id number] 07/01/2014 11:29:00 2013 16:15:00 DIS Outpatient GAURAV HERRERA DO [facility] NECK CANCER [id number] 06/22/2014 11:44:00 2013 23:59:59 CLS Outpatient GAURAV HERRERA DO [facility] CANCER OF NECK [id number] 06/17/2014 09:13:00 2013 23:59:59 CLS Outpatient GAURAV HERRERA DO [facility] PREOP CANCER OF NECK [id number] 06/15/2014 08:31:00 2013 23:59:59 CLS Outpatient GAURAV HERRERA DO [facility] RAD PULMONARY NODULE [id number] 04/28/2014 12:22:00 2013 19:10:00 DIS Inpatient JOSE SKAGGS MD [facility] 4TH PULMONARY EMBOLISM PNEUMONIA [id number] 04/28/2014 07:58:00 2013 23:59:59 CLS Outpatient JOSE SKAGGS MD [facility] RAD ABN CHEST XRAY [id number] 04/27/2014 10:16:00 2013 23:59:59 CLS Outpatient JOSE SKAGGS MD [facility] RAD RAILS LT LUNG [id number] 10/20/2013 13:49:00 2013 23:59:59 CLS Outpatient VENECIA CALVO [facility] ONC [id number] 09/25/2013 09:37:00 2013 13:55:00 DIS Inpatient JOSE SKAGGS MD [facility] 4TH PNEUMONIA UNRESPONSIVE TO OUTPATIENT THERAPY [id number] 06/12/2013 10:50:00 2012 23:59:59 CLS Outpatient SUNDAR COULTER [facility] CARD TAA,AAA,CAD,HTN [id number] 05/07/2013 08:09:00 2012 23:59:59 CLS Outpatient JOSE SKAGGS MD [facility] RAD PNEUMONIA [id number] 04/24/2013 15:36:00 2012 09:30:00 DIS Inpatient JOSE SKAGGS MD [facility] 4TH HYPONATREMIC AND HYPOTENSION [id number] 01/22/2016 09:57:00 Document Registration [id number] 01/22/2016 09:56:00 Document Registration [id number] 01/22/2016 09:56:00 Document Registration [id number] 01/22/2016 09:56:00 Document Registration [id number] 01/22/2016 09:56:00 Document Registration [id number] 11/17/2014 09:35:00 Document Registration [id number] 01/06/2013 07:44:00 Document Registration [id number] 01/02/2013 09:25:00 Document Registration [id number] 12/27/2012 10:38:00 Document Registration [id number] 12/18/2012 08:12:00 Document Registration [id number] 10/14/2012 12:56:00 Document Registration [id number] 08/12/2012 07:35:00 Document Registration [id number] 08/06/2012 18:26:00 Document Registration [id number] 06/05/2012 14:12:00 Document Registration [id number] 05/01/2012 08:25:00 Document Registration [id number] 04/05/2012 07:52:00 Document Registration [id number] 08/31/2011 12:53:00 Document Registration [id number] 05/31/2011 12:12:00 Document Registration [id number] 05/26/2011 08:16:00 Document Registration [id number] 05/20/2011 09:16:00 Document Registration [id number] 05/08/2011 17:39:00 Document Registration [id number] 05/05/2011 09:40:00 Document Registration [id number] 04/19/2011 08:28:00 Document Registration [id number] 04/18/2011 11:16:00 Document Registration [id number] 01/17/2011 12:30:00 Document Registration [id number] 11/30/2010 05:54:00 Document Registration [id number] 11/30/2010 00:00:00 Document Registration [id number] 10/31/2010 08:51:00 Document Registration [id number] 08/31/2010 08:49:00 Document Registration
[2017-08-27] MEDS ORDERED: RT-ALBUTEROL SULF 2.5 MG/3 ML PRE-MIX VIAL INH STA (12:04)
[2017-08-27] MEDS ORDERED: NS IV 500 ML 500 ML IV ONE (12:04)
[2017-08-27 12:12] LABS: BASOPHILS % (AUTO) 0 % (0-10); EOSINOPHILS % (AUTO) 0 % (0-10); LYMPHOCYTES # (AUTO) 0.4 X 10^3 (1.0-4.0); LYMPHOCYTES % (AUTO) 3 % (12-44); MEAN CORPUSCULAR HEMOGLOBIN 27 PG (25-34); MEAN CORPUSCULAR HGB CONC 32 G/DL (32-36); MEAN CORPUSCULAR VOLUME 84 FL (80-99); MEAN PLATELET VOLUME 9.7 FL (7.4-10.4); MONOCYTES # (AUTO) 0.8 X 10^3 (0.0-1.0); MONOCYTES % (AUTO) 6 % (0-12); NEUTROPHILS % (AUTO) 91 % (42-75); PLATELET COUNT 309 10^3/uL (130-400); RED BLOOD COUNT 3.52 10^6/uL (4.35-5.85); RED CELL DISTRIBUTION WIDTH 15.6 % (10.0-14.5); WHITE BLOOD COUNT 13.1 10^3/uL (4.3-11.0)
--- NOTE | 2017-08-27 12:12 | ED Respiratory ---
General Chief Complaint: Chest Pain Stated Complaint: SOB,COPD Source: patient, spouse Exam Limitations: physical impairment (soft palate reconstruction) History of Present Illness Time seen by provider: 11:54 Initial Comments Patient presents to ER by private conveyance with chief complaint that he is having shortness of breath for the past several days but is very getting worse at 4:30 this morning. He is having some pressure in his chest. He has no history of coronary artery disease however he does have a history of COPD he is oxygen-dependent usually on 4 L by nasal cannula. He has not had to use an increasing amount of oxygen however he still feels very short of breath with a nonproductive cough. He feels very weak and tired. No chills, fever, diaphoresis. No nausea. He describes the pressure and pain in the left side of his chest radiating down to his left lower chest. 5 out of 10. He is on chronic prednisone 5 mg daily and it has been several months since he's had to have a burst prednisone therapy. 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 He's had no other surgeries on his chest. Allergies and Home Medications Allergies Coded Allergies: No Known Drug Allergies (Verified , 08/27/17) Home Medications Albuterol Sulfate 2.5 Mg/3 Ml Vial.neb, 2.5 MG IH Q4H PRN for SHORTNESS OF BREATH, (Reported) Albuterol/Ipratropium 4 Gm Aero, 1 PUFF IH QID, (Reported) Alprazolam 0.5 Mg Tablet, 0.5 MG PO BID PRN for ANXIETY, (Reported) Brinzolamide/Brimonidine Tart 8 Ml Drops.susp, 1 DROP OU TID, (Reported) Fluticasone/Salmeterol 1 Each Blst.w.dev, 1 PUFF IH BID, (Reported) Hydrocortisone 20 Mg Tablet, 10 MG PO BID, (Reported) Imipramine HCl 25 Mg Tablet, 25 MG PO DAILY, (Reported) Latanoprost 2.5 Ml Drops, 1 DROP OU HS, (Reported) Levothyroxine Sodium 112 Mcg Tablet, 112 MCG PO DAILY, (Reported) Montelukast Sodium 10 Mg Tablet, 10 MG PO HS, (Reported) Omeprazole 40 Mg Capsule.dr, 40 MG PO DAILY, (Reported) Paroxetine HCl 20 Mg Tablet, 20 MG PO DAILY, (Reported) Prednisone 5 Mg Tablet, 5 MG PO DAILY, (Reported) Rivaroxaban 20 Mg Tablet, 20 MG PO DAILY, (Reported) Constitutional: No chills, No diaphoresis, No fever, malaise, weakness EENTM: No ear pain, No eye pain Respiratory: cough, No phlegm, short of breath, wheezing Cardiovascular: see HPI, chest pain, No edema, No Hx of Intervention, No palpitations, No syncope, No vascular heart diseas Gastrointestinal: No abdominal pain, No constipation, No diarrhea, nausea, vomiting Genitourinary: No discharge, No dysuria Skin: No pruritus, No rash Psychiatric/Neurological: Denies Headache, Denies Numbness, Denies Paresthesia Past Caxdfku-Dzyqxl-Uttykf Hx Patient Social History Alcohol Use: Denies Use Recreational Drug Use: No Smoking Status: Former Smoker Recent Foreign Travel: No Contact w/Someone Who Travel: No Recent Hopitalizations: No Physical Abuse: No Sexual Abuse: No Immunizations Up To Date Tetanus Booster (TDap): More than 5yrs PED Vaccines UTD: Yes Date of Pneumonia Vaccine: Aug 23, 2017 Date of Influenza Vaccine: Aug 23, 2017 Surgeries History of Surgeries: Yes (THROAT/ FOR CA/ RADICAL NECK DISSECTION, BACK SURGERY) Respiratory History of Respiratory Disorde: Yes Respiratory Disorders: Pulmonary Embolism, COPD Cardiovascular History of Cardiac Disorders: Yes (AAA UNABLE TO HAVE FIXED DUE TO POOR HEALTH) Neurological History of Neurological Disord: No Reproductive System Hx Reproductive Disorders: No Sexually Transmitted Disease: No HIV/AIDS: No Genitourinary Genitourinary Disorders: Prostate Problems Gastrointestinal History of Gastrointestinal Di: Yes Gastrointestinal Disorders: Gastroesophageal Reflux, Polyps Musculoskeletal History of Musculoskeletal Dis: Yes (HX OF BACK SURGERY) Musculoskeletal Disorders: Arthritis, Fractures Endocrine History of Endocrine Disorders: Yes (DUE TO CA) Endocrine Disorders: Hypothyroidsim HEENT HEENT Disorders: Cataract Loss of Vision: Left Hearing Impairment: Hard of Hearing, Deaf Cancer History of Cancer: Yes Cancer: Prostate, Oral Psychosocial History of Psychiatric Problem: Yes Behavioral Health Disorders: Anxiety, Depression Suicide Risk Score: 0 Integumentary History of Skin or Integumenta: Yes (SKIN LESIONS) Blood Transfusions History of Blood Disorders: Yes (ANEMIA) Adverse Reaction to a Blood Tr: No Family Medical History Family Medial History: Patient reports no known family medical history. Physical Exam Vital Signs Vital Sign - Last 12Hours Capillary Refill : General Appearance: mild distress, thin Eyes: Bilateral Eye Normal Inspection, Bilateral Eye PERRL, Bilateral Eye EOMI HEENT: PERRL/EOMI, normal ENT inspection, pharynx normal (oral mucosa dry) Neck: supple, normal inspection Respiratory: chest non-tender, respiratory distress (mild), decreased breath sounds (left greater than right), accessory muscle use, wheezing (faint) Cardiovascular: normal peripheral pulses, regular rate, rhythm, no edema Gastrointestinal: normal bowel sounds, non tender, soft Extremities: no pedal edema, normal capillary refill, other (cool fingertips) Neurologic/Psychiatric: alert, normal mood/affect, oriented x 3 Skin: normal color, warm/dry, other (then) Focused Exam Evaluation Sepsis Stage: Sepsis Possible Source: Pulmonary Lactate Level Laboratory Tests 08/27/17 13:10: Lactic Acid Level 1.37 Time of Focused Exam: 12:45 Respiratory: Accessory Muscle Use, Decreased Breath Sounds, Wheezing Cardiovascular: Regular Rate, Rhythm, No Edema, Normal Peripheral Pulses Capillary Refill: Less Than 3 Seconds Peripheral Pulses: 2+ Dorsalis Pedis (R), 2+ Left Dors-Pedis (L), 2+ Radial Pulses (R), 2+ Radial Pulses (L) Skin: normal color, warm/dry Lactic Acid Level Laboratory Tests Test 08/27/17 13:10 Lactic Acid Level 1.37 MMOL/L (0.50-2.00) Progress/Results/Core Measures Suspected Sepsis SIRS Temperature: Pulse: Respiratory Rate: Laboratory Tests 08/27/17 11:55: White Blood Count 13.1H Blood Pressure / Mean: Laboratory Tests 08/27/17 13:10: Lactic Acid Level 1.37 Laboratory Tests 08/27/17 11:55: Creatinine 0.99, INR Comment 2.1H, Platelet Count 309, Total Bilirubin 0.6 Results/Orders Lab Results Laboratory Tests Test 08/27/17 11:55 08/27/17 13:10 Range/Units White Blood Count 13.1 H 4.3-11.0 10^3/uL Red Blood Count 3.52 L 4.35-5.85 10^6/uL Hemoglobin 9.4 L 13.3-17.7 G/DL Hematocrit 30 L 40-54 % Mean Corpuscular Volume 84 80-99 FL Mean Corpuscular Hemoglobin 27 25-34 PG Mean Corpuscular Hemoglobin Concent 32 32-36 G/DL Red Cell Distribution Width 15.6 H 10.0-14.5 % Platelet Count 309 130-400 10^3/uL Mean Platelet Volume 9.7 7.4-10.4 FL Neutrophils (%) (Auto) 91 H 42-75 % Lymphocytes (%) (Auto) 3 L 12-44 % Monocytes (%) (Auto) 6 0-12 % Eosinophils (%) (Auto) 0 0-10 % Basophils (%) (Auto) 0 0-10 % Neutrophils # (Auto) 12.0 H 1.8-7.8 X 10^3 Lymphocytes # (Auto) 0.4 L 1.0-4.0 X 10^3 Monocytes # (Auto) 0.8 0.0-1.0 X 10^3 Eosinophils # (Auto) 0.0 0.0-0.3 10^3/uL Basophils # (Auto) 0.0 0.0-0.1 10^3/uL Neutrophils % (Manual) 86 % Lymphocytes % (Manual) 5 % Monocytes % (Manual) 9 % Eosinophils % (Manual) 0 % Basophils % (Manual) 0 % Band Neutrophils 0 % Anisocytosis SLIGHT Prothrombin Time 23.9 H 12.2-14.7 SEC INR Comment 2.1 H 0.8-1.4 Activated Partial Thromboplast Time 51 H 24-35 SEC Sodium Level 131 L 135-145 MMOL/L Potassium Level 4.1 3.6-5.0 MMOL/L Chloride Level 97 L 98-107 MMOL/L Carbon Dioxide Level 25 21-32 MMOL/L Anion Gap 9 5-14 MMOL/L Blood Urea Nitrogen 21 H 7-18 MG/DL Creatinine 0.99 0.60-1.30 MG/DL Estimat Glomerular Filtration Rate > 60 BUN/Creatinine Ratio 21 Glucose Level 130 H 70-105 MG/DL Calcium Level 8.8 8.5-10.1 MG/DL Magnesium Level 1.7 L 1.8-2.4 MG/DL Total Bilirubin 0.6 0.1-1.0 MG/DL Aspartate Amino Transf (AST/SGOT) 23 5-34 U/L Alanine Aminotransferase (ALT/SGPT) 9 0-55 U/L Alkaline Phosphatase 50 40-136 U/L Troponin I < 0.30 <0.30 NG/ML Total Protein 7.7 6.4-8.2 GM/DL Albumin 3.1 L 3.2-4.5 GM/DL Lactic Acid Level 1.37 0.50-2.00 MMOL/L My Orders Orders - ALEXANDRO CASTREJON Cbc With Automated Diff (08/27/17 12:04) Comprehensive Metabolic Panel (08/27/17 12:04) Magnesium (08/27/17 12:04) Troponin I (08/27/17 12:04) Albuterol Pre-Mix Nebs (Rt) (Proventil (08/27/17 12:04) Albuterol/Ipra Inhalation Soln (Duoneb I (08/27/17 12:15) Saline Lock/Iv-Start (08/27/17 12:04) Ns Iv 500 Ml (Sodium Chloride 0.9%) (08/27/17 12:04) Aspirin Chewable Tablet (Baby Aspirin Ch (08/27/17 12:15) Chest 1 View, Ap/Pa Only (08/27/17 12:04) Manual Differential (08/27/17 11:55) Lactic Acid Analyzer (08/27/17 12:56) Blood Culture (08/27/17 12:56) Sputum Culture (08/27/17 12:56) Ua Culture If Indicated (08/27/17 12:56) Protime With Inr (08/27/17 12:56) Partial Thromboplastin Time (08/27/17 12:56) O2 (08/27/17 12:56) Saline Lock/Iv-Start (08/27/17 12:56) Vital Signs Adult Sepsis Patie Q1H (08/27/17 12:56) Ceftriaxone Injection (Rocephin Injectio (08/27/17 12:56) Remove Rings In Anticipation O (08/27/17 12:56) Ns Iv 1000 Ml (Sodium Chloride 0.9%) (08/27/17 12:56) Magnesium 1 Gm/100 Ml Ivpb (Magnesium Wilson (08/27/17 13:30) Medications Given in ED Current Medications Medications Dose Ordered Sig/Ming Route Start Time Stop Time Status Last Admin Dose Admin Albuterol/ Ipratropium 3 ml ONCE ONCE INH 08/27/17 12:15 08/27/17 12:16 DC 08/27/17 12:42 3 ML Aspirin 162 mg ONCE ONCE PO 08/27/17 12:15 08/27/17 12:16 DC 08/27/17 12:24 162 MG Sodium Chloride 500 ml @ 0 mls/hr Q0M ONCE IV 08/27/17 12:04 08/27/17 12:09 DC 08/27/17 12:24 500 MLS/HR Sodium Chloride 1,000 ml @ 0 mls/hr Q0M ONCE IV 08/27/17 12:56 08/27/17 12:57 DC 08/27/17 13:35 1,000 MLS/HR Vital Signs/I&O Vital Sign - Last 12Hours 08/27/17 08/27/17 08/27/17 08/27/17 11:45 11:45 11:45 12:42 Temp 98.3 Pulse 104 Resp 39 B/P (MAP) 119/83 (95) Pulse Ox 96 96 92 O2 Delivery Nasal Cannula Nasal Cannula Nasal Cannula Nasal Cannula O2 Flow Rate 4.00 4.00 4.00 4.00 Capillary Refill : Progress Note : Time: 12:38 Progress Note COPD exacerbation versus pneumonia. Diminished breath sounds may be due to COPD versus bleb disease versus less likely small pneumothorax. Patient's on 4 L by nasal cannula and satting at 97%. No history to support pulmonary embolism. ECG Initial ECG Impression Date: Aug 27, 2017 Initial ECG Impression Time: 11:46 Initial ECG Rate: 88 Initial ECG Rhythm: S.Tach Initial ECG Intervals: Normal Initial ECG Impression: Normal, Nonspecific Changes Initial ECG Comparisson: No Previous ECG Available Comment Artifact seen. No T-wave elevation or depression. Diagnostic Imaging Diagonstic Imaging: Xray Plain Films/CT/US/NM/MRI: chest (1v) Comments VIA [facility]. [place], [place] NAME: L[address] Loy [facility] REC#: [id number] PT STATUS: REG ER : 1940 PHYSICIAN: ALEXANDRO CASTREJON MD ADMIT DATE: 08/27/17/ER Draft Date of Exam:08/27/17 CHEST 1 VIEW, AP/PA ONLY Portable upright radiograph of the chest. INDICATION: Chest pain. FINDINGS: There are bilateral infiltrates seen in the mid and lower lung zones most prominent in the left perihilar region. There is background chronic-appearing interstitial thickening seen. No effusion or pneumothorax. The heart size appears slightly enlarged. No pneumothorax. IMPRESSION: Bilateral mid and lower lung infiltrates most prominent in the left perihilar region. Dictated on workstation # [id number] Dict: 08/27/17 1232 Trans: 08/27/17 1241 [id number] Interpreted by: NIMA ROBLES MD Electronically signed by: Reviewed: Reviewed by Me Departure Communication (Admissions) Time/Spoke to Admitting Phy: 12:54 Communication Discussed case with Dr. Hoffman and she is okay to see the patient. Discussed antibiotic choice. Impression Impression: Primary Impression: Pneumonia Qualified Codes: J18.9 - Pneumonia, unspecified organism Additional Impressions: COPD (chronic obstructive pulmonary disease) Qualified Codes: J44.0 - Chronic obstructive pulmonary disease with acute lower respiratory infection Sepsis Qualified Codes: A41.9 - Sepsis, unspecified organism Hyponatremia Hypomagnesemia Disposition: ADMITTED INPATIENT Condition: Stable Admissions Decision to Admit Reason: Admit from ER (General) Decision to Admit/Date: Aug 27, 2017 Time/Decision to Admit Time: 12:54 Departure-Patient Inst. Referrals: JOSE SKAGGS MD (PCP/Family) Primary Care Physician Copy Copies To 1: JOSE SKAGGS MD, TITUS J Aug 27, 2017 12:12
[2017-08-27] MEDS ORDERED: RT-ALBUTEROL/IPRATROPIUM 3 ML (DUONEB) VIAL INH ONE (12:15)
[2017-08-27] MEDS ORDERED: ASPIRIN 81 MG CHEW (CHILDREN'S ASA) PO ONE (12:15)
[2017-08-27 12:29] LABS: ALANINE AMINOTRANSFERASE 9 U/L (0-55); ALBUMIN 3.1 GM/DL (3.2-4.5); ANION GAP 9 MMOL/L (5-14); ASPARTATE AMINO TRANSFERASE 23 U/L (5-34); BILIRUBIN,TOTAL 0.6 MG/DL (0.1-1.0); BLOOD UREA NITROGEN 21 MG/DL (7-18); BUN/CREATININE RATIO 21; CALCIUM 8.8 MG/DL (8.5-10.1); CARBON DIOXIDE 25 MMOL/L (21-32); CHLORIDE 97 MMOL/L (98-107); CREATININE SERUM 0.99 MG/DL (0.60-1.30); GFR ESTIMATED > 60; GLUCOSE 130 MG/DL (70-105); MAGNESIUM 1.7 MG/DL (1.8-2.4); POTASSIUM 4.1 MMOL/L (3.6-5.0); SODIUM 131 MMOL/L (135-145); TOTAL PROTEIN 7.7 GM/DL (6.4-8.2)
[2017-08-27 12:35] LABS: TROPONIN I < 0.30 NG/ML (<0.30)
[2017-08-27 12:38] LABS: BAND NEUTROPHILS 0 %; NEUTROPHILS % (MANUAL) 86 %
[2017-08-27 12:39] LABS: ANISOCYTOSIS SLIGHT; BASOPHILS % (MANUAL) 0 %; EOSINOPHILS % (MANUAL) 0 %; LYMPHOCYTES % (MANUAL) 5 %
--- NOTE | 2017-08-27 12:41 | Diagnostic Imaging Report ---
Portable upright radiograph of the chest. INDICATION: Chest pain. FINDINGS: There are bilateral infiltrates seen in the mid and lower lung zones most prominent in the left perihilar region. There is background chronic-appearing interstitial thickening seen. No effusion or pneumothorax. The heart size appears slightly enlarged. No pneumothorax. IMPRESSION: Bilateral mid and lower lung infiltrates most prominent in the left perihilar region. Dictated by: Dictated on workstation # [id number]
[2017-08-27] MEDS ORDERED: cefTRIAXone 1 GM (ROCEPHIN) VIAL IV STA (12:56)
[2017-08-27] MEDS ORDERED: NS IV 1000 ML 1,000 ML IV ONE (12:56)
[2017-08-27 13:05] LABS: INR 2.1 (0.8-1.4); PROTHROMBIN TIME PATIENT 23.9 SEC (12.2-14.7)
[2017-08-27] MEDS ORDERED: MAGNESIUM 1 GM/100 ML IVPB 100 ML IV ONE (13:30)
--- OUTSIDE RECORDS SUMMARY | 2017-08-27 14:28 | XMS REPORT | Encounter Summary ---
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 Pt denies any changes since last visit. Medication Update Alphagan TID OU, Trusopt BID OD. FYI OCT(N) ordered today. 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
--- OUTSIDE RECORDS SUMMARY | 2017-08-27 14:28 | XMS REPORT | Encounter Summary ---
Author Author [facility] Organization 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 Medication Update Brimonidine TID OU, Dorzolomide BID OU, Latanoprost QHS OU. Vision Change Pt denies changes in VA since last visit. Encounter Details Date Type Department Care Team Description 08/21/2017 Office Visit [facility] Queta Sutton MD Glaucoma due to Physicians - [address] combination [place] [address] (Primary Dx);Severe stage [address] [place] [phone] glaucoma [address] [place] [address] Social History Tobacco Use Types Packs/Day Years Used Date Former Smoker Cigarettes 2 45 Quit: 09/24/2005 Smokeless Tobacco: Never Used Alcohol Use Drinks/Week oz/Week Comments No 0 Standard 0.0 drinks or equivalent Sex Assigned at Date Recorded Not on file as of this encounter Progress Notes * Queta Sutton MD - 08/21/2017 10:00 AM UI DEVELOPER DESIGNER ASSESSMENT: MMG, OS>OD -iop higher than goal [...]
--- OUTSIDE RECORDS SUMMARY | 2017-08-27 14:28 | XMS REPORT | Clinical Summary ---
Author Author [facility] Organization [facility] Address Unknown Phone Unavailable Care Team Providers Care Assembler Leather Goods Name Role Phone PCP Unavailable Source Comments Some departments are not documenting in the electronic medical record. If you do not see the information that you expected, contact Release of Information in the Health Information Management department at [phone] for further assistance in locating additional records.[facility] Allergies No Known Allergies Current Medications Prescription [...] aortic root (HCC) 08/26/2013 Interstitial lung disease ([facility]) 08/25/2013 Emphysema/COPD ([facility]) 08/19/2013 Ascending aortic aneurysm ([facility]) 08/19/2013 Overview: 08/26/13 [facility] moderate diffuse CAD, moderate AI. Decreased diffusion capacity of lung 08/19/2013 CAD (coronary artery disease) 08/19/2013 Overview: 08/26/13 [facility] moderate diffuse CAD, moderate AI, dilated [...] Taken Blood Pressure 167/94 11/06/2016 10:57 AM LATCHER Pulse 80 11/06/2016 10:57 AM LATCHER Temperature 36.4 C (97.5 F) 08/26/2013 3:10 PM LATCHER Respiratory Rate 26 08/19/2013 1:22 PM LATCHER Oxygen Saturation 97% 08/26/2013 3:11 PM LATCHER Inhaled Oxygen - - Concentration Weight 54 [...] EXTEND (08/21/2017 12:33 PM) Specimen Performing Laboratory [facility] [address] [place] [address], [address] [place] [id number] * GONIOSCOPY (06/25/2017 2:33 PM) Specimen Performing Laboratory IN CLINIC Narrative Interpretation / Result: See exam * SCAN COMP OPHTHAL DIAG IMG, OP NERVE (06/25/2017 2:32 PM) Specimen Performing Laboratory [facility] [address] [place] [id number] from Last 3 Months
--- OUTSIDE RECORDS SUMMARY | 2017-08-27 14:28 | XMS REPORT | Encounter Summary ---
Author Author [facility] Organization [facility] Address Unknown Phone Unavailable Care Team Providers Care Digitizer Name Role Phone PCP Unavailable Reason for Visit * Reason Comments Eye Problem Pt here for VINOD OD today, S/P VINOD OD 06/21/17, Pt states VA stable. No new floaters, no flashes or pain. 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
--- OUTSIDE RECORDS SUMMARY | 2017-08-27 14:28 | XMS REPORT | Continuity of Care Document ---
Author Author [facility] Organization [facility] Address Unknown Phone Unavailable Care Team Providers Care Net Maker Name Role Phone [employer] Unavailable Unavailable Problems Medications Allergies, Adverse Reactions, Alerts Immunizations Results Vital Signs Encounters Location Location Details Encounter Type Encounter Number Reason For Visit Attending Provider ADM Date DC Date Status Source OUTPATIENT [id number] ALFREDO MAYES 08/19/201308/19 Active [facility] Kim DENNIS 07/19/2017 Active [facility] Procedures Plan of Care Social History Assessment and Plan Family History Value Date Source Advance Directives Order Name Results Value Date Source
--- OUTSIDE RECORDS SUMMARY | 2017-08-27 14:29 | XMS REPORT | Encounter Summary ---
Author Author [facility] Organization [facility] Address Unknown Phone Unavailable Care Team Providers Care Branch Office Administrator Name Role Phone PCP Unavailable Reason for [...] Eye Vitamin PO, Purple Top BID OD, [place] Top TID OD Encounter Details Date Type Department Care Team Description 06/21/2017 Procedure visit [facility] Ash Pressley MD Central retinal vein Physicians - [address] occlusion [place] [address] edema of both eyes [address] [place] [phone] (Primary Dx);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
[2017-08-27 15:00] VITALS: BP 162/71
--- NOTE | 2017-08-27 15:06 | History & Physical-Hospitalist ---
HPI History of Present Illness: HPI/Chief Complaint Pt is a 76yoCM with a PMH of soft palate cancer who presented to the ER with CC of SOB and cough. He reports his symptoms started around 5 days ago and have continued to get worse. He denies any fevers or chills mostly just SOB and cough. His SOB got worse last night despite increasing his oxygen prompting him to come to the ER today. He was found to have bilateral pneumonia and meet sepsis criteria. He was admitted for further treatment. I called and spoke with his PCP Carlos Fernandez APRN who reports he has continued to get worse over the past few months and has had pneumonia roughly 3-4x since April. Source: patient, RN/MD Date Seen 08/27/17 Time Seen by Provider: 15:15 Attending Physician Jay Young MD PCP Refugio Bonner MD Referring Physician Date of Admission Aug 27, 2017 at 13:25 Home Medications & Allergies Home Medications Reviewed patient Home Medication Reconciliation Form Allergies Allergies Coded Allergies No Known Drug Allergies (Vavgtuut85/4/17) Past Idcwutv-Rmpaau-Kzftrh Hx Patient Social History Alcohol Use: Denies Use Recreational Drug Use: No Smoking Status: Former Smoker Recent Foreign Travel: No Contact w/other who traveled: No Recent Hopitalizations: No Recent Infectious Disease Expo: No Immunizations Up To Date Tetanus Booster (TDap): More than 5yrs Pediatric: Yes Date of Pneumonia Vaccine: Aug 23, 2017 Date of Influenza Vaccine: Aug 23, 2017 Surgeries Yes (THROAT/ FOR CA/ RADICAL NECK DISSECTION, BACK SURGERY) Respiratory Yes Cardiovascular Yes (AAA UNABLE TO HAVE FIXED DUE TO POOR HEALTH) Neurological No Reproductive System Hx Reproductive Disorders: No Sexually Transmitted Disease: No HIV/AIDS: No Genitourinary Prostate Problems Gastrointestinal Yes Gastroesophageal Reflux, Polyps Musculoskeletal Yes (HX OF BACK SURGERY) Arthritis, Fractures Endocrine History of Endocrine Disorders: Yes (DUE TO CA) Endocrine Disorders: Hypothyroidsim HEENT HEENT Disorders: Cataract Loss of Vision: Left Hearing Impairment: Hard of Hearing, Deaf Cancer Yes Prostate, Oral Psychosocial History of Psychiatric Problem: Yes Behavioral Health Disorders: Anxiety, Depression Integumentary History of Skin or Integumenta: Yes (SKIN LESIONS) Blood Transfusions History of Blood Disorders: Yes (ANEMIA) Adverse Reaction to a Blood Tr: No Family Medical History Family Hx: Patient reports no known family medical history. Review of Systems Constitutional: No chills, No fever, weakness, weight loss (50 lbs over 6 months) EENTM: hoarseness, No blurred vision, No double vision, No nose congestion, No throat pain Respiratory: cough, dyspnea on exertion, short of breath Cardiovascular: No chest pain, No edema, No palpitations Gastrointestinal: No abdominal pain, No constipation, No diarrhea, loss of appetite, No nausea, No vomiting Genitourinary: No dysuria, No frequency Musculoskeletal: No joint pain, No muscle pain Skin: No lesions, No rash Psychiatric/Neurological: Denies Headache, Denies Numbness, Denies Tingling Physical Exam Physical Exam Vital Signs Vital Sign - Last 12Hours Capillary Refill : Less Than 3 Seconds General Appearance: No Apparent Distress, Cachetic HEENT: PERRL/EOMI, Moist Mucous Membranes Neck: Non Tender, Supple Respiratory: No Accessory Muscle Use, No Respiratory Distress, Crackles (L>R), No Rhonci, No Stridor, No Wheezing Cardiovascular: Regular Rate, Rhythm, No Murmur Gastrointestinal: Normal Bowel Sounds, Non Tender, Soft Extremity: Normal Capillary Refill, No Calf Tenderness Neurologic/Psychiatric: Alert, Oriented x3, Normal Mood/Affect Skin: Normal Color, Warm/Dry Results Results/Procedures Lab Laboratory Tests 08/27/17 11:55 Assessment/Plan Admission Diagnosis CAP Diagnosis/Problems Diagnosis/Problems (1) Sepsis Status: Acute Assessment & Plan: leukocytosis and tachycardia due to CAP Lactic normal no hypotensive No signs of severe sepsis, no fluid bolus needed Cotinue IV abx (rocephin/azithro) Blood cultures drawn in ED Qualifiers: Qualified Codes: A41.9 - Sepsis, unspecified organism (2) CAP (community acquired pneumonia) Assessment & Plan: bilateral CURB65 score 1 Continue Rocephin/Azithromycin for CAP coverage Check strep pna and legionella antigen (3) COPD (chronic obstructive pulmonary disease) Status: Acute Assessment & Plan: Baseline 4lpm oxygen requirement MAT protocol Qualifiers: Qualified Codes: J44.0 - Chronic obstructive pulmonary disease with acute lower respiratory infection (4) Hyponatremia Status: Chronic Assessment & Plan: Mild, at his baseline (5) Hypomagnesemia Status: Acute Assessment & Plan: replaced in the ER Will recheck in AM (6) Cancer of palate Status: Chronic Assessment & Plan: Follows with oncology (7) Normocytic anemia Status: Chronic Assessment & Plan: Baseline 10-11 Slightly below baseline Trend (8) Prophylactic measure Assessment & Plan: Lovenox NS at 100ml/hr Regular Diet as tolerates Clinical Quality Measures AMI/AHF: ASA po Prior to arrival: JAY Almaraz MD Aug 27, 2017 3:06 pm
[2017-08-27] MEDS ORDERED: ALBU2.5V4 IH (15:58)
[2017-08-27] MEDS ORDERED: FLUT1DIS26 IH (15:58)
[2017-08-27] MEDS ORDERED: IPRA4AER IH (15:58)
[2017-08-27] MEDS ORDERED: BRIN8DRO OU (15:58)
[2017-08-27] MEDS ORDERED: PRED5TAB PO (15:58)
[2017-08-27] MEDS ORDERED: RIVA20TA PO (15:58)
[2017-08-27] MEDS ORDERED: LEVO112T55 PO (15:58)
[2017-08-27] MEDS ORDERED: DORZ10DR2 OU (15:58)
[2017-08-27] MEDS ORDERED: OMEP40CA36 PO (15:58)
[2017-08-27] MEDS ORDERED: ALPR0.5T7 PO (15:58)
[2017-08-27] MEDS ORDERED: PARO20TA5 PO (15:58)
[2017-08-27] MEDS ORDERED: BRIM5DRO2 OU (15:58)
[2017-08-27] MEDS ORDERED: MONT10TA24 PO (15:58)
[2017-08-27] MEDS ORDERED: ONDANSETRON 4 MG/2 ML (SDV) Z0FRAN IV PRN (16:00)
[2017-08-27] MEDS ORDERED: AZITHROMYCIN 500 MG/NS 250 ML IVPB IV NR ×2 (16:00)
[2017-08-27] MEDS ORDERED: ACETAMINOPHEN 500 MG TAB (TYLENOL) PO PRN (16:00)
[2017-08-27] MEDS ORDERED: CATHETER FLUSH 10 ML SYR IV PRN (16:00)
[2017-08-27] MEDS ORDERED: IBUPROFEN 800 MG (MOTRIN) TAB PO PRN (16:00)
[2017-08-27 16:10] VITALS: BP 119/83
[2017-08-27] MEDS ORDERED: cefTRIAXone INJECTION 1,000 MG in NS (IVPB) 50 ML IV SCH (16:15)
[2017-08-27] MEDS: NS IV 1000 ML 1,000 ML IV SCH ×2 (16:25→23:29)
[2017-08-27] MEDS ORDERED: RT-ALBUTEROL/IPRATROPIUM 3 ML (DUONEB) VIAL INH PRN (16:30)
[2017-08-27 19:26] VITALS: BP 126/55
[2017-08-27] MEDS: RT-ALBUTEROL/IPRATROPIUM 3 ML (DUONEB) VIAL INH SCH ×2 (19:47→22:52)
[2017-08-27] MEDS: HYDROCORTISONE 20 MG (CORTEF) TAB PO SCH (20:21)
[2017-08-27] MEDS ORDERED: LATANOPROST 0.005% (XALATAN) OPHTH SOLN 2.5 ML OU SCH (21:00)
[2017-08-27] MEDS ORDERED: MONTELUKAST 10 MG (SINGULAIR) TAB PO SCH (21:00)
[2017-08-27] MEDS: ALPRAZolam 0.5 MG (XANAX) TAB PO PRN (22:11)
[2017-08-27 22:55] LABS: BILIRUBIN,URINE NEGATIVE (NEGATIVE); KETONES,URINE NEGATIVE (NEGATIVE); LEUKOCYTE ESTERASE ,URINE NEGATIVE (NEGATIVE); NITRITE,URINE NEGATIVE (NEGATIVE); PH,URINE 6 (5-9); PROTEIN,URINE 3+ (NEGATIVE); UROBILINOGEN,URINE 1 MG/DL (NORMAL)
[2017-08-28 00:59] VITALS: BP 138/66
[2017-08-28] MEDS: NS IV 1000 ML 1,000 ML IV SCH ×2 (02:44→08:15)
[2017-08-28] MEDS: RT-ALBUTEROL/IPRATROPIUM 3 ML (DUONEB) VIAL INH SCH ×3 (02:49→11:43)
[2017-08-28 04:20] VITALS: BP 147/68
[2017-08-28] MEDS: ALPRAZolam 0.5 MG (XANAX) TAB PO PRN (05:45)
[2017-08-28] MEDS ORDERED: LEVOTHYROXINE 112 MCG (LEVOTHROID) TAB PO SCH (06:30)
[2017-08-28 07:01] LABS: BASOPHILS % (AUTO) 0 % (0-10); EOSINOPHILS % (AUTO) 0 % (0-10); LYMPHOCYTES # (AUTO) 0.7 X 10^3 (1.0-4.0); LYMPHOCYTES % (AUTO) 9 % (12-44); MEAN CORPUSCULAR HEMOGLOBIN 26 PG (25-34); MEAN CORPUSCULAR HGB CONC 31 G/DL (32-36); MEAN CORPUSCULAR VOLUME 84 FL (80-99); MEAN PLATELET VOLUME 9.6 FL (7.4-10.4); MONOCYTES # (AUTO) 0.6 X 10^3 (0.0-1.0); MONOCYTES % (AUTO) 8 % (0-12); NEUTROPHILS # (AUTO) 6.3 X 10^3 (1.8-7.8); NEUTROPHILS % (AUTO) 83 % (42-75); PLATELET COUNT 298 10^3/uL (130-400); RED CELL DISTRIBUTION WIDTH 15.5 % (10.0-14.5); WHITE BLOOD COUNT 7.5 10^3/uL (4.3-11.0)
[2017-08-28 07:20] LABS: ANION GAP 9 MMOL/L (5-14); BLOOD UREA NITROGEN 16 MG/DL (7-18); BUN/CREATININE RATIO 22; CALCIUM 8.6 MG/DL (8.5-10.1); CARBON DIOXIDE 23 MMOL/L (21-32); CHLORIDE 102 MMOL/L (98-107); CREATININE SERUM 0.73 MG/DL (0.60-1.30); GFR ESTIMATED > 60; GLUCOSE 115 MG/DL (70-105); SODIUM 134 MMOL/L (135-145)
[2017-08-28 07:55] VITALS: BP 163/80
[2017-08-28] MEDS ORDERED: predniSONE 5 MG TAB PO SCH (08:00)
[2017-08-28] MEDS ORDERED: RIVAROXABAN 20 MG TABLET (XARELTO) PO SCH (08:00)
[2017-08-28] MEDS: HYDROCORTISONE 20 MG (CORTEF) TAB PO SCH (08:15)
[2017-08-28] MEDS ORDERED: IMIPRAMINE 25 MG (TOFRANIL) TAB PO SCH (09:00)
[2017-08-28] MEDS ORDERED: cefTRIAXone 1 GM/NS 50 ML IVPB IV SCH ×2 (09:00)
[2017-08-28] MEDS ORDERED: AZITHROMYCIN 250 MG TAB (ZITHROMAX) PO SCH (09:00)
[2017-08-28] MEDS ORDERED: PARoxetine 20 MG (PAXIL) TAB PO SCH (09:00)
[2017-08-28] MEDS ORDERED: CEFD300C3 PO (11:40)
[2017-08-28 12:00] VITALS: BP 179/72
--- NOTE | 2017-08-28 12:20 | Discharge Summary-Hospitalist ---
Diagnosis/Chief Complaint Date of Admission Aug 27, 2017 at 1:25 pm Date of Discharge Discharge Date: Aug 28, 2017 Admission Diagnosis CAP Discharge Diagnosis (1) Sepsis Status: Resolved Assessment & Plan: leukocytosis and tachycardia now resolved due to CAP Lactic normal Transition to oral abx (Omnicef) Blood cultures drawn in ED Flu negative (2) CAP (community acquired pneumonia) Assessment & Plan: bilateral CURB65 score 1 Continue abx, switch to Rocephin Strep pna and legionella antigen- pending (3) COPD (chronic obstructive pulmonary disease) Status: Acute Assessment & Plan: Baseline 4lpm oxygen requirement MAT protocol (4) Hyponatremia Status: Chronic Assessment & Plan: Mild, at his baseline (5) Hypomagnesemia Status: Resolved Assessment & Plan: replaced in the ER (6) Cancer of palate Status: Chronic Assessment & Plan: Follows with oncology (7) Normocytic anemia Status: Chronic Assessment & Plan: Baseline 10-11 Slightly below baseline Trend- discussed this with PCP Kaylynn Zarate (8) Prophylactic measure Assessment & Plan: Lovenox Saline lock Regular Diet as tolerates Discharge Summary Discharge Physical Examination Allergies: Coded Allergies: No Known Drug Allergies (Verified , 08/27/17) Vitals & I&Os Vital Signs Date Time Temp Pulse Resp B/P (MAP) Pulse Ox O2 Delivery O2 Flow Rate FiO2 08/28/17 11:46 Nasal Cannula 4.00 08/28/17 07:55 97.5 84 22 163/80 (107) 89 Hospital Course Patient presented to the ER with cough and SOB and was found to have bilateral pneumonia and met sepsis criteria. He was admitted for IV abx and responded well. He was back on his home oxygen requirement and ready for discharge on Day 2 of admission. He was transitioned to oral antibiotics (Omnicef) to complete a 7 day course. Labs (last 24 hrs) Laboratory Tests 08/27/17 13:10: Lactic Acid Level 1.37 08/27/17 22:46: Urine Color AMBERH, Urine Clarity CLEAR, Urine pH 6, Urine Specific [place] 1.020, Urine Protein 3+H, Urine Glucose (UA) NEGATIVE, Urine Ketones NEGATIVE, Urine Nitrite NEGATIVE, Urine Bilirubin NEGATIVE, Urine Urobilinogen 1, Urine Leukocyte Esterase NEGATIVE, Urine RBC (Auto) 3+H, Urine RBC 2-5H, Urine WBC NONE, Urine Squamous Epithelial Cells 2-5, Urine Crystals NONE, Urine Bacteria NONE, Urine Casts NONE, Urine Mucus NEGATIVE, Urine Culture Indicated NO 08/28/17 06:28: White Blood Count 7.5, Red Blood Count 3.40L, Hemoglobin 8.9L, Hematocrit 29L, Mean Corpuscular Volume 84, Mean Corpuscular Hemoglobin 26, Mean Corpuscular Hemoglobin Concent 31L, Red Cell Distribution Width 15.5H, Platelet Count 298, Mean Platelet Volume 9.6, Neutrophils (%) (Auto) 83H, Lymphocytes (%) (Auto) 9L , Monocytes (%) (Auto) 8, Eosinophils (%) (Auto) 0, Basophils (%) (Auto) 0, Neutrophils # (Auto) 6.3, Lymphocytes # (Auto) 0.7L, Monocytes # (Auto) 0.6, Eosinophils # (Auto) 0.0, Basophils # (Auto) 0.0, Sodium Level 134L, Potassium Level 4.0, Chloride Level 102, Carbon Dioxide Level 23, Anion Gap 9, Blood Urea Nitrogen 16, Creatinine 0.73, Estimat Glomerular Filtration Rate > 60, BUN/ Creatinine Ratio 22, Glucose Level 115H, Calcium Level 8.6 Microbiology 08/27/17 Influenza Types A,B Antigen (HENNY) - Final, Complete Pending Labs Laboratory Tests 08/28/17 06:28: White Blood Count 7.5, Red Blood Count 3.40, Hemoglobin 8.9, Hematocrit 29, Mean Corpuscular Volume 84, Mean Corpuscular Hemoglobin 26, Mean Corpuscular Hemoglobin Concent 31, Red Cell Distribution Width 15.5, Platelet Count 298, Mean Platelet Volume 9.6, Neutrophils (%) (Auto) 83, Lymphocytes (%) (Auto) 9, Monocytes (%) (Auto) 8, Eosinophils (%) (Auto) 0, Basophils (%) (Auto) 0, Neutrophils # (Auto) 6.3, Lymphocytes # (Auto) 0.7, Monocytes # (Auto) 0.6, Eosinophils # (Auto) 0.0, Basophils # (Auto) 0.0, Sodium Level 134, Potassium Level 4.0, Chloride Level 102, Carbon Dioxide Level 23, Anion Gap 9, Blood Urea Nitrogen 16, Creatinine 0.73, Estimat Glomerular Filtration Rate > 60, BUN/ Creatinine Ratio 22, Glucose Level 115, Calcium Level 8.6 Discharge Home Medications: Active Scripts Active Cefdinir 300 Mg Capsule 300 Mg PO BID 5 Days Reported Omeprazole 40 Mg Capsule.dr 40 Mg PO DAILY Combivent Respimat Inhal Waves (Albuterol/Ipratropium) 4 Gm Aero 1 Puff IH QID Albuterol Sulfate 2.5 Mg/3 Ml Vial.neb 2.5 Mg IH Q4H PRN Advair 250-50 Diskus (Fluticasone/Salmeterol) 1 Each Blst.w.dev 1 Puff IH BID Simbrinza 1%-0.2% Eye Drops (Brinzolamide/Brimonidine Tart) 8 Ml Drops.susp 1 Drop OU TID Montelukast Sodium 10 Mg Tablet 10 Mg PO HS Alprazolam 0.5 Mg Tablet 0.5 Mg PO BID PRN Prednisone 5 Mg Tablet 5 Mg PO DAILY Paroxetine HCl 20 Mg Tablet 20 Mg PO DAILY Xarelto (Rivaroxaban) 20 Mg Tablet 20 Mg PO DAILY Levothyroxine Sodium 112 Mcg Tablet 112 Mcg PO DAILY Latanoprost 2.5 Ml Drops 1 Drop OU HS Imipramine HCl 25 Mg Tablet 25 Mg PO DAILY Hydrocortisone 20 Mg Tablet 10 Mg PO BID Instructions to patient/family Please see electronic discharge instructions given to patient. Clinical Quality Measures AMI/AHF: ASA po Prior to arrival: No DVT/VTE Risk/Contraindication: Risk Factor Score Per Nursin RFS Level Per Nursing on Admit: 4+=Very High Sepsis: Within 3hrs of presentation: Admin ABX, Blood cultures prior to ABX's, Lactate level Pneumonia: Pseudomonal Risk: COPD Copy Copies To 1: KAYLYNN ZARATE APRN Problem Qualifiers (1) Sepsis: Sepsis type: sepsis due to unspecified organism Qualified Codes: A41.9 - Sepsis, unspecified organism (2) COPD (chronic obstructive pulmonary disease): COPD type: COPD with acute lower respiratory infection Qualified Codes: J44.0 - Chronic obstructive pulmonary disease with acute lower respiratory infection JAY CERVANTES MD Aug 28, 2017 12:20 pm
[2017-08-29 07:59] LABS: LEGIONELLA PNEU ANTIGEN URINE Negative; STREP PNEUMOCOCCUS ANTIG Negative
[2017-08-29] MEDS ORDERED: AZITHROMYCIN 250 MG TAB (ZITHROMAX) PO SCH (09:00)
== END 2017-08-28 14:35 | disposition home or self-care (01) | DRG 871 ==
LOC: EDUNIT# 11:40 → ER 11:42 → 4TH 13:25
PROVIDERS: ADMIT Family Medicine; ATTEND Family Medicine
DX: A41.9 Sepsis, unspecified organism (principal); J18.9 Pneumonia, unspecified organism; J44.0 Chronic obstructive pulmonary disease with (acute) lower respiratory infection; E87.1 Hypo-osmolality and hyponatremia; E83.42 Hypomagnesemia; I71.4 Abdominal aortic aneurysm, without rupture; K21.9 Gastro-esophageal reflux disease without esophagitis; C61 Malignant neoplasm of prostate; E03.9 Hypothyroidism, unspecified; F41.9 Anxiety disorder, unspecified; F32.9 Major depressive disorder, single episode, unspecified; D64.9 Anemia, unspecified; M19.91 Primary osteoarthritis, unspecified site; H91.90 Unspecified hearing loss, unspecified ear; H26.9 Unspecified cataract; R63.4 Abnormal weight loss; Z85.818 Personal history of malignant neoplasm of other sites of lip, oral cavity, and pharynx; Z99.81 Dependence on supplemental oxygen; Z79.52 Long term (current) use of systemic steroids; Z87.891 Personal history of nicotine dependence; Z90.09 Acquired absence of other part of head and neck; Z86.711 Personal history of pulmonary embolism; Z86.010 Personal history of colon polyps
CPT/HCPCS: 36415; 71010; 80048; 80053; 81000; 83605; 83735; 84484; 85007; 85025; 85027; 85610; 85730; 87040; 87449; 87804; 87899; 93005; 94640; 94760

== ENCOUNTER 2017-08-29 01:08 | Emergency (ER) | payer MEDICARE, OTHER ==
[~2017-08-29] VITALS: Ht 175.3 cm; Wt 52.8 kg
[~2017-08-29 01:08] MED LIST changes: +ALBU2.5V4 IH; +ALPR0.5T7 PO; +BRIM5DRO2 OU; +BRIN8DRO OU; +CEFD300C3 PO; +DORZ10DR2 OU; +FLUT1DIS26 IH; +IPRA4AER IH; +LEVO112T55 PO; +MONT10TA24 PO; +PARO20TA5 PO; +PRED5TAB PO; +RIVA20TA PO
[2017-08-29] MEDS ORDERED: SODIUM BICARB 8.4% 50 MEQ/50 ML (ABBOTT) SYR INJ ONE (01:11)
[2017-08-29] MEDS ORDERED: EPINEPHrine INJECTION 1 MG/ML AMP IJ ONE (01:11)
--- OUTSIDE RECORDS SUMMARY | 2017-08-29 01:14 | XMS REPORT | Continuity of Care Document ---
Author Author [employer] Organization [facility] Address Unknown Phone Unavailable Care Team Providers Care It Lead Name Role Phone [employer] Unavailable Unavailable Problems Medications Allergies, Adverse Reactions, Alerts Immunizations Results Vital Signs Encounters Location Location Details Encounter Type Encounter Number Reason For Visit Attending Provider ADM Date DC Date Status Source OUTPATIENT [id number] ALFREDO MAYES 08/19/201308/19 Active [facility] Kim DENNIS 07/19/2017 Active [facility] Procedures Plan of Care Social History Assessment and Plan Family History Value Date Source Advance Directives Order Name Results Value Date Source
--- OUTSIDE RECORDS SUMMARY | 2017-08-29 01:15 | XMS REPORT | Encounter Summary ---
Author Author [facility] Organization [facility] Address Unknown Phone Unavailable Care Team Providers Care Sales Representative Publications Name Role Phone PCP Unavailable Reason for Visit * Reason Comments Eye Problem Pt here for VINOD OD today, S/P VINOD OD 06/21/17, Pt states VA stable. No new floaters, no flashes or pain. Medications Only Brimonidine TID OD, Dorzolamide BID OD, Latanaprost qhs OD , Eye Vits POI Encounter Details Date Type Department Care Team Description 07/19/2017 Procedure visit [facility] 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
--- OUTSIDE RECORDS SUMMARY | 2017-08-29 01:15 | XMS REPORT | Clinical Summary ---
Author Author [facility] Organization [facility] Address Unknown Phone Unavailable Care Team Providers Care Family Support Coordinator Name Role Phone PCP Unavailable Source Comments Some departments are not documenting in the electronic medical record. If you do not see the information that you expected, contact Release of Information in the Health Information Management department at [phone] for further assistance in locating additional records.[facility] Allergies No Known Allergies Current Medications [...] aortic root (HCC) 08/26/2013 Interstitial lung disease ([facility] 08/25/2013 Emphysema/COPD ([facility]) 08/19/2013 Ascending aortic aneurysm ([facility]) 08/19/2013 Overview: 08/26/13 [facility] moderate diffuse CAD, moderate AI. Decreased diffusion capacity of lung 08/19/2013 CAD (coronary artery disease) 08/19/2013 Overview: 08/26/13 [facility] moderate diffuse CAD, moderate AI, dilated [...] Taken Blood Pressure 167/94 11/06/2016 10:57 AM TRANSFUSION AIDE Pulse 80 11/06/2016 10:57 AM TRANSFUSION AIDE Temperature 36.4 C (97.5 F) 08/26/2013 3:10 PM TRANSFUSION AIDE Respiratory Rate 26 08/19/2013 1:22 PM TRANSFUSION AIDE Oxygen Saturation 97% 08/26/2013 3:11 PM TRANSFUSION AIDE Inhaled Oxygen - - Concentration Weight 54 [...] EXTEND (08/21/2017 12:33 PM) Specimen Performing Laboratory [facility] [address] [place] [address], [address] [place] [id number] * GONIOSCOPY (06/25/2017 2:33 PM) Specimen Performing Laboratory IN CLINIC Narrative Interpretation / Result: See exam * SCAN COMP OPHTHAL DIAG IMG, OP NERVE (06/25/2017 2:32 PM) Specimen Performing Laboratory [facility] [address] [place] [id number] from Last 3 Months
--- OUTSIDE RECORDS SUMMARY | 2017-08-29 01:15 | XMS REPORT | Encounter Summary ---
Author Author [facility] Organization [facility] Address Unknown Phone Unavailable Care Team Providers Care Client Service Representative Name Role Phone PCP Unavailable Reason for Visit * Reason Comments Eye Problem 5 wk FUV Injection OD, S/P VINDO OD 05/15/17, Pt states VA seems to be the same. Has floaters OD without changes. No flashes. Did have some pain when he got the injection last time and would like to try another way to numb the eye. 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
--- OUTSIDE RECORDS SUMMARY | 2017-08-29 01:15 | XMS REPORT | Encounter Summary ---
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 Medication Update Brimonidine TID OU, Dorzolomide BID OU, Latanoprost QHS OU. Vision Change Pt denies changes in [place] since last visit. Encounter Details Date Type Department Care Team Description 08/21/2017 Office Visit [facility] Queta Sutton MD Glaucoma due to Physicians - [address] combination of [place] [address] (Primary Dx);Severe stage [address] [place] [phone] [address] [place] [address] Social History Tobacco Use Types Packs/Day Years Used Date Former Smoker Cigarettes 2 45 Quit: 09/24/2005 Smokeless Tobacco: Never Used Alcohol Use Drinks/Week oz/Week Comments No 0 Standard 0.0 drinks or equivalent Sex Assigned at Date Recorded Not on file as of this encounter Progress Notes * Queta Sutton MD - 08/21/2017 10:00 AM [employer]INE[employer] ASSESSMENT: MMG, OS>OD -iop higher than goal (<15 OD, <12 OS) -on brimonidine OU and trusopt OD -[facility] 2014 OCT 07/10 Gonio 07/10 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 Pressley Pseudophakia OU PLAN: Continue [...]
--- OUTSIDE RECORDS SUMMARY | 2017-08-29 01:15 | XMS REPORT | Encounter Summary ---
Author Author [facility] Organization [facility] Address Unknown Phone Unavailable Care Team Providers Care Clerical Office Name Role Phone PCP Unavailable Reason for Visit * Reason Comments Eye Problem Pt here for glaucoma evaluation, Hx glaucoma suspect OD, Hx CRVO OD. Pt denies any changes since last visit. Medication Update Alphagan TID OU, Trusopt BID OD. FYI OCT(N) ordered today. Encounter Details Date Type Department Care Team Description 06/25/2017 Office Visit [facility] Queta Sutton MD Glaucoma due to Physicians - [address] combination of [place] [address] (Primary Dx) [address] [facility] [phone] [address] [place] [address] Social History Tobacco Use Types [...]
[2017-08-29] MEDS ORDERED: NOREPINEPHRINE 4 MG/4 ML (LEVOPHED) AMP IV ONE (01:29)
[2017-08-29] MEDS ORDERED: D5W IV SOLUTION (EXCEL) 250 ML IV ONE (01:29)
--- NOTE | 2017-08-29 01:47 | ED CPR ---
HPI-CPR General Stated Complaint: CP Source of Information: Old Records, Spouse Exam Limitations: Other (Cardiac arrest and orotracheally intubated) History of Present Illness Time Seen by Provider: 01:10 Initial Comments Patient arrived in the ER at approximately 0110 orotracheally intubated with a bradycardic 35-40 bpm faint pulse. EMS reports they were called at 12:30. The reports that she found the patient to be gasping for air and when the firefighters arrived he was still gasping but very slowly and ineffectually. When she called 911 and they were instructed her to lower the patient the floor began CPR so she did. EMS reports when they arrived CPR was being performed and when they put him on the monitor had initial a systole. After giving epinephrine they did get pulseless electrical activity and another round of CPR and they referred the patient to have a return of spontaneous circulation. They intubated the patient and brought him to the ER without using any kind of sedation or paralytics. 2 days ago the patient was in the ER seen by this provider for sepsis, pneumonia and was admitted. He had just gotten home about 1400 yesterday and was doing okay still coughing with some shortness of breath which progressively got worse throughout the evening. She implored him to go back to the ER but the patient did not want to go. He got 1 dose of oral antibiotics at home. She went to bed and the next time she checked on him was around 12:30 when he was gasping for air and that's when she called 911. Allergies and Home Medications Allergies Coded Allergies: No Known Drug Allergies (Verified , 08/27/17) Home Medications Albuterol Sulfate 2.5 Mg/3 Ml Vial.neb, 2.5 MG IH Q4H PRN for SHORTNESS OF BREATH, (Reported) Albuterol/Ipratropium 4 Gm Aero, 1 PUFF IH QID, (Reported) Alprazolam 0.5 Mg Tablet, 0.5 MG PO BID PRN for ANXIETY, (Reported) Brinzolamide/Brimonidine Tart 8 Ml Drops.susp, 1 DROP OU TID, (Reported) Cefdinir 300 Mg Capsule, 300 MG PO BID for 5 Days, #10 Prescribed by: JAY CERVANTES on 08/28/17 1140 Fluticasone/Salmeterol 1 Each Blst.w.dev, 1 PUFF IH BID, (Reported) Hydrocortisone 20 Mg Tablet, 10 MG PO BID, (Reported) Imipramine HCl 25 Mg Tablet, 25 MG PO DAILY, (Reported) Latanoprost 2.5 Ml Drops, 1 DROP OU HS, (Reported) Levothyroxine Sodium 112 Mcg Tablet, 112 MCG PO DAILY, (Reported) Montelukast Sodium 10 Mg Tablet, 10 MG PO HS, (Reported) Omeprazole 40 Mg Capsule.dr, 40 MG PO DAILY, (Reported) Paroxetine HCl 20 Mg Tablet, 20 MG PO DAILY, (Reported) Prednisone 5 Mg Tablet, 5 MG PO DAILY, (Reported) Rivaroxaban 20 Mg Tablet, 20 MG PO DAILY, (Reported) Review of Systems Constitutional: see HPI (patient is unable to give a review of systems beyond what some history of present illness given his orotracheal intubation.) Past Oiintkf-Tvayqh-Bhctqc Hx Patient Social History Former Smoker, Quit: Aug 24, 2006 Recent Foreign Travel: No Contact w/Someone Who Travel: No Recent Hopitalizations: No Immunizations Up To Date Tetanus Booster (TDap): More than 5yrs PED Vaccines UTD: Yes Date of Pneumonia Vaccine: Aug 23, 2017 Date of Influenza Vaccine: Aug 23, 2017 Surgeries History of Surgeries: Yes (THROAT/ FOR CA/ RADICAL NECK DISSECTION, BACK SURGERY) Respiratory History of Respiratory Disorde: Yes Respiratory Disorders: Pulmonary Embolism, COPD Cardiovascular History of Cardiac Disorders: Yes (AAA UNABLE TO HAVE FIXED DUE TO POOR HEALTH) Neurological History of Neurological Disord: No Reproductive System Hx Reproductive Disorders: No Sexually Transmitted Disease: No HIV/AIDS: No Genitourinary Genitourinary Disorders: Prostate Problems Gastrointestinal History of Gastrointestinal Di: Yes Gastrointestinal Disorders: Gastroesophageal Reflux, Polyps Musculoskeletal History of Musculoskeletal Dis: Yes (HX OF BACK SURGERY) Musculoskeletal Disorders: Arthritis, Fractures Endocrine History of Endocrine Disorders: Yes (DUE TO CA) Endocrine Disorders: Hypothyroidsim HEENT HEENT Disorders: Cataract Loss of Vision: Left Hearing Impairment: Hard of Hearing, Deaf Cancer History of Cancer: Yes Cancer: Prostate, Oral Psychosocial History of Psychiatric Problem: Yes Behavioral Health Disorders: Anxiety, Depression Integumentary History of Skin or Integumenta: Yes (SKIN LESIONS) Blood Transfusions History of Blood Disorders: Yes (ANEMIA) Adverse Reaction to a Blood Tr: No Family Medical History Family Medial History: FH: lung cancer 19 FATHER FHx: diabetes mellitus 19 MOTHER Physical Exam Vital Signs Vital Sign - Last 12Hours Capillary Refill : General Appearance: Severe Distress, Other (cardiopulmonary arrest) HEENT: Other (pupils are fixed at 4 mm nonreactive to light and accommodation and he has no reaction to noxious stimuli or corneal stimuli.) Neck: Other (orotracheally intubated at 19 at the gums.) Respiratory: Lungs Clear, Other (symmetric breath sounds bilaterally.) Cardiovascular: No Edema, Bradycardia, Other (barely palpable carotid pulse) Gastrointestinal: Soft, Abnormal Bowel Sounds (absent), No Distended, Other ( no air sounds over the epigastric region on inspiration by [id number] area) Extremity: Normal Inspection, Slow Capillary Refill (greater than 3 seconds), No Swelling Neurologic/Psychiatric: Other (GCS 3T) Skin: Cool, Pallor Focused Exam Evaluation Sepsis Stage: Septic Shock Possible Source: Pulmonary Progress/Results/Core Measures Results/Orders My Orders Orders - ALEXANDRO CASTREJON D5w Iv Solution ([place]) (Dextrose 5% [place] (08/29/17 01:29) Norepinephrine (Levophed) (08/29/17 01:29) Ns Iv 1000 Ml (Sodium Chloride 0.9%) (08/29/17 03:08) Norepinephrine (Levophed) (08/29/17 03:30) Ns Iv 1000 Ml (Sodium Chloride 0.9%) (08/29/17 03:19) Medications Given in ED Current Medications Medications Dose Ordered Sig/Ming Route Start Time Stop Time Status Last Admin Dose Admin Sodium Chloride 2,000 ml @ 0 mls/hr Q0M ONCE IV 08/29/17 03:19 08/29/17 03:22 DC 08/29/17 01:15 0 MLS/HR Vital Signs/I&O Vital Sign - Last 12Hours 08/29/17 08/29/17 08/29/17 01:10 01:10 03:35 Temp 96.1 96.1 Pulse 28 0 Resp 16 0 B/P (MAP) Pulse Ox 86 0 O2 Delivery Ambu-Bag Ambu Bag Progress Note : Time: 03:30 Progress Note Please refer to nursing notes for dosing and times. Most likely septic shock leading to cardiopulmonary collapse. Patient arrived in the ER with a barely palpable pulse and shortly thereafter went back into cardiopulmonary arrest. We initiated 2 L normal saline flush and started a second IV in his right arm. He has a small IV in his left forearm. We gave an amp of bicarbonate continue giving epinephrine and on all pulse checks we saw this bradycardic pulseless electrical activity. Sats registered in the 50-60 range. An ABG was not able to be obtained. We assessed the airway and it was patent with good symmetrical bilateral breath sounds and no air sounds in the stomach. His airway was suctioned with only modest amount of bloody secretions. His skin was pale and given his likely septic shock due to his pneumonia we initiated Levophed drip in addition to her other resuscitative efforts. We were able to briefly get her spontaneous return of circulation and a blood pressure of 106/33 this was for only a brief amount of time. We never saw atrial fibrillation. We were not able to get return of circulation long enough to obtain a chest x-ray or EKG. We did discuss with the and she was present at the bedside per her wishes. At about 65 minutes of total CPR time the patient's pupils became unequal and on reactive to light and were unable to return of pulse despite maximal, aggressive resuscitative efforts from the entire team. We discussed the increasing futility of a meaningful neurologic recovery with the and she agreed that we should discontinue our resuscitative efforts at this time. CPR was held at 0139 and the patient was without heart tones, spontaneous respirations or reaction to noxious corneal stimuli. Critical Care Note Critical Care Start Time: 01:10 Stop Time: 01:39 Total Time (minutes) 29 mins Date of : Aug 29, 2017 Time of : 01:39 Departure Impression Impression: Primary Impression: Cardiopulmonary arrest Disposition: 20 Condition: Departure-Patient Inst. Referrals: JOSE SKAGGS MD (PCP/Family) Primary Care Physician Copy Copies To 1: JOSE SKAGGS MD, TITUS J Aug 29, 2017 01:47
[2017-08-29] MEDS ORDERED: NS IV 1000 ML 2,000 ML ONE (03:08)
[2017-08-29] MEDS ORDERED: NS IV 1000 ML 2,000 ML IV ONE (03:19)
[2017-08-29] MEDS ORDERED: NOREPINEPHRINE 4 MG in D5W IV SOLUTION (EXCEL) 250 ML IV SCH (03:30)
[2017-08-29 03:35] VITALS: BP 0/0
== END 2017-08-29 03:35 | disposition expired ==
LOC: EDUNIT# 01:08 → ER 01:10
DX: I46.9 Cardiac arrest, cause unspecified (principal); J44.9 Chronic obstructive pulmonary disease, unspecified; K21.9 Gastro-esophageal reflux disease without esophagitis; E03.9 Hypothyroidism, unspecified; F41.9 Anxiety disorder, unspecified; F32.9 Major depressive disorder, single episode, unspecified; Z85.46 Personal history of malignant neoplasm of prostate; Z80.1 Family history of malignant neoplasm of trachea, bronchus and lung; Z86.010 Personal history of colon polyps; Z85.848 Personal history of malignant neoplasm of other parts of nervous tissue; Z86.711 Personal history of pulmonary embolism
CPT/HCPCS: 93041